=== PATIENT | male | born 1950 | race Caucasian/White ===

== ENCOUNTER 2018-09-15 08:40 | Inpatient (IN) | payer OTHER ==
--- OUTSIDE RECORDS SUMMARY | 2018-09-15 08:45 | XMS REPORT | Clinical Summary ---
:1950 Author Organization [facility] Address [address] [place] [address] Care Team Providers Name Role Phone John Dunbar MD Primary Care Provider Allergies Active Allergy Reactions Severity Noted Date Comments Naproxen Sodium Shortness Of Breath High 03/06/2017 Hives, palpitations Hydrocodone-Acetaminophen Shortness Of Breath High 03/06/2017 Hives, palpitations Medications Medication Sig Dispensed Refills Start End Status Date Date diazePAM (VALIUM) 5 MG Take 5 mg by 0 Active tablet mouth as needed for anxiety. aspirin (ECOTRIN) 81 MG Take 81 mg by 0 Active enteric coated tablet mouth every morning. phenazopyridine Take 1 tablet 50 tablet 0 12/07/19 Active (PYRIDIUM) 100 MG (100 mg total) 18 tablet by mouth 3 (three) times a day as needed for bladder spasms. tamsulosin (FLOMAX) 0.4 Take 2 180 capsule 3 02/12/20 Active mg capsuleIndications: capsules (0.8 18 BPH with mg total) by obstruction/lower mouth daily. urinary tract symptoms amLODIPine (NORVASC) 10 Take 1 tablet 90 tablet 3 06/24/19 Active mg tablet (10 mg total) 19 by mouth daily. atorvastatin (LIPITOR) Take 1 tablet 90 tablet 4 08/06/19 Active 80 MG tablet (80 mg total) 19 by mouth daily. Patient taking half tablet(40mg) daily hydroCHLOROthiazide TAKE 1 TABLET 90 tablet 3 09/02/19 Active (HYDRODIURIL) 25 MG BY MOUTH ONCE 19 tablet DAILY metoprolol tartrate Take 1 tablet 180 tablet 3 04/16/20 (LOPRESSOR) 100 mg (100 mg total) 17 018 tablet by mouth 2 (two) times a day. atorvastatin (LIPITOR) Take 0.5 90 tablet 3 04/26/20 Discontinued 80 MG tablet tablets (40 mg 17 019 total) by mouth daily. gabapentin (NEURONTIN) Take 1 tablet 30 tablet 0 09/06/19 600 mg tablet (600 mg total) 18 018 by mouth daily for 30 days. hydroCHLOROthiazide Take 1 tablet 90 tablet 3 09/05/19 Discontinued (HYDRODIURIL) 25 MG (25 mg total) 18 019 tablet by mouth daily. amLODIPine (NORVASC) 5 Take 5 mg by 0 Discontinued mg tablet mouth every 018 morning. GABAPENTIN ORAL Take 600 mg by 0 Discontinued mouth every 018 morning. tamsulosin (FLOMAX) 0.4 Take 1 capsule 90 capsule 3 10/08/19 Discontinued mg capsule,extended (0.4 mg total) 18 018 release by mouth 24hrIndications: BPH daily. with obstruction/lower urinary tract symptoms docusate sodium Take 1 capsule 60 capsule 0 10/16/19 (COLACE) 100 MG capsule (100 mg total) 18 018 by mouth 2 (two) times a day for 30 days. phenazopyridine Take 1 tablet 30 tablet 0 10/16/19 (PYRIDIUM) 100 MG (100 mg total) 18 018 tablet by mouth 3 (three) times a day for 10 days. amoxicillin-pot Take 1 tablet 1 tablet 0 11/16/19 clavulanate (AUGMENTIN) by mouth once 18 018 875-125 mg per for 1 dose. tabletIndications: Prophylaxis Hydronephrosis of left for kidney cystoscopy. ciprofloxacin (CIPRO) Take 500 mg by 0 Discontinued 500 MG tablet mouth once. 018 sulfamethoxazole-trimet Take 1 tablet 10 tablet 0 11/19/19 hoprim (BACTRIM DS) by mouth 2 18 018 800-160 mg per tablet (two) times a day for 5 days. docusate sodium Take 1 capsule 60 capsule 0 11/19/19 (COLACE) 100 MG capsule (100 mg total) 18 018 by mouth 2 (two) times a day for 30 days. oxybutynin XL (DITROPAN Take 1 tablet 15 tablet 0 11/18/ XL) 5 MG 24 hr tablet (5 mg total) 18 018 by mouth daily for 15 days. sulfamethoxazole-trimet Take 1 tablet 14 tablet 0 12/06/ hoprim (BACTRIM DS) by mouth 2 18 018 800-160 mg per tablet (two) times a day for 7 days. ciprofloxacin (CIPRO) Take 1 tablet 14 tablet 0 12/17/ 500 MG tablet (500 mg total) 18 018 by mouth 2 (two) times a day for 7 days. amLODIPine (NORVASC) 5 Take 1 tablet 90 tablet 0 05/14/20 Discontinued mg tablet (5 mg total) 18 019 by mouth every morning. atorvastatin (LIPITOR) Take 80 mg by 0 Discontinued 80 MG tablet mouth daily. 019 Patient taking half tablet(40mg) daily atorvastatin (LIPITOR) TAKE /2 90 tablet 0 08/04/ Discontinued 80 MG tablet TABLET BY 19 019 MOUTH EVERY DAY Active Problems Problem Noted Date Cervical spondylosis with myelopathy and radiculopathy 09/18/2017 Hydronephrosis 08/29/2017 Simple chronic bronchitis 04/22/2017 Overview: Patient with long standing smoking history. Current smoker with 1/2 PPD. totoal smoking history of more than 30 years with 1.5 PPD. Trying to stop smoking and currently doing on 1/2 PPD and using nicotine patches. He comes here for preop clearance for laminectomy surgery He otherwise denies any worsening sob. Never been admitted with copd exacerbation Started inhalers little while ago and is feeling better on those. He is not immunized and doesn't want to take flu and PNA shots. Exam is bland, PFT shows normal FEV1, GOLD stage A COPD Last Assessment & Plan: I would recommend to continue symbicort and spiriva as started previously Needs to take them in perioperative period as well He needs to stop smoking completely now, as stopping smoking around a month of surgery has been shown to minimize complications in perioperative period Perioperative steroids may help too. His PFT shows preserved FEV1, Will do CT chest for emphysema and also echo I want him to stop smoking, did extensive counseling, spent over 40 minutes Did counseling for vaccination as well. He is moderate risk for perioperative complications due to his age and COPD Essential hypertension 04/22/2017 Overview: His BP still high today Has been started on metoprolol 100 mg daily and also on HCTZ Last Assessment & Plan: Hypertension is unchanged. Continue current treatment regimen. Dietary sodium restriction. Weight loss. Regular aerobic exercise. Stop smoking. Continue current medications. I would suggest to change her to an alternative agent. BB has been shown to make COPD worse. I would suggest to use amlodipin or BROOKE-I Cervical spondylosis with myelopathy 03/11/2017 Tobacco abuse disorder 03/11/2017 Overview: Still smoking 1/2 PPD On nicotine patch 21 mg daily Last Assessment & Plan: He needs to be completely off smoking around the surgery time He should stop smoking now Spondylolisthesis of cervicothoracic region 03/11/2017 Spondylolisthesis of cervical region 03/11/2017 Cervical radiculopathy at C6 03/11/2017 Encounters Date Type Specialty Care Team Description 09/13/2018 Refill Cardiology Slade June MD 09/12/2018 Telephone Cardiology colleen Gilmore Lipangie Negrete RN dose 09/12/2018 Refill Cardiology Napoleon Gilmore Refusama Negrete RN 08/30/2018 Refill Cardiology Slade June MD 08/06/2018 Refill Cardiology Napoleon Gilmore RN 07/30/2018 Refill Slade Rosenthal MD 06/27/2018 Telephone Cardiology Sarabjit Result - Labs JOSEP Cordero 06/24/2018 Lab Lab Slade June HyperlipidemiaShay MD unspecified hyperlipidemia type 06/24/2018 Office Visit Cardiology Slade June Essential hypertension ( Primary Dx); MD Shay Hyperlipidemia, unspecified hyperlipidemia type 05/14/2018 Refill Cardiology Napoleon Gilmore RN 03/27/2018 Hospital Encounter Radiology 02/19/2018 Telephone Urology Deborah Jones MD 02/08/2018 Telephone Urology Robert BPH with MD Deborah obstruction/lower urinary tract symptoms 01/28/2018 Telephone Urology Jackeline Julian MA 01/15/2018 Telephone Urology Deborah Jones MD 01/03/2018 Office Visit Urology Robert, Elevated PSA (Primary Dx); MD Deborah Hydronephrosis of left kidney 12/24/2017 Hospital Encounter Radiology Robert, Other hydronephrosis MD Deborah 12/24/2017 Hospital Encounter Radiology Robert, Other hydronephrosis MD Deborah 12/17/2017 Telephone Urology Jackeline Julian MA 12/16/2017 Orders Only Urology Ginette Pathak MD 12/06/2017 Telephone Urology Eliel, Dysuria (Primary Dx) JOSEP Viveros 11/27/2017 Telephone Urology Eliel, Other hydronephrosis JOSEP Viveros (Primary Dx) 11/22/2017 Office Visit Urology Robert, Hydronephrosis, unspecified hydronephrosis type (Primary Dx); MD Deborah Elevated PSA 11/19/2017 Telephone Urology Deborah Jones MD 11/18/2017 Surgery Urology YAHAIRA Jones, LEFT MD Deborah RETROGRADE PYELOGRAM, LEFT URETEROSCOPY, LEFT STENT EXCHANGE 11/18/2017 Anesthesia Event Urology Hedy Richard MD 11/18/2017 Hospital Encounter Urology Deborah Jones MD 11/15/2017 Hospital Encounter Radiology Deborah Jones MD 11/15/2017 Hospital Encounter Radiology Robert, Hydronephrosis of MD Deobrah left kidney 11/15/2017 Pre-Admit Testing Pre-Admission Lucy Jonesnephrosis, Appointment Testing MD Deborah unspecified hydronephrosis type 11/15/2017 Procedure visit Urology Robert, Hydronephrosis of left kidney ( Primary Dx); MD Deborah Retained ureteral stent 11/15/2017 Orders Only Urology Ovidio, Hydronephrosis, Latasha, MA unspecified hydronephrosis type (Primary Dx) 10/29/2017 Telephone Urology Robert, BPH with MD Deborah obstruction/lower urinary tract symptoms (Primary Dx) 10/16/2017 Telephone Urology Deborah Jones MD 10/15/2017 Surgery Urology SHAY JonesO, LEFT MD Deborah RETROGRADE PYELOGRAM 10/15/2017 Anesthesia Event Urology Gogo Giang APRN 10/15/2017 Hospital Encounter Urology Deborah Jones MD 10/14/2017 Telephone Cardiology Mando, cardiac clearance HAY Negrete 10/09/2017 Telephone Urology Deborah Jones MD 10/08/2017 Documentation Pulmonology Caden, Faxed surgical HAY Shukla clearance 10/07/2017 Pre-Admit Testing Pre-Admission Robert, Preoperative testing Appointment Testing MD Deborah (Primary Dx) 10/07/2017 Office Visit Urology Robert, Hydronephrosis, unspecified hydronephrosis type (Primary Dx); MD Deborah BPH with obstruction/lower urinary tract symptoms 10/04/2017 Hospital Encounter Radiology Robert, Hydronephrosis, MD Deborah unspecified hydronephrosis type 10/02/2017 Telephone Urology Deborah Jones MD 10/01/2017 Telephone Urology Eliel, Lucynephrosis, JOSEP Viveros unspecified hydronephrosis type (Primary Dx) 09/19/2017 Telephone Neurosurgery Jossy Jimenez LVN 09/18/2017 Hospital Encounter General Surgery Danilo Garsia MD after 09/14/2017 Family History Medical History Relation Name Comments Arthritis Father Nick Baires Clotting disorder Father Nick Baires Heart attack Father Nick Baires Heart disease Father Nick Baires Heart failure Father Nick Baires Hypertension Father Nick Baires Arthritis Mother Diabetes Mother Relation Name Status Comments Father Nick Baires Mother Social History Tobacco Use Types Packs/Day Years Used Date Current Every Day Smoker Cigarettes 0.75 30 Started: 11/15/1985 Smokeless Tobacco: Never Used Tobacco Cessation: Ready to Quit: Yes Comments: pt trying to quit, has decreased from 2 packs to 1.5 packs now to 0.75 pack per day, using nicotine patch Alcohol Use Drinks/Week oz/Week Comments Yes 0-2 Glasses of wine 0.0 - 1.2 Sex Assigned at Date Recorded Not on file Job Start Date Occupation Industry Not on file Not on file Not on file Travel History Travel Start Travel End No recent travel history available. Last Filed Vital Signs Vital Sign Reading Time Taken Blood Pressure 167/77 06/24/2018 1:39 PM [employer] WORK[employer] Pulse 83 06/24/2018 1:39 PM [employer] Temperature 36.3 C (97.3 F) 11/18/2017 4:24 PM CDT Respiratory Rate 15 11/18/2017 4:24 PM CDT Oxygen Saturation 94% 11/18/2017 4:24 PM CDT Inhaled Oxygen Concentration - - Weight 78 kg (172 lb) 06/24/2018 1:39 PM [employer] WORK[employer] Height 172.7 cm (5' 8") 06/24/2018 1:39 PM [employer] Body Mass Index 26.15 06/24/2018 1:39 PM [employer] WORKER Plan of Treatment Date Type Specialty Care Team Description 09/23/2018 Office Visit Cardiology Slade June MD [address] [facility] [address] [place] [address] Health Maintenance Due Date Last Done Comments COLON CANCER SCREENING 1999 SHINGLES VACCINES (#1) 1999 65+ PNEUMOCOCCAL VACCINE (1 of 2 - PCV13) 2014 PNEUMOCOCCAL POLYSACCHARIDE VACCINE AGE 65 AND OVER 2014 INFLUENZA VACCINE 01/15/2019 Implants Implanted Type Area Ad Trafficker Device Shelf Model / Identifier Expiration Serial / Date Lot Stent Uretl Unvrsa 7fr 26cm Hydrphlc W/ Gw - [id number] Urological Left: [employer] UROLOGICAL 08/25/2019 [id number] / Implanted: Qty: 1 on 10/15/2017 by Deborah Jones MD Implants or Ureter, / Sets [place] [id number] Stent Uretl Unvrsa 6fr 28cm Hydrphlc W/ Gw - [id number] Urological Left: [employer] UROLOGICAL 08/06/2020 [id number] / Implanted: Qty: 1 on 11/18/2017 by Deborah Jones MD Implants or Ureter, / Sets [place] [id number] Procedures Procedure Name Priority Date/Time Associated Diagnosis Comments COPY RECEIVED FROM: Routine 06/24/2018 2:00 Results for this PM [employer] WORK[employer] procedure are in the results section. NON HDL CHOLESTEROL Routine 06/24/2018 2:00 Results for this (REFLEX [facility]) PM [employer] WORKER procedure are in the results section. CHOL/HDLC RATIO Routine 06/24/2018 2:00 Results for this (REFLEX [facility]) PM [employer] WORKER procedure are in the results section. LDL-CHOLESTEROL Routine 06/24/2018 2:00 Results for this (REFLEX [facility]) PM [employer] WORKER procedure are in the results section. TRIGLYCERIDES Routine 06/24/2018 2:00 Results for this PM [employer] WORKER procedure are in the results section. HDL CHOLESTEROL Routine 06/24/2018 2:00 Results for this PM [employer] WORKER procedure are in the results section. CHOLESTEROL Routine 06/24/2018 2:00 Results for this PM [employer] WORKER procedure are in the results section. COPY(IES) SENT TO: Routine 06/24/2018 2:00 Results for this PM [employer] WORK[employer] procedure are in the results section. LIPID PANEL Routine 06/24/2018 2:00 Hyperlipidemia, Results for this PM [employer] WORKER unspecified procedure are in hyperlipidemia type the results section. PROSTATE SPECIFIC Routine 01/03/2018 11:37 Elevated PSA Results for this ANTIGEN AM CDT procedure are in the results section. NM RENAL SCAN WFLOW Routine 12/24/2017 1:24 Other hydronephrosis Results for this FUNCT SGL INT W/MAG 3 PM CDT procedure are in the results section. US RENAL Routine 12/24/2017 12:05 Other hydronephrosis Results for this PM CDT procedure are in the results section. URINALYSIS, AUTOMATED Routine 12/11/2017 12:18 Dysuria Results for this WITH MICROSCOPY PM CDT procedure are in the results section. URINE CULTURE Routine 12/11/2017 12:18 Dysuria Results for this PM CDT procedure are in the results section. PROSTATE SPECIFIC Routine 11/22/2017 10:28 Hydronephrosis, Results for this ANTIGEN AM CDT unspecified procedure are in hydronephrosis type the results section. POC URINALYSIS Routine 11/22/2017 10:11 Hydronephrosis, Results for this DIPSTICK AM CDT unspecified procedure are in hydronephrosis type the results section. FL PYELOGRAM Routine 11/18/2017 3:00 Results for this RETROGRADE PM CDT procedure are in the results section. CYSTOSCOPY, WITH 11/18/2017 2:00 Hydronephrosis URETERAL STENT PM CDT REPLACEMENT Special Needs REQ 1400 START ANESTHESIA INTUBATION Routine 11/18/2017 1:52 PM CDT Procedure Note - Veronique Hayes - 11/18/2017 1:52 PM CDT Airway Performed by: VERONIQUE HAYES Authorized by: JAVI SEQUEIRA Location: [place] Difficult Airway: No Resident/DRUM DRIER/AA: VERONIQUE HAYES Performed by: resident/DRUM DRIER/AA Preoxygenated with 100% O2: Yes Mask Ventilation: Easy mask Final Airway Type: Supraglottic airway Final LMA: I-Gel LMA Size: 5 Number of Attempts at Approach: 1 URINALYSIS, AUTOMATED Routine 11/15/2017 3:23 Hydronephrosis of left Results for this WITH MICROSCOPY PM CDT kidney procedure are in Retained ureteral stent the results section. URINE CULTURE Routine 11/15/2017 3:23 Hydronephrosis of left Results for this PM CDT kidney procedure are in Retained ureteral stent the results section. XR KUB KIDNEY URETER Routine 11/15/2017 2:19 Hydronephrosis of left Results for this BLADDER PM CDT kidney procedure are in the results section. XR CHEST 2 VW Routine 11/15/2017 2:19 Hydronephrosis, Results for this PM CDT unspecified procedure are in hydronephrosis type the results section. PROTHROMBIN TIME WITH STAT 11/15/2017 1:40 Results for this INR PM CDT procedure are in the results section. PARTIAL STAT 11/15/2017 1:40 Results for this THROMBOPLASTIN TIME PM CDT procedure are in (PTT) the results section. ECG PRE/POST OP Routine 11/15/2017 1:30 Hydronephrosis, Results for this PM CDT unspecified procedure are in hydronephrosis type the results section. ZZESTIMATED GFR STAT 11/15/2017 1:20 Results for this PM CDT procedure are in the results section. COMPREHENSIVE STAT 11/15/2017 1:20 Hydronephrosis, Results for this METABOLIC PANEL PM CDT unspecified procedure are in hydronephrosis type the results section. HC COMPLETE BLD COUNT STAT 11/15/2017 1:20 Hydronephrosis, Results for this W/AUTO DIFF PM CDT unspecified procedure are in hydronephrosis type the results section. PROSTATE SPECIFIC Routine 10/30/2017 10:15 BPH with Results for this ANTIGEN AM CDT obstruction/lower procedure are in urinary tract symptoms the results section. FL PYELOGRAM Routine 10/15/2017 10:28 Results for this RETROGRADE AM CDT procedure are in the results section. CYSTO STENT INSERTION 10/15/2017 10:00 Hydronephrosis, left AM CDT CYSTO RETROGRADE 10/15/2017 10:00 Hydronephrosis, left AM CDT ND AN ELECTIVE Routine 10/15/2017 9:42 SUPRAGLOTTIC AIRWAY AM CDT Procedure Note - Atif Shields CRNA - 10/15/2017 9:42 AM CDT Airway Date/Time: 10/15/2017 9:42 AM Performed by: ATIF SHIELDS Authorized by: PADMA PIERCE Location: OR Urgency: Elective Difficult Airway: No Resident/DRUM DRIER/AA: ATIF SHIELDS Performed by: resident/DRUM DRIER/AA Preoxygenated with 100% O2: Yes C-spine Precautions Maintained Throughout: Yes Mask Ventilation: Not attempted Final Airway Type: Supraglottic airway Final LMA: Classic LMA Size: 5 Number of Attempts at Approach: 1 ECG 12-LEAD Routine 10/07/2017 4:08 Preoperative testing Results for this PM CDT procedure are in the results section. MICROSCOPIC Routine 10/07/2017 3:45 Results for this EXAMINATION PM CDT procedure are in the results section. URINALYSIS, AUTOMATED Routine 10/07/2017 3:45 Results for this WITH MICROSCOPY PM CDT procedure are in the results section. URINE CULTURE Routine 10/07/2017 3:45 Hydronephrosis, Results for this PM CDT unspecified procedure are in hydronephrosis type the results section. ZZESTIMATED GFR Routine 10/07/2017 3:40 Results for this PM CDT procedure are in the results section. COMPREHENSIVE Routine 10/07/2017 3:40 Preoperative testing Results for this METABOLIC PANEL PM CDT procedure are in the results section. HC COMPLETE BLD COUNT Routine 10/07/2017 3:40 Preoperative testing Results for this W/AUTO DIFF PM CDT procedure are in the results section. PARTIAL THROMBOPLASTIN Routine 10/07/2017 3:40 Preoperative testing Results for this TIME (PTT) PM CDT procedure are in the results section. PROTHROMBIN TIME WITH Routine 10/07/2017 3:40 Preoperative testing Results for this INR PM CDT procedure are in the results section. POC UROFLOWMETRY Routine 10/07/2017 12:12 Hydronephrosis, Results for this PM CDT unspecified procedure are in hydronephrosis type the results section. [id number] Routine 10/07/2017 12:12 Hydronephrosis, Results for this PM CDT unspecified procedure are in hydronephrosis type the results section. NM RENAL SCAN WFLOW Routine 10/04/2017 12:33 Hydronephrosis, Results for this FUNCT SGL INT W/MAG 3 PM CDT unspecified procedure are in hydronephrosis type the results section. after 09/14/2017 Results NON HDL CHOLESTEROL (REFLEX [facility]) (06/24/2018 2:00 PM METAL BONDING WORKER) Non-HDL cholesterol 98 <130 mg/dL (calc) [facility] Comment: [place] For patients with diabetes plus 1 major ASCVD risk factor, treating to a non-HDL-C goal of <100 mg/dL (LDL-C of <70 mg/dL) is considered a therapeutic option. Resulting Agency Comment Performing Organization Information: Site ID: [id number] Name: [facility] Address: [address] [place], [place] [id number] Director: Mel Espinal Performing Organization Address City/[facility] [place] [address] CHOL/HDLC RATIO (REFLEX [facility]) (06/24/2018 2:00 PM METAL BONDING WORKER) Cholesterol/HDL ratio 4.1 <5.0 (calc) [facility] [place] Resulting Agency Comment Performing Organization Information: Site ID: [id number] Name: [facility] Address: [address] [place] [address] Director: Mel Espinal Performing Organization Address City/[facility] [place] [place] [address] COPY RECEIVED FROM: (06/24/2018 2:00 PM METAL BONDING WORKER) Copy received from: [facility] Comment: MARY JOSUE CARDIO [address] [facility] [address] [place] [address] Performing Organization Address City/[facility] Phone Number [facility] LDL-CHOLESTEROL (REFLEX [facility]) (06/24/2018 2:00 PM METAL BONDING WORKER) LDL cholesterol 70 mg/dL (calc) [facility] calculated Comment: HARVARD Reference range: <100 Desirable range <100 mg/dL for primary prevention; <70 mg/dL for patients with CHD or diabetic patients with > or=2 CHD risk factors. LDL-C is now calculated using the Emilee calculation, which is a validated novel method providing better accuracy than the Friedewald equation in the estimation of LDL-C. Jeramy CRAIG et al. KASSIE. 2013;310(19): 0679-7593 (http://education.Gobbler.GHash.IO/faq/KGN715) Resulting Agency Comment Performing Organization Information: Site ID: [id number] Name: [facility] Address: [address] [place] [phone] Director: Mel Espinal Performing Organization Address [facility] Phone Number [facility] [place] [address] [place] [phone] COPY(IES) SENT TO: (06/24/2018 2:00 PM METAL BONDING WORKER) Copies/mL [facility] Comment: DEBAKEY CARDIO [address] [place] [address] Performing Organization Address City/State/Zipcode Phone Number [facility] Triglycerides (06/24/2018 2:00 PM METAL BONDING WORKER) Triglycerides 226 (H) <150 mg/dL [facility] [place] Resulting Agency Comment Performing Organization Information: Site ID: [id number] Name: [facility] Address: [address] [place] [phone] Director: Mel Espinal Performing Organization Address [facility] Phone Number [employer] [place] [phone] HDL cholesterol (06/24/2018 2:00 PM METAL BONDING WORKER) HDL cholesterol 32 (L) >40 mg/dL Sr[facility] [place] Resulting Agency Comment Performing Organization Information: Site ID: [id number] Name: [facility] Address: [address] [place] [phone] Director: Mel Espinal Performing Organization Address [facility] Phone Number [employer] [place] [address] [place] [phone] Cholesterol (06/24/2018 2:00 PM METAL BONDING WORKER) Cholesterol, total 130 <200 mg/dL [facility] [place] Resulting Agency Comment Performing Organization Information: Site ID: RGA Name: [facility] Address: [address] [place] [phone] Director: Mel Espinal Performing Organization Address [facility] Phone Number [employer] [place] [address] [place] [phone] Lipid panel (06/24/2018 2:00 PM METAL BONDING WORKER) Cholesterol, total 130 <200 mg/dL Sr[facility] [place] HDL cholesterol 32 (L) >40 mg/dL Sr[facility] [place] Triglycerides 226 (H) <150 mg/dL Sr.[facility] [place] LDL cholesterol 70 mg/dL (calc) [facility] [employer] [facility] calculated Comment: [place] Reference range: <100 Desirable range <100 mg/dL for primary prevention; <70 mg/dL for patients with CHD or diabetic patients with > or=2 CHD risk factors. LDL-C is now calculated using the Emilee calculation, which is a validated novel method providing better accuracy than the Friedewald equation in the estimation of LDL-C. Jeramy CRAIG et al. KASSIE. 2013;310(19): 9953-6310 (http://education.Happy Metrix/faq/ZVS810) Cholesterol/HDL ratio 4.1 <5.0 (calc) [facility] [place] Non-HDL cholesterol 98 <130 mg/dL [facility] Comment: (calc) AREVALO For patients with diabetes plus 1 major ASCVD risk factor, treating to a non-HDL-C goal of <100 mg/dL (LDL-C of <70 mg/dL) is considered a therapeutic option. Specimen Blood Resulting Agency Comment Performing Organization Information: Site ID: [id number] Name: [facility] Address: [address] [place] [phone] Director: Mel Espinal Performing Organization Address City/State/[place]code [place] [address] Prostate specific antigen (01/03/2018 11:37 AM CDT)Only the most recent of3 resultswithin the time period is included. PSA 4.9 (H) < OR=4.0 ng/mL [facility] Comment: The total PSA value from this assay system is standardized against the WHO standard. The test result will be approximately 20% lower when compared to the equimolar-standardized total PSA (Rubi Ayana). Comparison of serial PSA results should be interpreted with this fact in mind. This test was performed using the Siemens chemiluminescent method. Values obtained from different assay methods cannot be used interchangeably. PSA levels, regardless of value, should not be interpreted as absolute evidence of the presence or absence of disease. Specimen Blood Resulting Agency Comment Performing Organization Information: Site ID: [id number] Name: [facility] Address: [address] [place] [address] Director: Mel Espinal Performing Organization Address City/State/Zipcode Phone Number [facility] [place] [address] [place], [place] [phone] NM Renal Scan Wflow Funct Sgl Int W/Mag 3 (12/24/2017 1:24 PM CDT)Only the most recent of2 resultswithin the time period is included. Narrative Performed At PROCEDURE:NM RENAL SCAN WFLOW FUNCT SGL INT W MAG 3 [facility]IANT INDICATION:Hydronephrosis. TECHNIQUE: The patient was injected with 10 mCi of Tc-99m MAG-3, IV. Dynamic images of the abdomen were acquired for 40 minutes. At 20 minutes, a standard dose of IV lasix was administered. FINDINGS:Perfusion to both kidneys appears normal.Cortical transit time through both kidneys is less than 5 minutes.Urine flows freely from the right kidney into the bladder.There is stasis in the left renal pelvis at 20 minutes, with a relatively poor response to Lasix.The half-time of emptying is greater than 20 minutes, but a complete obstruction is not seen.Scan findings appear similar to 10/04/2017. Normal washout is less than 10 minutes. High grade obstruction is suggested if greater than 20 minutes. Between 10 and 20 minutes is indeterminate. Split function:Left kidney 29%, right kidney 71%. IMPRESSION: 1.Probable significant partial obstruction of the left kidney, similar to 10/04/2017. 2.Split function, above. 3.No evidence for obstruction of the right kidney. [facility]-[id number] Procedure Note Interface, Radiology Results Incoming - 12/24/2017 2:10 PM CDT PROCEDURE: NM RENAL SCAN WFLOW FUNCT SGL INT W MAG 3 INDICATION: Hydronephrosis. TECHNIQUE: The patient was injected with 10 mCi of Tc-99m MAG-3, IV. Dynamic images of the abdomen were acquired for 40 minutes. At 20 minutes, a standard dose of IV lasix was administered. FINDINGS: Perfusion to both kidneys appears normal. Cortical transit time through both kidneys is less than 5 minutes. Urine flows freely from the right kidney into the bladder. There is stasis in the left renal pelvis at 20 minutes , with a relatively poor response to Lasix. The half-time of emptying is greater than 20 minutes, but a complete obstruction is not seen. Scan findings appear similar to 10/04/2017. Normal washout is less than 10 minutes. High grade obstruction is suggested if greater than 20 minutes. Between 10 and 20 minutes is indeterminate. Split function: Left kidney 29%, right kidney 71%. IMPRESSION: 1. Probable significant partial obstruction of the left kidney, similar to . 2. Split function, above. 3. No evidence for obstruction of the right kidney. [facility]-[id number] Performing Organization Address [facility] Phone Number [facility] [address] [place] [address] US Renal (12/24/2017 12:05 PM CDT) Narrative Performed At EXAMINATION:US RENAL [facility] CLINICAL HISTORY:N13.39 Other hydronephrosis, hydronephrosis COMPARISON:None. FINDINGS: The kidneys are normal in size and echogenicity. There is no evidence of renal mass or calculus. Marked hydronephrosis is noted involving the left kidney. The right kidney measures 12.5 x 5.7 x 5.6 cm. The left kidney measures 12.3 x 4 x 5.8 cm. Some possible mucosal thickening posteriorly as well as a questionable trabeculation. Further evaluation with cystoscopy is recommended. IMPRESSION: Marked hydronephrosis involving the left kidney. [facility]-[id number] Procedure Note [facility], Radiology Results Incoming - 12/24/2017 12:52 PM CDT EXAMINATION: US RENAL CLINICAL HISTORY: N13.39 Other hydronephrosis, hydronephrosis COMPARISON: None. FINDINGS: The kidneys are normal in size and echogenicity. There is no evidence of renal mass or calculus. Marked hydronephrosis is noted involving the left kidney. The right kidney measures 12.5 x 5.7 x 5.6 cm. The left kidney measures 12.3 x 4 x 5.8 cm. Some possible mucosal thickening posteriorly as well as a questionable trabeculation. Further evaluation with cystoscopy is recommended. IMPRESSION: Marked hydronephrosis involving the left kidney. [facility]-[id number] Performing Organization Address [facility] Phone Number [facility] [address] [place] [address] Urinalysis, automated with microscopy (12/11/2017 12:18 PM CDT)Only the most recent of3 resultswithin the time period is included. Color, UA YELLOW YELLOW [facility] Appearance CLOUDY (A) CLEAR [facility] Specific gravity, urine 1.015 1.001 - 1.035 [facility] [place] pH, urine 6.0 5.0 - 8.0 [facility] [place] Glucose, urine NEGATIVE NEGATIVE [facility] Bilirubin, UA NEGATIVE NEGATIVE [facility] [place] Ketones, UA NEGATIVE NEGATIVE [facility] [place] Occult blood, urine TRACE (A) NEGATIVE [facility] [place] Protein, UA NEGATIVE NEGATIVE [facility] [place] Nitrite, UA NEGATIVE NEGATIVE [facility] [place] Leukocyte esterase, UA 3+ (A) NEGATIVE [facility] [place] WBC, UA > OR=60 (A) < OR=5 /HPF [facility] [place] RBC, UA 0-2 < OR=2 /HPF [facility] [place] Squamous epithelial cells, UA NONE SEEN < OR=5 /HPF [facility] [place] Bacteria, UA NONE SEEN NONE SEEN /HPF [facility] [place] Hyaline casts, UA NONE SEEN NONE SEEN /LPF [facility] Specimen Urine Resulting Agency Comment Performing Organization Information: Site ID: [facility] Name: [facility] Address: [address] [place] [phone] Director: Mel Espinal Performing Organization Address City/[facility] Phone Number [employer] [place] [phone] Urine culture (12/11/2017 12:18 PM CDT)Only the most recent of3 resultswithin the time period is included. Urine culture SEE NOTE (A) [facility] Comment: CULTURE, URINE, ROUTINE MICRO NUMBER:[id number] TEST STATUS: FINAL SPECIMEN SOURCE: URINE, CLEAN CATCH SPECIMEN QUALITY:ADEQUATE RESULT:Greater than 100,000 CFU/mL of Enterococcus species Enterococcus sp. INT DARRYL AMPICILLIN S <=2 CIPROFLOXACINS <=0.5 LEVOFLOXACIN S 1 NITROFURANTOIN S <=16 TETRACYCLINE R >=16 VANCOMYCIN S 2 S=SusceptibleI=IntermediateR=Resistant*=Not Tested NR=Not ReportedNN=See Therapy Comments Specimen Urine Resulting Agency Comment Performing Organization Information: Site ID: [facility] Name: [facility] Address: [address] [place] [phone] Director: Mel Espinal Performing Organization Address [facility]/Zipcode Phone Number [facility] [place] [address] [place], [place] [phone] POC urinalysis dipstick (11/22/2017 10:11 AM CDT) Color urine, POC Yellow Clarity urine, POC Clear Glucose urine, POC Negative Negative Bilirubin urine, POC Negative Negative Ketones urine, POC Negative Negative Specific gravity urine, POC 1.020 1.005 - 1.030 Blood urine, POC Small (A) Negative pH urine, POC 7.0 5.0, 5.5, 6.0, 6.5, 7.0, 7.5, 8.0, 8.5 Protein urine, POC Negative Negative Urobilinogen urine, POC <2.0 <2.0 Nitrite urine, POC Negative Negative Leukocyte esterase urine, POC Trace (A) Negative Specimen Urine [place] Pyelogram Retrograde (11/18/2017 3:00 PM CDT)Only the most recent of2 resultswithin the time period is included. Narrative Performed At Technique: Multiple images from a left retrograde pyelogram are RADIANT provided. COMPARISON: None IMPRESSION: There is irregularity of the lower one third of the left ureter. The ureter is slightly dilated proximally. Significant hydronephrosis of the left kidney. A stent was subsequently placed. Correlation is recommended. Procedure Note Interface, Radiology Results Incoming - 11/18/2017 5:56 PM CDT Technique: Multiple images from a left retrograde pyelogram are provided. COMPARISON: None IMPRESSION: There is irregularity of the lower one third of the left ureter. The ureter is slightly dilated proximally. Significant hydronephrosis of the left kidney. A stent was subsequently placed. Correlation is recommended. Performing Organization Address [facility] Cent[facility] Phone Number [facility] [address] [place] [address] XR Kub Kidney Ureter Bladder (11/15/2017 2:19 PM CDT) Narrative Performed At EXAMINATION:XR KUB KIDNEY URETER BLADDER [facility] CLINICAL HISTORY:N13.30 Unspecified hydronephrosis, kidney stone COMPARISON:15 Oct 2017 IMPRESSION: There is a double pigtail ureteral stent on the left.No definite renal calculi are identified. There is a nonspecific bowel gas pattern. [facility]-[id number] Procedure Note Interface, Radiology Results Incoming - 11/15/2017 2:26 PM CDT EXAMINATION: XR KUB KIDNEY URETER BLADDER CLINICAL HISTORY: N13.30 Unspecified hydronephrosis, kidney stone COMPARISON: 15 Oct 2017 IMPRESSION: There is a double pigtail ureteral stent on the left. No definite renal calculi are identified. There is a nonspecific bowel gas pattern. [facility]-[id number] Performing Organization Address [facility] Phone Number [facility] [address] [place] [address] XR Chest 2 Vw (11/15/2017 2:19 PM CDT) Narrative Performed At EXAMINATION:XR [facility] 2 [facility] CLINICAL H[facility]:N13.30 Unspecified hydronephrosis, Pre-Op surgery schedule 11 18 2017 IMPRESSION: Normal chest. PA and lateral views were obtained. Heart and mediastinum are within normal limits. Lungs are clear. Regional skeleton is intact. [facility]-[id number] Procedure Note Interface, Radiology Results Incoming - 11/15/2017 2:24 PM CDT EXAMINATION: XR CHEST 2 VW CLINICAL HISTORY: N13.30 Unspecified hydronephrosis, Pre-Op surgery schedule 11 18 2017 IMPRESSION: Normal chest. PA and lateral views were obtained. Heart and mediastinum are within normal limits. Lungs are clear. Regional skeleton is intact. [facility]-[id number] Performing Organization Address [facility] Phone Number [facility] [address] [place] [address] Partial thromboplastin time, activated (11/15/2017 1:40 PM CDT)Only the most recent of2 resultswithin the time period is included. PTT 30.9 23.0 - 36.0 sec [facility] DEPARTMENT OF PATHOLOGY Comment: AND GENOMIC MEDICINE PTT therapeutic range for unfractionated heparin is 61.0-112.0 seconds which corresponds to Anti-Xa 0.3-0.7 U/ml. Specimen Blood Performing Organization Address [facility] Phone Number [facility] DEPARTMENT OF PATHOLOGY AND [address] [place] [phone] [employer] Prothrombin time with INR (11/15/2017 1:40 PM CDT)Only the most recent of2 resultswithin the time period is included. Prothrombin time 13.2 12.0 - 15.0 sec [facility] DEPARTMENT OF PATHOLOGY AND GENOMIC MEDICINE INR 1.0 [facility] DEPARTMENT OF Comment: PATHOLOGY AND GENOMIC The International Normalized Ratio (INR) is a therapeutic MEDICINE monitoring tool for patients who are stable on oral anticoagulant therapy. An INR of 2.0-3.0 is suggested for deep vein thrombosis/pulmonary embolism. Specimen Blood Performing Organization Address City/State/Zipcode Phone Number [facility] DEPARTMENT OF PATHOLOGY AND [address] [place] [phone] [facility] MEDICINE ECG Pre/Post Op (11/15/2017 1:30 PM CDT) Ventricular rate 69 [facility] MUSE Atrial rate 69 [facility] MUSE ND interval 190 [facility] MUSE QRSD interval 98 [facility] MUSE QT interval 392 [facility] MUSE QTC interval 420 [facility] MUSE P axis 1 70 [facility] MUSE QRS axis 1 54 [facility] MUSE T wave axis 62 [facility] MUSE EKG impression Normal sinus rhythm-Normal ECG-In automated [facility] MUSE comparison with ECG of 07-OCT-2017 16:08,-No significant change was found- Performing Organization Address [facility] Phone Number [facility] MUSE [address] [place] [phone] Estimated GFR (11/15/2017 1:20 PM CDT)Only the most recent of2 resultswithin the time period is included. GFR Non Af Amer 67 mL/min/1.73 m2 [facility] DEPARTMENT OF PATHOLOGY AND GENOMIC MEDICINE GFR Af Amer 81 mL/min/1.73 m2 [facility] DEPARTMENT OF Comment: PATHOLOGY AND GENOMIC Chronic kidney disease: <60 mL/min/1.73m2 MEDICINE Kidney failure: <15 mL/min/1.73m2 The estimated GFR is calculated from the IDMS-traceable Modification of Diet in Renal Disease Equation. The accuracy of the calculation is poor when the creatinine is normal. Calculated values >90 mL/min/1.73m2 are not reported. This equation has not been validated in children (<18 years), women, the elderly (>70 years), or ethnic groups other than Caucasians and Americans. Specimen Plasma specimen Performing Organization Address City/[facility]/Zipcode Phone Number [facility] DEPARTMENT OF PATHOLOGY AND [address] [place] [phone] [facility] CBC with platelet and differential (11/15/2017 1:20 PM CDT)Only the most recent of2 resultswithin the time period is included. WBC 11.82 (H) 4.50 - 11.00 k/uL [facility] DEPARTMENT OF PATHOLOGY AND GENOMIC MEDICINE RBC 5.52 4.40 - 6.00 m/uL [facility] DEPARTMENT OF PATHOLOGY AND GENOMIC MEDICINE HGB 17.0 14.0 - 18.0 g/dL [facility] DEPARTMENT OF PATHOLOGY AND GENOMIC MEDICINE HCT 51.0 41.0 - 51.0 % [facility] DEPARTMENT OF PATHOLOGY AND GENOMIC MEDICINE MCV 92.4 82.0 - 100.0 fL [facility] DEPARTMENT OF PATHOLOGY AND GENOMIC MEDICINE MCH 30.8 27.0 - 34.0 pg [facility] DEPARTMENT OF PATHOLOGY AND GENOMIC MEDICINE MCHC 33.3 31.0 - 37.0 g/dL [facility] DEPARTMENT OF PATHOLOGY AND GENOMIC MEDICINE RDW - SD 42.6 37.0 - 55.0 fL [facility] DEPARTMENT OF PATHOLOGY AND GENOMIC MEDICINE MPV 9.9 8.8 - 13.2 fL [facility] DEPARTMENT OF PATHOLOGY AND GENOMIC MEDICINE Platelet count 291 150 - 400 k/uL [facility] DEPARTMENT OF PATHOLOGY AND GENOMIC MEDICINE Nucleated RBC 0.00 /100 WBC [facility] DEPARTMENT OF PATHOLOGY AND GENOMIC MEDICINE Neutrophils 56.7 39.0 - 69.0 % [facility] DEPARTMENT OF PATHOLOGY AND GENOMIC MEDICINE Lymphocytes 28.6 25.0 - 45.0 % [facility] DEPARTMENT OF PATHOLOGY AND GENOMIC MEDICINE Monocytes 11.3 (H) 0.0 - 10.0 % [facility] DEPARTMENT OF PATHOLOGY AND GENOMIC MEDICINE Eosinophils 2.8 0.0 - 5.0 % [facility] DEPARTMENT OF PATHOLOGY AND GENOMIC MEDICINE Basophils 0.3 0.0 - 1.0 % [facility] DEPARTMENT OF PATHOLOGY AND GENOMIC MEDICINE Immature granulocytes 0.3Comment: 0.0 - 1.0 % [facility] DEPARTMENT OF "Immature PATHOLOGY AND GENOMIC granulocytes" MEDICINE (promyelocytes, myelocytes, metamyelocytes) Specimen Blood Performing Organization Address City/State/Zipcode Phone Number [facility] DEPARTMENT OF PATHOLOGY AND [address] [place] [address] [employer] MEDICINE Comprehensive metabolic panel (11/15/2017 1:20 PM CDT)Only the most recent of2 resultswithin the time period is included. Sodium 141 135 - 148 mEq/L [facility] DEPARTMENT OF PATHOLOGY AND GENOMIC MEDICINE Potassium 3.7 3.5 - 5.0 mEq/L [facility] DEPARTMENT OF PATHOLOGY AND GENOMIC MEDICINE Chloride 99 98 - 112 mEq/L [facility] DEPARTMENT OF PATHOLOGY AND GENOMIC MEDICINE CO2 27 24 - 31 mEq/L [facility] DEPARTMENT OF PATHOLOGY AND GENOMIC MEDICINE Anion gap 15@ANIO 7 - 15 mEq/L [facility] DEPARTMENT OF PATHOLOGY AND GENOMIC MEDICINE BUN 16 8 - 23 mg/dL [facility] DEPARTMENT OF PATHOLOGY AND GENOMIC MEDICINE Creatinine 1.1 0.7 - 1.2 mg/dL [facility] DEPARTMENT OF PATHOLOGY AND GENOMIC MEDICINE Glucose 93 65 - 99 mg/dL [facility] DEPARTMENT OF PATHOLOGY AND GENOMIC MEDICINE Calcium 9.3 8.8 - 10.2 mg/dL [facility] DEPARTMENT OF PATHOLOGY AND GENOMIC MEDICINE Protein 7.6 6.3 - 8.3 g/dL [facility] DEPARTMENT OF Comment: PATHOLOGY AND GENOMIC 4.6-7.0 g/dL MEDICINE 1 week 4.4-7.6 g/dL 7 months-1year5.1-7.3 g/dL 1-2 years5.6-7.5 g/dL >3 years6.0-8.0 g/dL 18-150 6.3-8.3 g/dL Albumin 3.6 3.5 - 5.0 g/dL [facility] DEPARTMENT OF PATHOLOGY AND GENOMIC MEDICINE A/G ratio 0.9 0.7 - 3.8 [facility] DEPARTMENT OF PATHOLOGY AND GENOMIC MEDICINE Alkaline phosphatase 110 40 - 129 U/L [facility] DEPARTMENT OF PATHOLOGY AND GENOMIC MEDICINE AST 21 10 - 50 U/L [facility] DEPARTMENT OF PATHOLOGY AND GENOMIC MEDICINE ALT 25 5 - 50 U/L [facility] DEPARTMENT OF PATHOLOGY AND GENOMIC MEDICINE Total bilirubin 0.3 0.0 - 1.2 mg/dL [facility] DEPARTMENT OF PATHOLOGY AND GENOMIC MEDICINE Specimen Plasma specimen Performing Organization Address City/State/[facility] Phone Number [facility] DEPARTMENT OF PATHOLOGY AND [address] [place] [address] [facility] ECG 12 lead (10/07/2017 4:08 PM CDT) Ventricular rate 70 [facility] MUSE Atrial rate 70 [facility] MUSE ND interval 178 [facility] MUSE QRSD interval 92 [facility] MUSE QT interval 400 [facility] MUSE QTC interval 432 [facility] MUSE P axis 1 63 [facility] MUSE QRS axis 1 61 [facility] MUSE T wave axis 67 [facility] MUSE EKG impression Normal sinus rhythm-Normal ECG-In automated [facility] MUSE comparison with ECG of 16-APR-2017 11:46,-No significant change was found- Performing Organization Address City/[facility] Phone Number [facility] [address] [place] [address] Microscopic Examination (10/07/2017 3:45 PM CDT) WBC, UA 0-5 0 - 5 /hpf [facility] RBC, UA 0-2 0 - 2 /hpf [facility] Epithelial cells (non renal) None seen 0 - 10 /hpf [facility] Mucus, UA Present Not Estab. [facility] Bacteria, UA None seen None seen/Few [facility] Narrative Performed At Performed at:01 - [facility] [place] [facility] [address] [place], [id number] Venue Manager: Lamonte Hamilton MD, Phone:[phone] Performing Organization Address [facility] Phone Number [facility] POC BLADDER SCAN/PVR (10/07/2017 12:12 PM CDT) Volume >200 ml Specimen Urine POC uroflowmetry (10/07/2017 12:12 PM CDT) Flow rate 24 ml/sec Volume 224 ml Specimen Urine after 09/14/2017 Insurance Payer Benefit Plan / Group Subscriber ID Type Phone Address [facility] xxxxxxxxx HMO Advance Directives Patient has advance care planning documents on file. For more information, please contact:[place] [id number] [place] [address]
[2018-09-15] MEDS ORDERED: CLOPIDOGREL 75 MG TABLET ONE (08:59)
[2018-09-15] MEDS ORDERED: HEPARIN 5000 UNIT/ML 1 ML VIAL ONE (09:00)
[2018-09-15] MEDS ORDERED: HEPARIN/D5W 0 UNIT/0 ML BAG IV ONE (09:00)
[2018-09-15] MEDS ORDERED: MORPHINE 4 MG/ML SYR ONE (09:00)
[2018-09-15] MEDS ORDERED: NA CHLORIDE 0.9% 1,000 ML ONE (09:00)
--- NOTE | 2018-09-15 09:04 | ER ---
Nurse's Notes [facility] Name: Guzman Baires Age: 68 yrs Sex: Male : 1950 Arrival Date: 09/15/2018 Time: 08:42 Bed 4 Private MD: John Dunbar E Diagnosis: ST elevation (STEMI) myocardial infarction of inferior wall;Essential (primary) hypertension;Tobacco use Presentation: 09/15 08:46 Presenting complaint: Patient states: Severe CP that radiates down to L arm and upper ss back , dizziness and nausea that began this morning. Transition of care: patient was not received from another setting of care. Onset of symptoms was September 15, 2018. Risk Assessment: Do you want to hurt yourself or someone else? Patient reports no desire to harm self or others. Initial Sepsis Screen: Does the patient meet any 2 criteria? No. Patient's initial sepsis screen is negative. Does the patient have a suspected source of infection? No. Patient's initial sepsis screen is negative. Care prior to arrival: None. 08:46 Method Of Arrival: Wheelchair ss 08:46 Acuity: ARIN 1 ss Triage Assessment: 08:40 General: Appears distressed, uncomfortable, well developed, Behavior is cooperative, sv appropriate for age, anxious. Pain: Complains of pain in chest Pain radiates to back Pain currently is 8 out of 10 on a pain scale. Quality of pain is described as pressure, Pain began 3 days ago but it got worse this morning Is continuous, Noted to be grimacing, guarding, moaning. Neuro: Level of Consciousness is awake, alert, obeys commands, Oriented to person, place, time, situation, Weakness in bilateral leg(s). Cardiovascular: Patient's skin is warm and dry. Pulses are palpable in right radial artery and left radial artery Rhythm is sinus tachycardia. Respiratory: Airway is patent Respiratory effort is even, unlabored, shallow, Respiratory pattern is symmetrical, tachypnea. Derm: Skin is pink, warm \T\ dry. Historical: - Allergies: 08:57 Aleve; sv 08:57 Vicodin; sv - PMHx: 08:57 BPH; chronic neck and back pain; Hypertension; Kidney stones; sv - PSHx: 08:57 Lithotripsy; Green light procedure; sv - Immunization history:: Adult Immunizations unknown. - Social history:: Smoking status: Patient uses tobacco products, smokes one pack cigarettes per day. - Family history:: not pertinent. - Ebola Screening: : Unable to complete screening because pt to cathode builder. Screenin:55 Abuse screen: Denies threats or abuse. Denies injuries from another. Nutritional sv screening: No deficits noted. Tuberculosis screening: No symptoms or risk factors identified. Fall Risk None identified. Assessment: 09:00 Reassessment: No changes from previously documented assessment. Patient and/or family sv updated on plan of care and expected duration. Pain level reassessed. Patient is alert, oriented x 3, equal unlabored respirations, skin warm/dry/pink. Spouse at the bedside. 09:05 Reassessment: brine room laborer nurses at the bedside. sv Vital Signs: 08:39 BP 176 / 91; Pulse 114; Resp 26; Pulse Ox 99% ; Weight 74.8 kg (M); Pain 8/10; sv 09:00 BP 176 / 88; Pulse 99; Resp 24; Pulse Ox 100% on 2 lpm NC; sv 09:03 Temp 98.0; ss ED Course: 08:40 Initial lab(s) drawn, by fl, sent to lab. Inserted saline lock: 18 gauge in right sv antecubital area, using aseptic technique. Blood collected. Flushed right antecubital with 5 ml normal saline. 08:40 Oxygen administration via nasal cannula \T\ 2L/min. sv 08:40 Patient has correct armband on for positive identification. Placed in gown. Bed in low sv position. Call light in reach. monitoring coordinator on. Pulse ox on. NIBP on. Head of bed elevated. 08:40 Arm band placed on Patient placed in an exam room. sv 08:42 Patient arrived in ED. mr 08:42 John Dunbar MD is Private Physician. mr 08:45 Inserted saline lock: 18 gauge in left antecubital area, using aseptic technique. sv Flushed left antecubital with 5 ml normal saline. 08:47 Eric Menon MD is Attending Physician. sammy 08:49 Triage completed. ss 08:54 Saba Sanchez RN is Primary Nurse. sv 09:02 Anamaria Aranda MD is Hospitalizing Provider. sammy 09:14 No provider procedures requiring assistance completed. Patient admitted, IV remains in sv place. intact. Administered Medications: 09:03 Drug: Aspirin 81 mg Route: PO; sv 09:16 Follow up: Response: No adverse reaction sv 09:03 Drug: morphine 4 mg Route: IVP; Site: right antecubital; sv 09:16 Follow up: Response: No adverse reaction sv 09:03 Drug: Zofran 4 mg Route: IVP; Site: right antecubital; sv 09:16 Follow up: Response: No adverse reaction sv 09:03 Drug: Lopressor 5 mg Route: IVP; Site: right antecubital; sv 09:15 Follow up: Response: No adverse reaction sv 09:04 Drug: NS 0.9% 500 ml Route: IV; Rate: bolus; Site: right antecubital; sv 09:15 Follow up: Response: No adverse reaction; IV Status: Infusion continued upon admission sv 09:06 Not Given (Duplicate Order): NS 0.9% 500 ml IV at bolus once ss 09:09 Drug: Pepcid 20 mg Route: IVP; Site: right antecubital; sv 09:15 Follow up: Response: No adverse reaction sv 09:17 Not Given (informed cathode builder nurse pharmacy is bringing it and hasn't been given): sv Effient 60 mg PO once; (loading dose) 09:17 Not Given (given to cathode builder nurse): NS 0.9% 1000 ml IV at 125 ml/hr continuous sv Outcome: 09:03 Decision to Hospitalize by Provider. [facility] 09:13 Admitted to [facility] accompanied by nurse, family with patient, via stretcher, with sv oxygen, on monitor, with chart, Other Bedside report given to cathode builder nurse 09:13 Condition: stable 09:13 Instructed on the need for admit. 09:17 Patient left the ED. sv Signatures: Saba Sanchez, RN RN Eric Segovia MD MD cha Rivera, Mary mr Jihan Mason RN RN ss Corrections: (The following items were deleted from the chart) 09:06 08:55 NS 0.9% 500 ml IV at bolus in right antecubital ss ss 09:15 08:40 Pain: Complains of pain in chest Pain currently is 8 out of 10 on a pain scale. sv Quality of pain is described as pressure, Pain began 3 days ago but it got worse this morning Is continuous, Noted to be grimacing, guarding, moaning, sv
--- NOTE | 2018-09-15 09:04 | EDPHYS ---
Physician Documentation [facility] Name: Guzman Baires Age: 68 yrs Sex: Male : 1950 Arrival Date: 09/15/2018 Time: 08:42 Bed 4 Private MD: John Dunbar E ED Physician Eric Menon HPI: 09/15 08:59 This 68 yrs old Male presents to ER via Wheelchair with complaints of Chest sammy Pain. 08:59 The patient or guardian reports chest pain that is located primarily in the substernal sammy area. Onset: 25 day(s) ago. The pain radiates to the left shoulder. Associated signs and symptoms: Pertinent positives: diaphoresis, nausea, shortness of breath. The chest pain is described as crushing, a pressure. Duration: The patient or guardian reports a single episode, that is still ongoing, and unchanged. Modifying factors: The symptoms are alleviated by nothing. the symptoms are aggravated by nothing. Severity of pain: At its worst the pain was mild in the emergency department the pain is unchanged. Historical: - Allergies: 08:57 Aleve; sv 08:57 Vicodin; sv - PMHx: 08:57 BPH; chronic neck and back pain; Hypertension; Kidney stones; sv - PSHx: 08:57 Lithotripsy; Green light procedure; sv - Immunization history:: Adult Immunizations unknown. - Social history:: Smoking status: Patient uses tobacco products, smokes one pack cigarettes per day. - Family history:: not pertinent. 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 ROS: 08:59 Constitutional: Negative for fever, chills, and weight loss, Eyes: Negative for injury, sammy pain, redness, and discharge, ENT: Negative for injury, pain, and discharge, Neck: Negative for injury, pain, and swelling, Respiratory: Negative for shortness of breath, cough, wheezing, and pleuritic chest pain, Abdomen/GI: Negative for abdominal pain, nausea, vomiting, diarrhea, and constipation, Back: Negative for injury and pain, : Negative for injury, bleeding, discharge, and swelling, MS/Extremity: Negative for injury and deformity, Skin: Negative for injury, rash, and discoloration, Neuro: Negative for headache, weakness, numbness, tingling, and seizure, Psych: Negative for depression, anxiety, suicide ideation, homicidal ideation, and hallucinations, Allergy/Immunology: Negative for hives, rash, and allergies, Endocrine: Negative for neck swelling, polydipsia, polyuria, polyphagia, and marked weight changes, Hematologic/Lymphatic: Negative for swollen nodes, abnormal bleeding, and unusual bruising. 08:59 Cardiovascular: Positive for chest pain, of the chest. Exam: 08:59 Head/Face: Normocephalic, atraumatic. Eyes: Pupils equal round and reactive to light, sammy extra-ocular motions intact. Lids and lashes normal. Conjunctiva and sclera are non-icteric and not injected. Cornea within normal limits. Periorbital areas with no swelling, redness, or edema. ENT: Nares patent. No nasal discharge, no septal abnormalities noted. Tympanic membranes are normal and external auditory canals are clear. Oropharynx with no redness, swelling, or masses, exudates, or evidence of obstruction, uvula midline. Mucous membranes moist. Neck: Trachea midline, no thyromegaly or masses palpated, and no cervical lymphadenopathy. Supple, full range of motion without nuchal rigidity, or vertebral point tenderness. No Meningismus. 08:59 Chest/axilla: Normal chest wall appearance and motion. Nontender with no deformity. No lesions are appreciated. Respiratory: Lungs have equal breath sounds bilaterally, clear to auscultation and percussion. No rales, rhonchi or wheezes noted. No increased work of breathing, no retractions or nasal flaring. Abdomen/GI: Soft, non-tender, with normal bowel sounds. No distension or tympany. No guarding or rebound. No evidence of tenderness throughout. Back: No spinal tenderness. No costovertebral tenderness. Full range of motion. Male : Normal genitalia with no discharge or lesions. Skin: Warm, dry with normal turgor. Normal color with no rashes, no lesions, and no evidence of cellulitis. MS/ Extremity: Pulses equal, no cyanosis. Neurovascular intact. Full, normal range of motion. Neuro: Awake and alert, GCS 15, oriented to person, place, time, and situation. Cranial nerves II-XII grossly intact. Motor strength 5/5 in all extremities. Sensory grossly intact. Cerebellar exam normal. Normal gait. Psych: Awake, alert, with orientation to person, place and time. Behavior, mood, and affect are within normal limits. 08:59 Constitutional: The patient appears in obvious distress, moderately distressed. 08:59 Cardiovascular: Rate: tachycardic, Rhythm: regular, Pulses: Pulses are 4+ in bilateral radial, brachial, femoral, popliteal, posterior tibial and and dorsalis pedis arteries.. Heart sounds: normal, Edema: is not appreciated, JVD: is not appreciated. Vital Signs: 08:39 BP 176 / 91; Pulse 114; Resp 26; Pulse Ox 99% ; Weight 74.8 kg (M); Pain 8/10; sv 09:00 BP 176 / 88; Pulse 99; Resp 24; Pulse Ox 100% on 2 lpm NC; sv 09:03 Temp 98.0; ss MDM: 08:59 Data reviewed: vital signs, nurses notes, lab test result(s), EKG, radiologic studies, [facility] CT scan, plain films. 09:03 Patient medically screened. [facility] 09/15 08:58 Order name: Basic Metabolic Panel 09/15 08:58 Order name: CBC with Diff 09/15 08:58 Order name: LFT's 09/15 08:58 Order name: Magnesium 09/15 08:58 Order name: NT PRO-BNP 09/15 08:58 Order name: PT-INR 09/15 08:58 Order name: Troponin (emerg Dept Use Only) 09/15 08:58 Order name: Lipase 09/15 08:58 Order name: EKG; Complete Time: 08:59 09/15 08:58 Order name: Cardiac monitoring; Complete Time: 08:59 09/15 08:58 Order name: EKG - Nurse/Tech; Complete Time: 08:59 09/15 08:58 Order name: IV Saline Lock; Complete Time: 08:59 09/15 08:58 Order name: Labs collected and sent; Complete Time: 08:59 09/15 08:58 Order name: O2 Per Protocol; Complete Time: 08:59 09/15 08:58 Order name: O2 Sat Monitoring; Complete Time: 08:59 [facility] Administered Medications: 09:03 Drug: Aspirin 81 mg Route: PO; sv 09:16 Follow up: Response: No adverse reaction sv 09:03 Drug: morphine 4 mg Route: IVP; Site: right antecubital; sv 09:16 Follow up: Response: No adverse reaction sv 09:03 Drug: Zofran 4 mg Route: IVP; Site: right antecubital; sv 09:16 Follow up: Response: No adverse reaction sv 09:03 Drug: Lopressor 5 mg Route: IVP; Site: right antecubital; sv 09:15 Follow up: Response: No adverse reaction sv 09:04 Drug: NS 0.9% 500 ml Route: IV; Rate: bolus; Site: right antecubital; sv 09:15 Follow up: Response: No adverse reaction; IV Status: Infusion continued upon admission sv 09:06 Not Given (Duplicate Order): NS 0.9% 500 ml IV at bolus once ss 09:09 Drug: Pepcid 20 mg Route: IVP; Site: right antecubital; sv 09:15 Follow up: Response: No adverse reaction sv 09:17 Not Given (informed clinical laboratory medical director nurse pharmacy is bringing it and hasn't been given): sv Effient 60 mg PO once; (loading dose) 09:17 Not Given (given to clinical laboratory medical director nurse): NS 0.9% 1000 ml IV at 125 ml/hr continuous sv Disposition: 09/15/18 09:03 Hospitalization ordered by Anamaria Aranda for Inpatient Admission. Preliminary diagnosis are ST elevation (STEMI) myocardial infarction of inferior wall, Essential (primary) hypertension, Tobacco use. 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 - Status is Inpatient Admission. sv - Condition is Critical. - Problem is new. - Symptoms are unchanged. UTI on Admission? No Signatures: Dispatcher [employer] Saba Rodriguez RN RN Eric Segovia MD MD cha Smirch, Shelby, RN RN ss Corrections: (The following items were deleted from the chart) 09:17 09:03 Hospitalization Ordered by Anamaria Aranda MD for Inpatient Admission. Preliminary sv diagnosis is ST elevation (STEMI) myocardial infarction of inferior wall; Essential (primary) hypertension; Tobacco use. 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 Status is Inpatient Admission. Condition is Critical. Problem is new. Symptoms are unchanged. UTI on Admission? No. sammy
[2018-09-15] MEDS ORDERED: LIDOCAINE 1% 20 ML MDV ONE (09:05)
[2018-09-15] MEDS ORDERED: HEPA 1000U/500MLS 2,000 UNIT/1,000 ML BAG IV ONE (09:05)
[2018-09-15] MEDS ORDERED: TENECTEPLASE 50 MG/10 ML VIAL IV ONE (09:06)
[2018-09-15] MEDS ORDERED: PRASUGREL (EFFIENT) 10 MG TAB PO ONE (09:10)
[2018-09-15] MEDS ORDERED: ASPIRIN 81 MG CHEWABLE TABLET ONE (09:11)
[2018-09-15] MEDS ORDERED: METOPROLOL TARTRATE 5 MG/5 ML INJ IV ONE (09:12)
[2018-09-15] MEDS ORDERED: FAMOTIDINE 20 MG/2 ML VIAL IV ONE (09:17)
[2018-09-15 09:20] LABS: Absolute Lymphocytes (CBC) 4.8 K/uL (0.7-4.9); Absolute Neutrophil 5.6 K/uL (1.8-8.0); Basophils % 0.4 % (0-1.3); Eosinophils % 1.1 % (0-4.4); Hematocrit 54.3 % (39.6-49.0); Lymphocytes % 41.1 % (15.3-44.8); MPV 8.2 fL (7.6-11.3); Protime INR 0.99; RBC Red Blood Cell Count 5.95 M/uL (4.33-5.43)
[2018-09-15 09:27] LABS: Albumin 3.9 g/dL (3.4-5.0); Bilirubin Direct 0.2 mg/dL (0-0.2); Bilirubin Total 0.6 mg/dL (0.2-1.0); Potassium 3.3 mmol/L (3.5-5.1); Protein, Total 8.2 g/dL (6.4-8.2); Troponin (Emerg Dept Use Only) 0.06 ng/mL (0.0-0.045)
[2018-09-15] MEDS ORDERED: ATROPINE SULF 1 MG/10 ML SYR IV ONE ×2 (09:31→09:59)
[2018-09-15] MEDS ORDERED: MIDAZOLAM HCL 2 MG/2 ML INJ ONE (09:31)
[2018-09-15] MEDS ORDERED: NA CHLORIDE 0.9% 50 ML ONE (09:31)
[2018-09-15] MEDS ORDERED: FENTANYL CITR 100 MCG/2 ML ONE (09:31)
[2018-09-15] MEDS ORDERED: PRASUGREL (EFFIENT) 10 MG TAB ONE (09:36)
[2018-09-15] MEDS ORDERED: NITROGLYCERIN 100 MCG/ML SYR (for cath lab use only) IV ONE (09:51)
--- NOTE | 2018-09-15 12:11 | CON ---
Chief Complaint: Chest pain. Reason For Consult: Acute inferior CT. History Of Present Illness: Mr. Baires is 68 years old. Enjoys good health. He takes medicines fo r dyslipidemia, hypertension. He never had myocardial infarction or stroke. He uses some tobacco. This morning about 6 a.m., he started having chest pain. He arrived to our emergency room right abou t 7 a.m., and I was called about 8:50 a.m. The patient has no previous history of cardiac cath, no m yocardial infarction, stroke, or stents. Allergies: HE IS ALLERGIC TO ACETAMINOPHEN, HYDROCODONE, AND NAPROXEN. Physical Examination: General: Very nervous, very anxious, quite a bit of distress. Lot of central chest pain. Lungs: Do not reveal wheezes or crackles. Heart: Heart rate of 102, it has come down to mid 90s with 5 mg of Lopressor, very shaky hands. Extremities: Palpable distal pulses. Laboratory Data: EKG; inferior injury pattern, reciprocal ST depression in the anterior precordial l danae. I think it is probably a true posterior CT or RV involvement. Impression: He needs to go emergently to the cardiac laboratory aide. We will give him Lopressor, aspirin, Effient, and take him immediately to the laboratory aide. He and his seem to understand the procedure, potential benefits, indications, ris ks, and agreed to proceed. JUANY Voice ID: [id number] Report ID: [id number]
[2018-09-15 12:32] LABS: Hematocrit 47.6 % (39.6-49.0); MPV 7.9 fL (7.6-11.3); RBC Red Blood Cell Count 5.19 M/uL (4.33-5.43)
[2018-09-15 12:34] VITALS: BMI 26.1
--- NOTE | 2018-09-15 14:11 | ECHO ---
HEIGHT: 5 ft 8 in WEIGHT: 171 lb 11.2 oz DATE OF STUDY: 09/15/[address]: Donny Bolton MD 2-DIMENSIONAL: YES M.MODE: YES DOPPLER: YES COLOR FLOW: YES TDS: NO PORTABLE: YES DEFINITY: NO BUBBLE STUDY: NO DIAGNOSIS: MYOCARDIAL INFARCTION CARDIAC HISTORY: CATHERIZATION: YES SURGERY: NO PROSTHETIC VALVE: NO PACEMAKER: NO MEASUREMENTS (cm) DIASTOLIC (NORMALS) SYSTOLIC (NORMALS) IVSd 1.0 (0.6-1.2) LA Diam 3.3 (1.9-4.0) LVEF 52% LVIDd 3.3 (3.5-5.7) LVIDs 2.5 (2.0-3.5) %FS 26% LVPWd 1.1 (0.6-1.2) Ao Diam 2.7 (2.0-3.7) 2 DIMENSIONAL ASSESSMENT: RIGHT ATRIUM: NORMAL LEFT ATRIUM: NORMAL RIGHT VENTRICLE: NORMAL LEFT VENTRICLE: NORMAL TRICUSPID VALVE: NORMAL MITRAL VALVE: NORMAL PULMONIC VALVE: NORMAL AORTIC VALVE: NORMAL PERICARDIAL EFFUSION: NONE AORTIC ROOT: NORMAL LEFT VENTRICULAR WALL MOTION: NORMAL DOPPLER/COLOR FLOW: NORMAL COMMENTS: NORMAL 2D ECHOCARDIOGRAM WITH DOPPLER. TECHNOLOGIST: Nury DAY
[2018-09-15] MEDS: METOPROLOL XL 50 MG TAB PO SCH (18:53)
[2018-09-15] MEDS: TAMSULOSIN 0.4 MG SR CAP PO SCH ×2 (21:00→21:02)
[2018-09-15] MEDS: ATORVASTATIN 80 MG TAB PO SCH (21:02)
--- NOTE | 2018-09-15 21:31 | OP ---
Surgeon: Donny Bolton MD A 68-year-old man. Procedure: Coronary angiogram, percutaneous coronary intervention, totally occluded right coronary a rtery, ST-elevation myocardial infarction, acute inferior myocardial infarction. Procedure Findings: The patient's right coronary artery was 100% occluded, very little collateral fl ow from distal. No forward flow. His left coronary had moderate plaque, LAD and circumflex; the lef t main was free of any significant disease. Left ventriculogram was not done. After an intervention , the 100% occluded right coronary artery had 0% stenosis MICHELLE-3 antegrade flow. Procedure In Detail: The patient was brought to the cardiac supervisor laboratory animal facility for an acute SC. He was not fa sting. He had been pretreated with intravenous Lopressor, 81 mg of aspirin and 60 mg of Effient. He was prepared and draped in the usual sterile fashion, given Versed and fentanyl for sedation. Right femoral artery was used. Tissues around the right artery were anesthetized with 1% lidocaine, enter ed with an 18-gauge needle, cannulated with a J-wire, 6-[place]i sheath was placed. Angiomax was given . Activated clotting time demonstrated to be over 300. We angiogrammed the left coronary with a 6-F rench JL4, right coronary with a 3DRC. We used a 3DRC 6-[place]i guide, crossed the lesion with a wire loaded into a 2.5 x 20 Emerge balloon. We dilated the lesion 3 times. There was a significant resi dual stenosis. The patient had a reaction of reperfusion bradycardia and hypotension treated with at ropine and a bolus of normal saline. We stented the artery with a 3.0 x 16 Synergy stent, inflated t o 10 atmospheres. Excellent angiographic result. No stenosis. No residual flap. MICHELLE grade 3 flow. There was a complete absence of the so called "no-reflow phenomenon". DIMITRI/AAMIR Voice ID: [id number] Report ID: [id number]
--- NOTE | 2018-09-16 04:33 | HP ---
Date of Admission: 09/15/2018 Chief Complaint: Chest pain started early in the morning. History Of Present Illness: The patient is a 68-year-old man with past medical history of BPH and hy pertension, presented to the emergency room with chest pain that was started earlier in the morning a round 7 a.m. and EKG showed inferior wall CO. Cardiology was called in ER and the patient was taken for cardiac cath. The patient described the pain as pressing pressure-like pain associated with diaphoresis, nausea, an d shortness of breath, but no vomiting. The patient denied headache, change in urinary or bowel habits, dysuria, dizziness, or any other comp laints. Allergies: THE PATIENT IS ALLERGIC TO ALEVE AND VICODIN. Past Medical History: Chronic neck and back pain, hypertension, and kidney stones. Past Surgical History: Lithotripsy. Social History: The patient is an active smoker, he smokes one pack per day. Denied drinking or ill icit drug use. Review of Systems: CONSTITUTIONAL: Negative for fever, chills, or weight loss. EYES: Negative for injury, pain, or redness. ENT: Negative for pain or discharge. RESPIRATORY: Negative for wheezing, cough, or pleuritic chest pain. ABDOMEN/GI: Negative for abdominal pain, nausea, vomiting, diarrhea, or constipation. BACK: Negative for injury or pain. : Negative for injury, bleeding, discharge, or swelling. NEUROLOGICAL: Negative for headache, weakness, numbness, tingling, seizures. PSYCHIATRIC: Negative for hallucination, depression, or suicidal ideation. ENDOCRINE: Negative for leg swelling, polydipsia, polyuria, or polyphagia. HEMATOLOGY: Negative for abnormal bleeding or unusual bruising. CARDIOVASCULAR: Positive for chest pain. Physical Examination: GENERAL: Alert, awake, and oriented x3. HEENT: Atraumatic. PERRLA. Mucous membrane moist. EOMIs. Sclerae nonicteric. NECK: Supple. No bruit. No LAD. Without JVD or thyroid abnormality. RESPIRATORY: Clear to auscultation. No wheezing or crackles. CARDIOVASCULAR: Normal S1 and S2. Nonlabored. GI: Normal bowel sounds. Soft and nontender. MUSCULOSKELETAL: No swelling, tenderness, or edema. SKIN: No rash. NEUROLOGICAL: No focal weakness. Laboratory Data: Reviewed. Diagnostic Data: EKG showed inferior wall CO. Assessment And Plan: Inferior wall myocardial infarction. The patient will have cardiac cath, Cardiology consulted stat. Aspirin. Atorvastatin. Plavix. Metoprolol 50 mg p.o. b.i.d. PPI. Losartan. Continue other home medications for other comorbidities. DVT prophylaxis. The patient will be admitted to ICU after cardiac cath. DONNA Voice ID: [id number]
[2018-09-16 05:22] LABS: Absolute Lymphocytes (CBC) 3.2 K/uL (0.7-4.9); Absolute Monocytes 1.3 K/uL (0.1-1.3); Absolute Neutrophil 7.9 K/uL (1.8-8.0); Basophils % 0.3 % (0-1.3); Hematocrit 47.2 % (39.6-49.0); Lymphocytes % 25.5 % (15.3-44.8); MPV 8.1 fL (7.6-11.3); Monocytes % 10.4 % (3.3-12.3); RBC Red Blood Cell Count 5.18 M/uL (4.33-5.43)
[2018-09-16 05:38] LABS: Albumin 3.2 g/dL (3.4-5.0); Bilirubin Total 0.9 mg/dL (0.2-1.0); Potassium 3.3 mmol/L (3.5-5.1); Protein, Total 6.9 g/dL (6.4-8.2)
[2018-09-16] MEDS: METOPROLOL XL 50 MG TAB PO SCH (06:14)
[2018-09-16] MEDS: PANTOPRAZOLE 40MG TABLET PO SCH (06:14)
[2018-09-16] MEDS: AMLODIPINE 10 MG TAB PO SCH (08:51)
[2018-09-16] MEDS: CLOPIDOGREL 75 MG TABLET PO SCH (08:52)
[2018-09-16] MEDS: ASPIRIN EC 81 MG TAB PO SCH (08:52)
[2018-09-16] MEDS: LOSARTAN POTASSIUM 50 MG TABLET PO SCH (08:52)
[2018-09-16 09:29] LABS: Hematocrit 49.2 % (39.6-49.0); MPV 8.1 fL (7.6-11.3); RBC Red Blood Cell Count 5.42 M/uL (4.33-5.43)
--- NOTE | 2018-09-16 13:48 | PN ---
Mr. Baires's femoral puncture site looks very good. No evidence of hematoma or retroperitoneal hemo rrhage or pseudoaneurysm. He is feeling well. His EKG returned to complete normal. Echocardiogram does not show any wall motion abnormalities, so he probably came in early enough that there was minim al damage. Troponins have not been followed. We should probably get a troponin level, and that we c an get him out of intensive care, let him walk around some, and he can probably be discharged home to [place]. JUANY Voice ID: [id number] Report ID: [id number]
--- NOTE | 2018-09-16 17:26 | P.PN ---
Subjective Date of Service: 09/16/18 no overnight events no CP ,SOB or palpitation no hematoma at the site of the cath pt will be transferred to tthe floor Review of Systems 10-point ROS is otherwise unremarkable Physical Examination - Vital Signs Temperature: 98.6 F Blood Pressure: 131/63 Pulse: 78 Respirations: 22 Pulse Ox (%): 95 - Physical Exam General: Alert, Oriented x3 HEENT: Atraumatic, Normocephalic, PERRLA Neck: JVD not distended Respiratory: Clear to auscultation bilaterally, Normal air movement Cardiovascular: No edema, Regular rate/rhythm, Normal S1 S2 Gastrointestinal: Normal bowel sounds, Soft and benign, Non-distended Musculoskeletal: No clubbing, No swelling Integumentary: No rashes Neurological: Normal speech, Normal strength at 5/5 x4 extr Assessment And Plan - Current Problems (Diagnosis) (1) Acute OH, inferior wall Current Visit: Yes Status: Acute (2) Chest pain Onset Date: 07/27/16 Current Visit: No Status: Acute Qualifiers: (3) BPH (benign prostatic hyperplasia) Current Visit: No Status: Chronic (4) Hypertension Onset Date: 07/27/16 Current Visit: No Status: Chronic Qualifiers: - Plan Inferior wall myocardial infarction. s/p cardiac cath with right coronary artery 100% occlusion ,s/p stent Aspirin. Atorvastatin. Plavix. Metoprolol 50 mg p.o. b.i.d. PPI. Losartan. Continue other home medications for other comorbidities. DVT prophylaxis. Discharge Plan: Home Plan to discharge in: 24 Hours
[2018-09-16] MEDS: METOPROLOL XL 100 MG TAB PO SCH (18:19)
[2018-09-16] MEDS: TAMSULOSIN 0.4 MG SR CAP PO SCH (20:10)
[2018-09-16] MEDS: ATORVASTATIN 80 MG TAB PO SCH (20:10)
[2018-09-17 05:28] LABS: Absolute Lymphocytes (CBC) 2.8 K/uL (0.7-4.9); Absolute Monocytes 1.6 K/uL (0.1-1.3); Absolute Neutrophil 6.4 K/uL (1.8-8.0); Basophils % 0.2 % (0-1.3); Eosinophils % 1.6 % (0-4.4); Hematocrit 45.5 % (39.6-49.0); Lymphocytes % 25.2 % (15.3-44.8); MPV 8.1 fL (7.6-11.3); Monocytes % 14.8 % (3.3-12.3); RBC Red Blood Cell Count 5.04 M/uL (4.33-5.43)
[2018-09-17 05:46] LABS: Bilirubin Total 0.8 mg/dL (0.2-1.0); Potassium 3.4 mmol/L (3.5-5.1); Protein, Total 6.6 g/dL (6.4-8.2); Troponin I 3.27 ng/mL (0.0-0.045)
[2018-09-17] MEDS: PANTOPRAZOLE 40MG TABLET PO SCH (05:53)
[2018-09-17] MEDS: METOPROLOL XL 100 MG TAB PO SCH (05:53)
[2018-09-17 07:02] VITALS: TEMP 98.2
[2018-09-17 07:49] VITALS: O2SAT 95
[2018-09-17] MEDS: CLOPIDOGREL 75 MG TABLET PO SCH (08:42)
[2018-09-17] MEDS: ASPIRIN EC 81 MG TAB PO SCH (08:42)
[2018-09-17] MEDS: AMLODIPINE 10 MG TAB PO SCH (08:43)
[2018-09-17] MEDS: LOSARTAN POTASSIUM 50 MG TABLET PO SCH (08:43)
[2018-09-17 10:13] VITALS: BP 138/61
--- NOTE | 2018-09-17 12:51 | P.DS ---
Admission Date: 09/15/18 Discharge Date: 09/17/18 Primary Care Provider: Dr. Dunbar Disposition: ROUTINE DISCHARGE Discharge Condition: GOOD Reason for Admission: Chest pain Consultations: Cardiology-Dr. Bolton Procedures: Echocardiogram: Ejection fraction 52%. Otherwise unremarkable. Heart Cath: Procedure: Coronary angiogram, percutaneous coronary intervention, totally occluded right coronary artery, ST-elevation myocardial infarction, acute inferior myocardial infarction. Procedure Findings: The patient's right coronary artery was 100% occluded, very little collateral flow from distal. No forward flow. His left coronary had moderate plaque, LAD and circumflex; the left main was free of any significant disease. Left ventriculogram was not done. After an intervention, the 100% occluded right coronary artery had 0% stenosis MICHELLE-3 antegrade flow. Procedure In Detail: The patient was brought to the cardiac gold leaf laborer for an acute FL. Status post right Coronary artery stent placement Medical problem list: Acute ST-elevation FL status post heart catheterization showing 100% occlusion of right RCA status post stent. His left Coronary evaluation showed moderate plaque to the LAD and circumflex. The left main was free of any significant disease. Hypertension Hyperlipidemia Tobacco abuse GERD BPH Brief History of Present Illness: 68 yo CM presented with chest pain. He was found to have an acute FL. He was admitted for treatment. Hospital Course: Patient presented with acute ST-elevation FL. Patient had heart catheterization showing 100% stenosis of the RCA. Moderate plaque noted to the left Coronary artery. Stent placed to the RCA with good outcome. Patient tolerated procedure well. Patient at discharge without any chest pain. Patient cleared by cardiology for discharge. Patient will continue with current medications including aspirin 81 mg daily, Plavix 75 mg daily, Norvasc 10 mg daily, Cozaar 50 mg daily, Toprol-XL 100 mg 1 pill twice daily, and Lipitor 80 mg daily. Recommend to follow up with cardiology in 1-2 weeks to follow up this hospitalization. Patient has hypertension. Medications have been adjusted. Patient will no longer take hydrochlorothiazide. Patient will continue with Norvasc 10 mg daily , Cozaar 50 mg daily, and Toprol-XL 100 mg 1 pill twice daily. Further adjustment in medication can be done by his PCP or cardiology. He is to monitors blood pressures daily. Patient has hyperlipidemia. Patient will continue with Lipitor 80 mg daily. Patient with tobacco abuse. Tobacco cessation addressed in detail. Patient has GERD. Patient will continue with Protonix 40 mg daily. Patient with BPH. Patient will continue Flomax 0.4 Vital Signs/Physical Exam: Temp Pulse Resp BP Pulse Ox 98.2 F 65 24 H 138/61 96 09/17/18 08:00 09/17/18 10:00 09/17/18 10:00 09/17/18 10:00 09/17/18 10:00 General: Alert, In no apparent distress, Oriented x3, Cooperative HEENT: Atraumatic Neck: Supple Respiratory: Clear to auscultation bilaterally, Normal air movement Cardiovascular: Normal pulses, Regular rate/rhythm Gastrointestinal: Normal bowel sounds, Soft and benign, Non-distended, No tenderness, No masses, No rebound, No guarding Musculoskeletal: No erythema, No tenderness, No warmth Integumentary: No tenderness/swelling, No erythema, No warmth, No cyanosis Neurological: Normal speech, Normal strength at 5/5 x4 extr, Normal tone, Normal affect Laboratory Data at Discharge: WBC 10.9 K/uL (4.3-10.9) 09/17/18 04:40 Hgb 15.5 g/dL (13.6-17.9) 09/17/18 04:40 Hct 45.5 % (39.6-49.0) 09/17/18 04:40 Plt Count 257 K/uL (152-406) 09/17/18 04:40 PT 11.7 SECONDS (9.5-12.5) 09/15/18 08:40 INR 0.99 09/15/18 08:40 Sodium 139 mmol/L (136-145) 09/17/18 04:40 Potassium 3.4 mmol/L (3.5-5.1) L 09/17/18 04:40 BUN 18 mg/dL (7-18) 09/17/18 04:40 Creatinine 1.03 mg/dL (0.55-1.3) 09/17/18 04:40 Glucose 100 mg/dL (74-106) 09/17/18 04:40 Magnesium 2.0 mg/dL (1.8-2.4) 09/15/18 08:40 Total Bilirubin 0.8 mg/dL (0.2-1.0) 09/17/18 04:40 AST 26 U/L (15-37) 09/17/18 04:40 ALT 26 U/L (12-78) 09/17/18 04:40 Alkaline Phosphatase 99 U/L (45-117) 09/17/18 04:40 Troponin I 3.27 ng/mL (0.0-0.045) H* 09/17/18 04:40 Triglycerides 123 mg/dL (<150) 09/16/18 04:49 Cholesterol 126 mg/dL (<200) 09/16/18 04:49 HDL Cholesterol 39 mg/dL (40-60) L 09/16/18 04:49 Cholesterol/HDL Ratio 3.23 09/16/18 04:49 Lipase 211 U/L (73-393) 09/15/18 08:40 Home Medications: Amlodipine Besylate [Norvasc] 10 mg PO DAILY 07/27/16 Aspirin [Aspirin EC 81 MG] 81 mg PO DAILY #90 tablet. 07/27/16 Metoprolol Tartrate [Lopressor*] 50 mg PO BID #60 tab 07/27/16 Tamsulosin [Flomax] 2 cap PO DAILY 09/15/18 Amlodipine [Norvasc*] 10 mg PO DAILY #30 tab 09/17/18 Aspirin [Aspirin EC 81 MG] 81 mg PO DAILY #90 tablet. 09/17/18 Atorvastatin Calcium [Lipitor] 80 mg PO BEDTIME #30 tab 09/17/18 Clopidogrel Bisulfate [Plavix*] 75 mg PO DAILY #30 tablet 09/17/18 Losartan Potassium [Cozaar*] 50 mg PO DAILY #30 tablet 09/17/18 Metoprolol Succinate [Toprol Xl*] 100 mg PO BID 6AM 6PM #60 tab 09/17/18 Pantoprazole [Protonix Tab*] 40 mg PO DAILYAC #30 tab 09/17/18 Tamsulosin [Flomax*] 0.4 mg PO BEDTIME #30 cap 09/17/18 New Medications: Amlodipine [Norvasc*] 10 mg PO DAILY #30 tab Aspirin [Aspirin EC 81 MG] 81 mg PO DAILY #90 tablet. Atorvastatin Calcium [Lipitor] 80 mg PO BEDTIME #30 tab Clopidogrel Bisulfate [Plavix*] 75 mg PO DAILY #30 tablet Losartan Potassium [Cozaar*] 50 mg PO DAILY #30 tablet Metoprolol Succinate [Toprol Xl*] 100 mg PO BID 6AM 6PM #60 tab Pantoprazole [Protonix Tab*] 40 mg PO DAILYAC #30 tab Tamsulosin [Flomax*] 0.4 mg PO BEDTIME #30 cap Patient Discharge Instructions: 1. Patient will follow up with his PCP-Dr. Dnubar within 1 week to follow up this hospitalization. 2. Patient presented with acute FL. Patient had heart catheterization with stent placed to the RCA. Patient tolerated procedure well. Patient will continue with current medications including aspirin 81 mg daily, Plavix 75 mg daily, Norvasc 10 mg daily, Cozaar 50 mg daily, Toprol-XL 100 mg 1 pill twice daily, and Lipitor 80 mg daily. Recommend to follow up with cardiology in 1-2 weeks to follow up this hospitalization. 3. Patient has hypertension. Medications have been adjusted. Patient will no longer take hydrochlorothiazide. Patient will continue with Norvasc 10 mg daily, Cozaar 50 mg daily, and Toprol-XL 100 mg 1 pill twice daily. Further adjustment in medication can be done by his PCP or cardiology. He is to monitors blood pressures daily. 4. Patient has hyperlipidemia. Patient will continue with Lipitor 80 mg daily. 5. Patient with tobacco abuse. Tobacco cessation addressed in detail. 6. Patient has BPH. Patient will continue with Flomax 0.4 mg daily. 7. Patient has GERD. Patient will continue with Protonix 40 mg daily. Diet: AHA Activity: Ad marilou Followup: Donny Bolton MD [ACTIVE - CAN ADMIT] - Time spent managing pt's care (in minutes): 55
--- NOTE | 2018-09-23 11:00 | EKG ---
Test Date: 2018-09-15 Test Time: 08:44:08 Linux Solaris Administrator: DIANNA MEASUREMENT RESULTS: Intervals: Rate: 117 KS: 170 QRSD: 82 QT: 304 QTc: 424 [place]: P: 58 KS: 170 QRS: 80 T: 86 INTERPRETIVE STATEMENTS: Sinus tachycardia ST elevation, consider inferior injury or acute infarct ACUTE IN Consider right ventricular involvement in acute inferior infarct Abnormal ECG Compared to ECG 07/27/2016 04:16:39 ST (T wave) deviation now present Myocardial infarct finding now present Myocardial infarct finding now present Sinus rhythm no longer present Electronically Signed On 09-15-18 12:01:03 CDT by Donny Bolton
--- NOTE | 2018-09-23 11:02 | EKG ---
Test Date: 2018-09-15 Test Time: 13:32:16 Manager Database: JANETTE MEASUREMENT RESULTS: Intervals: Rate: 70 AR: 172 QRSD: 84 QT: 392 QTc: 423 [place]: P: 58 AR: 172 QRS: -24 T: 64 INTERPRETIVE STATEMENTS: Normal sinus rhythm Normal ECG Compared to ECG 09/15/2018 08:44:08 Sinus tachycardia no longer present ST (T wave) deviation no longer present Myocardial infarct finding no longer present Myocardial infarct finding no longer present Electronically Signed On 09-15-18 13:48:01 CDT by Donny Bolton
--- NOTE | 2018-09-23 11:05 | EKG ---
Test Date: 2018-09-16 Test Time: 07:23:44 Applications Development Analyst: DESHAWN MEASUREMENT RESULTS: Intervals: Rate: 71 MO: 184 QRSD: 92 QT: 392 QTc: 425 [place]: P: 59 MO: 184 QRS: -19 T: -24 INTERPRETIVE STATEMENTS: Normal sinus rhythm Normal ECG Compared to ECG 09/15/2018 13:32:16 No significant changes Electronically Signed On 09-16-18 09:02:03 CDT by Donny Bolton
--- NOTE | 2018-09-23 11:13 | EKG ---
Test Date: 2018-09-17 Test Time: 07:35:49 Neuropsychology Director: VARUN MEASUREMENT RESULTS: Intervals: Rate: 70 AR: 184 QRSD: 90 QT: 406 QTc: 438 [place]: P: 70 AR: 184 QRS: -40 T: -47 INTERPRETIVE STATEMENTS: Normal sinus rhythm Left axis deviation Nonspecific ST abnormality Abnormal ECG Compared to ECG 09/16/2018 07:23:44 Left-axis deviation now present ST (T wave) deviation now present Electronically Signed On 09-17-18 10:50:34 CDT by Donny Bolton
== END 2018-09-17 10:43 | disposition home or self-care (01) | DRG 247 ==
LOC: ER 08:40 → 3RD-ICU 10:11
PROVIDERS: ADMIT Internal Medicine; ATTEND Family Medicine
PROC: 027034Z Dilation of Coronary Artery, One Artery with Drug-eluting Intraluminal Device, Percutaneous Approach (ICD-10-PCS; principal; 2018-09-15)
PROC: 4A023N7 Measurement of Cardiac Sampling and Pressure, Left Heart, Percutaneous Approach (ICD-10-PCS; 2018-09-15)
PROC: B211YZZ Fluoroscopy of Multiple Coronary Arteries using Other Contrast (ICD-10-PCS; 2018-09-15)
DX: I21.19 ST elevation (STEMI) myocardial infarction involving other coronary artery of inferior wall (principal); I25.10 Atherosclerotic heart disease of native coronary artery without angina pectoris; I25.82 Chronic total occlusion of coronary artery; I11.9 Hypertensive heart disease without heart failure; F17.210 Nicotine dependence, cigarettes, uncomplicated; E78.5 Hyperlipidemia, unspecified; K21.9 Gastro-esophageal reflux disease without esophagitis; N40.0 Benign prostatic hyperplasia without lower urinary tract symptoms
CPT/HCPCS: 36415; 80048; 80053; 80061; 80076; 83690; 83735; 83880; 84484; 85025; 85027; 85347; 85610; 93005; 93306; 93454; 96374; 96375; 99285; C1725; C1760; C1893; C9600; J0583; J1644; J2250; J3010; J3101; J7030

== ENCOUNTER 2019-01-22 10:10 | Emergency (ER) | payer OTHER ==
--- OUTSIDE RECORDS SUMMARY | 2019-01-22 10:13 | XMS REPORT | Clinical Summary ---
:1950 Author Organization [facility] Address [address] [place] [address] Care Team Providers Name Role Phone John Dunbar MD Primary Care Provider Allergies Active Allergy Reactions Severity Noted Date Comments Naproxen Sodium Shortness Of Breath High 03/06/2017 Hives, palpitations Hydrocodone-Acetaminophen Shortness Of Breath High 03/06/2017 Hives, palpitations Medications Medication Sig Dispensed Refills Start End Date Status Date diazePAM (VALIUM) 5 MG Take 5 mg by 0 Active tablet mouth as needed for anxiety. aspirin (ECOTRIN) 81 MG Take 81 mg 0 Active enteric coated tablet by mouth every morning. phenazopyridine Take 1 50 tablet 0 Active (PYRIDIUM) 100 MG tablet (100 8 tablet mg total) by mouth 3 (three) times a day as needed for bladder spasms. tamsulosin (FLOMAX) 0.4 Take 2 180 capsule 3 Active mg capsuleIndications: capsules 8 BPH with (0.8 mg obstruction/lower total) by urinary tract symptoms mouth daily. amLODIPine (NORVASC) 10 Take 1 90 tablet 3 Active mg tablet tablet (10 9 mg total) by mouth daily. hydroCHLOROthiazide TAKE 1 90 tablet 3 Active (HYDRODIURIL) 25 MG TABLET BY 9 tablet MOUTH ONCE DAILY atorvastatin (LIPITOR) Patient 90 tablet 4 Active 80 MG tablet taking half 9 tablet daily metoprolol tartrate Take 1 180 tablet 3 04/16/20 (LOPRESSOR) 100 mg tablet (100 7 18 tablet mg total) by mouth 2 (two) times a day. atorvastatin (LIPITOR) Take 0.5 90 tablet 3 07/30/19 Discontinued 80 MG tablet tablets (40 7 19 mg total) by mouth daily. hydroCHLOROthiazide Take 1 90 tablet 3 08/31/19 Discontinued (HYDRODIURIL) 25 MG tablet (25 8 19 tablet mg total) by mouth daily. amLODIPine (NORVASC) 5 Take 5 mg by 0 05/14/20 Discontinued mg tablet mouth every 18 morning. tamsulosin (FLOMAX) 0.4 Take 1 90 capsule 3 02/12/20 Discontinued mg capsule,extended capsule (0.4 8 18 release mg total) by 24hrIndications: BPH mouth daily. with obstruction/lower urinary tract symptoms amLODIPine (NORVASC) 5 Take 1 90 tablet 0 06/24/19 Discontinued mg tablet tablet (5 mg 8 19 total) by mouth every morning. atorvastatin (LIPITOR) Take 80 mg 0 08/06/19 Discontinued 80 MG tablet by mouth 19 daily. Patient taking half tablet(40mg) daily atorvastatin (LIPITOR) TAKE 1/2 90 tablet 0 08/06/19 Discontinued 80 MG tablet TABLET BY 9 19 MOUTH EVERY DAY atorvastatin (LIPITOR) Take 1 90 tablet 4 09/16/19 Discontinued 80 MG tablet tablet (80 9 19 mg total) by mouth daily. Patient taking half tablet(40mg) daily Active Problems Problem Noted Date Cervical spondylosis [...] Encounters Date Type Specialty Care Team Description 09/15/2018 Refill Cardiology Consuelo Whipple MA Med Refill 09/13/2018 Refill Cardiology Slade June Med Refill 09/12/2018 Telephone Cardiology Penelope Gilmore clarification Lipitor dose RN 09/12/2018 Refill Cardiology Penelope Gilmore Med Refill RN 08/30/2018 Refill Cardiology Slade June, Med Refill 08/06/2018 Refill Cardiology Penelope Gilmore Med Refill RN 07/30/2018 Refill Cardiology Slade June, Med Refill 06/27/2018 Telephone Cardiology Consuelo Whipple MA Result - Labs 06/24/2018 Lab Lab Slade June, Hyperlipidemia, unspecified hyperlipidemia type 06/24/2018 Office Visit Cardiology Slade June, Essential hypertension (Primary Dx); Hyperlipidemia, unspecified hyperlipidemia type 05/14/2018 Refill Cardiology Penelope Gilmore Med Refill RN 03/27/2018 Hospital Encounter Radiology 02/19/2018 Telephone Urology Deborah Jones MD 02/08/2018 Telephone Urology Deborah Jones MD BPH with obstruction/lower urinary tract symptoms 01/28/2018 Telephone Urology Jackeline Julian MA after 01/21/2018 Family History Medical History Relation Name Comments [...] Taken Blood Pressure 167/77 06/24/2018 1:39 PM [employer]BE[employer]ATEMENT WORKER Pulse 83 06/24/2018 1:39 PM [employer]BE[employer]ATEMENT WORKER Temperature - - Respiratory Rate - - Oxygen Saturation - - Inhaled Oxygen Concentration - - Weight 78 kg (172 lb) 06/24/2018 1:39 PM [employer]ATEMENT WORKER Height 172.7 cm (5' 8") 06/24/2018 1:39 PM [employer]ATEMENT WORKER Body Mass Index 26.15 06/24/2018 1:39 PM [employer]ATEMENT WORKER Plan of Treatment Health Maintenance Due Date Last Done Comments COLONOSCOPY SCREENING 1999 SHINGLES VACCINES (#1) 1999 65+ PNEUMOCOCCAL VACCINE (1 of 2 - PCV13) 2014 INFLUENZA VACCINE 01/15/2019 Implants Implanted Type Area [employer] Ranger Device Shelf Model / Identifier Expiration Serial / Date Lot Stent Uretl Unvrsa 7fr 26cm Hydrphlc W/ Gw - [id number] Urological Left: [employer] 08/25/2019 [id number] / Implanted: Qty: 1 on 10/15/2017 by Deborah Jones MD Implants or Ureter, / Sets [employer] [id number] Stent Uretl Unvrsa 6fr 28cm Hydrphlc W/ Gw - [id number] Urological Left: [employer]OOK [employer] 08/06/2020 [id number] / Implanted: Qty: 1 on 11/18/2017 by Deborah Jones MD Implants or Ureter, / Sets [employer] [id number] Procedures Procedure Name Priority Date/Time Associated Diagnosis Comments COPY RECEIVED FROM: Routine 06/24/2018 2:00 Results for this PM [employer]AT[employer] WORK[employer] procedure are in the results section. NON HDL CHOLESTEROL Routine 06/24/2018 2:00 Results for this ([facility]LEX [facility]) PM [employer] WORK[employer] procedure are in the results section. CHOL/HDLC RATIO Routine 06/24/2018 2:00 Results for this (REFLEX [facility]) PM [employer]AT[employer] WORKER procedure are in the results section. LDL-CHOLESTEROL Routine 06/24/2018 2:00 Results for this (REFLEX [facility]) PM [employer]ATEMENT WORKER procedure are in the results section. TRIGLYCERIDES Routine 06/24/2018 2:00 Results for this PM [employer]AT[employer] WORKER procedure are in the results section. HDL CHOLESTEROL Routine 06/24/2018 2:00 Results for this PM [employer]AT[employer] WORKER procedure are in the results section. CHOLESTEROL Routine 06/24/2018 2:00 Results for this PM [employer]AT[employer] WORKER procedure are in the results section. COPY(IES) SENT TO: Routine 06/24/2018 2:00 Results for this PM [employer]AT[employer] WORK[employer] procedure are in the results section. LIPID PANEL Routine 06/24/2018 2:00 Hyperlipidemia, Results for this PM [employer]ATEMENT WORKER unspecified procedure are in hyperlipidemia type the results section. after 01/21/2018 Results NON HDL CHOLESTEROL (REFLEX [facility]) (06/24/2018 2:00 PM [employer]BEST[employer] ABATEMENT WORKER) Non-HDL cholesterol 98 <130 mg/dL [facility] Comment: (calc) AREVALO For patients with diabetes plus 1 major ASCVD risk factor, treating to a non-HDL-C goal of <100 mg/dL (LDL-C of <70 mg/dL) is considered a therapeutic option. Specimen Resulting Agency Comment Performing Organization Information: Site ID: [id number] [facility]: [facility] Address: [address] [place] [phone] Director: Mel Espinal Performing Organization Address City/State/Zipcode Phone Number JENNIFER RODRIGUEZ x.ai [address] [address] CHOL/HDLC RATIO (REFLEX [facility]) (06/24/2018 2:00 PM [employer]BESTOS ABATEMENT WORKER) Cholesterol/HDL ratio 4.1 <5.0 (calc) [facility] [place] Specimen Resulting Agency Comment Performing Organization Information: Site ID: DOLLY Name: [facility] Address: [address] [place] [phone] Director: Mel Espinal Performing Organization Address [facility] Phone Number [facility] [place] [address] [place] [phone] COPY RECEIVED FROM: (06/24/2018 2:00 PM [employer]BESTOS ABATEMENT WORKER) Copy received from: [facility] Comment: [address] [place] [address] Specimen Performing Organization Address City/[facility] Phone Number [facility] LDL-CHOLESTEROL (REFLEX [facility]) (06/24/2018 2:00 PM [employer]BE[employer] ABATEMENT WORKER) LDL cholesterol 70 mg/dL (calc) [facility] calculated Comment: [place] Reference range: <100 Desirable range <100 mg/dL for primary prevention; <70 mg/dL for patients with CHD or diabetic patients with > or=2 CHD risk factors. LDL-C is now calculated using the Emiele calculation, which is a validated novel method providing better accuracy than the Friedewald equation in the estimation of LDL-C. Jeramy SS et al. KASSIE. 2013;310(19): 5555-3803 (http://education.[employer].Understory/faq/IPJ896) Specimen Resulting Agency Comment Performing Organization Information: Site ID: DOLLY Name: [facility] Address: [address] [place] [phone] Director: Mel Espinal Performing Organization Address [facility] Facility[facility] Phone Number [facility] [employer] [facility] [place] [address] [place] [phone] COPY(IES) SENT TO: (06/24/2018 2:00 PM ASBESTOS ABATEMENT WORKER) Copies/mL [facility] Comment: [facility] [address] [facility] [address] [place] [address] Specimen Performing Organization Address City/[facility]/Zipcode Phone Number [facility] Triglycerides (06/24/2018 2:00 PM ASBESTOS ABATEMENT WORKER) Triglycerides 226 (H) <150 mg/dL [facility] Specimen Resulting Agency Comment Performing Organization Information: Site ID: [id number] Name: [facility] Address: [address] [place] [phone] Director: Mel Espinal Performing Organization Address [facility] Phone Number [facility] [employer] [facility] [address] [place] [address] HDL cholesterol (06/24/2018 2:00 PM [employer]BEST[employer] ABATEMENT WORKER) HDL cholesterol 32 (L) >40 mg/dL [facility] Specimen Resulting Agency Comment Performing Organization Information: Site ID: [id number] Name: [facility] Address: [address] [place] [phone] Director: Mel Espinal Performing Organization Address [facility] Facility[facility] [place] [address] Cholesterol (06/24/2018 2:00 PM [employer]BESTOS ABATEMENT WORKER) Cholesterol, total 130 <200 mg/dL [facility] Specimen Resulting Agency Comment Performing Organization Information: Site ID: [facility] Name: [facility] Address: [address] [place] [phone] Director: Mel Espinal Performing Organization Address [facility] Phone Number [facility] [employer] [place] [address] Lipid panel (06/24/2018 2:00 PM ASBESTOS ABATEMENT WORKER) Cholesterol, total 130 <200 mg/dL [facility] HDL cholesterol 32 (L) >40 mg/dL [facility] Triglycerides 226 (H) <150 mg/dL [facility] LDL cholesterol 70 mg/dL (calc) [facility] calculated Comment: [place] Reference range: <100 Desirable range <100 mg/dL for primary prevention; <70 mg/dL for patients with CHD or diabetic patients with > or=2 CHD risk factors. LDL-C is now calculated using the Emilee calculation, which is a validated novel method providing better accuracy than the Friedewald equation in the estimation of LDL-C. Jeramy CRAIG et al. KASSIE. 2013;310(19): 6343-0602 (http://education.[employer].com/faq/VBF814) Cholesterol/HDL 4.1 <5.0 (calc) [facility] Non-HDL cholesterol 98 <130 mg/dL [facility] Comment: (calc) [place] For patients with diabetes plus 1 major ASCVD risk factor, treating to a non-HDL-C goal of <100 mg/dL (LDL-C of <70 mg/dL) is considered a therapeutic option. Specimen Blood Resulting Agency Comment Performing Organization Information: Site ID: [id number] Name: [facility] Address: [address] [place] [phone] Director: Mel Espinal Performing Organization Address City/State/Zipcode Phone Number [employer] [place] [address] [place], [place] [id number] after 01/21/2018 Advance Directives Patient has advance care planning documents on file. For more information, please contact:Abel Patterson[address] [place]ía [place] [address]
[2019-01-22] MEDS ORDERED: BUPIVACAINE 0.5% PF 10 ML VIAL ONE (10:22)
[2019-01-22] MEDS ORDERED: LIDOCAINE 1% 20 ML MDV ONE (10:22)
[2019-01-22] MEDS ORDERED: TETANUS & DIPHTHERIA TOX,ADULT 0.5 ML VIAL ONE (11:22)
--- NOTE | 2019-01-22 11:51 | ER ---
Nurse's Notes [facility] Name: Guzman Baires Age: 68 yrs Sex: Male : 1950 Arrival Date: 01/22/2019 Time: 10:13 Bed 8 Private MD: John Dunbar E Diagnosis: Fish hook - Left 5th Finger Presentation: 01/22 10:20 Presenting complaint: Patient states: I got a fish hook stuck into my finger. sg Transition of care: patient was not received from another setting of care. Onset of symptoms was January 22, 2019. Risk Assessment: Do you want to hurt yourself or someone else? Patient reports no desire to harm self or others. Initial Sepsis Screen: Does the patient meet any 2 criteria? No. Patient's initial sepsis screen is negative. Does the patient have a suspected source of infection? No. Patient's initial sepsis screen is negative. Care prior to arrival: None. 10:20 Method Of Arrival: Ambulatory sg 10:20 Acuity: ARIN 4 sg Historical: - Allergies: 10:20 Aleve; sg 10:20 Vicodin; sg - Home Meds: 10:38 "water pill" [Active]; Lyrica Oral [Active]; unknown blood pressure medication sg [Active]; "Blood Thinner" [Active]; - PMHx: 10:20 BPH; chronic neck and back pain; Hypertension; Kidney stones; sg - PSHx: 10:20 Lithotripsy; Green light procedure; sg - Immunization history:: Adult Immunizations not up to date, Last tetanus immunization: unknown. - Social history:: Smoking status: Patient/guardian denies using tobacco. - Ebola Screening: : Patient negative for fever greater than or equal to 101.5 degrees Fahrenheit, and additional compatible Ebola Virus Disease symptoms Patient denies exposure to infectious person Patient denies travel to an Ebola-affected area in the 21 days before illness onset No symptoms or risks identified at this time. Screenin:22 Abuse screen: Denies threats or abuse. Denies injuries from another. Nutritional sv screening: No deficits noted. Tuberculosis screening: No symptoms or risk factors identified. Fall Risk None identified. Assessment: 10:10 General: Appears in no apparent distress. well groomed, well developed, well nourished, sg Behavior is calm, cooperative, appropriate for age. Pain: Complains of pain in left little finger Pain currently is 3 out of 10 on a pain scale. Quality of pain is described as aching, tender. Neuro: Level of Consciousness is awake, alert, obeys commands, Oriented to person, place, time, Shipfitters Supervisor are equal bilaterally Moves all extremities. Gait is steady, Speech is normal, Facial symmetry appears normal. Cardiovascular: Capillary refill is brisk in bilateral fingers Patient's skin is warm and dry. Chest pain is denied. Respiratory: Airway is patent Respiratory effort is even, unlabored, Respiratory pattern is regular, symmetrical. GI: Abdomen is round non-distended, Reports tolerance of fluids, tolerance of food. : No signs and/or symptoms were reported regarding the genitourinary system. EENT: No signs and/or symptoms were reported regarding the EENT system. Derm: Skin is pink, warm \\T\\ dry. Musculoskeletal: Circulation, motion, and sensation intact. Range of motion: intact in all extremities. Injury Description: Foreign body is located left little finger is fish hook. 10:29 Reassessment: Patient appears in no apparent distress at this time. Patient and/or sg family updated on plan of care and expected duration. Pain level reassessed. Deandra at bedside for extraction of the fish hook from the patients finger. Vital Signs: 10:21 BP 144 / 92; Pulse 79; Resp 18; Temp 98(O); Pulse Ox 97% ; sv 11:31 BP 128 / 89; Pulse 77; Resp 16; Pulse Ox 97% on R/A; Pain 3/10; sg ED Course: 10:13 Patient arrived in ED. mr 10:13 John Dunbar MD is Private Physician. mr 10:18 Arm band placed on. sg 10:20 Triage completed. sg 10:22 Jake Fang PA is PHCP. jmm 10:22 Salvatore Delgado MD is Attending Physician. jmm 10:22 Patient has correct armband on for positive identification. Bed in low position. Call sv light in reach. Door closed. Head of bed elevated. 10:24 Dario Cole, HAY is Primary Nurse. sg 10:32 assist with foreign body removal, set up supplies. sg 11:10 Hand Left 3 View XRAY In Process Unspecified. EDMS 11:50 John Dunbar MD is Referral Physician. jmm 11:55 Patient did not have IV access during this emergency room visit. sg Administered Medications: 10:25 Drug: Marcaine (0.5 %) 10 ml {Note: medication administered by MARIELA Liriano.} Volume: sg 10 ml; Route: Infiltration; 11:25 Drug: Tetanus-Diphtheria Toxoid Adult 0.5 ml {Counting Machine Operator: [email or web address]. Exp: sg 09/06/2020. Lot #: [id number]. } Route: IM; Site: left deltoid; Outcome: 11:50 Discharge ordered by MD. [facility] 11:55 Discharged to home ambulatory, with family. 11:55 Condition: good 11:55 Discharge instructions given to patient, Instructed on discharge instructions, follow up and referral plans. medication usage, safety practices, wound care, Demonstrated understanding of instructions, follow-up care, medications, Prescriptions given X 1. 11:58 Patient left the ED. hb Signatures: Dispatcher [employer] EDSaba Juárez RN RN Dario Cole RN RN Jake Fang PA PA jmm Rivera, Mary mr Baxter, Heather, RN RN Corrections: (The following items were deleted from the chart) 10:22 10:21 BP 144 / 92; Pulse 79bpm; Resp 18bpm; Pulse Ox 97%; sv sv 16:16 10:10 Pain: Complains of pain in left index finger Pain currently is 3 out of 10 on a sg pain scale. Quality of pain is described as aching, tender, sg 16:16 10:10 Injury Description: Foreign body is located left index finger is fish hook sg sg
--- NOTE | 2019-01-22 11:52 | EDPHYS ---
Physician Documentation [facility] Name: Guzman Baires Age: 68 yrs Sex: Male : 1950 Arrival Date: 01/22/2019 Time: 10:13 Bed 8 Private MD: John Dunbar E ED Physician Salvatore Delgado HPI: 01/22 10:22 This 68 yrs old Male presents to ER via Ambulatory with complaints of Fish jmm hook in finger. 10:22 The patient or guardian reports injury. Onset: The symptoms/episode began/occurred jmm acutely, 1 hour(s) ago. Modifying factors: The symptoms are alleviated by nothing, the symptoms are aggravated by nothing. Associated signs and symptoms: Pertinent negatives: decreased sensation distally, numbness distally, tingling distally. This is a 68 year old male with a history of CAD that presents to the ED with complaints of a fish hook to the left 5th finger. Unable to remove. Occurred in salt water. Denies other injury. Tetanus is not UTD. . Historical: - Allergies: 10:20 Aleve; sg 10:20 Vicodin; sg - Home Meds: 10:38 "water pill" [Active]; Lyrica Oral [Active]; unknown blood pressure medication sg [Active]; "Blood Thinner" [Active]; - PMHx: 10:20 BPH; chronic neck and back pain; Hypertension; Kidney stones; sg - PSHx: 10:20 Lithotripsy; Green light procedure; sg - Immunization history:: Adult Immunizations not up to date, Last tetanus immunization: unknown. - Social history:: Smoking status: Patient/guardian denies using tobacco. - Ebola Screening: : Patient negative for fever greater than or equal to 101.5 degrees Fahrenheit, and additional compatible Ebola Virus Disease symptoms Patient denies exposure to infectious person Patient denies travel to an Ebola-affected area in the 21 days before illness onset No symptoms or risks identified at this time. ROS: 10:22 Constitutional: Negative for fever, chills, and weight loss, Cardiovascular: Negative jmm for chest pain, palpitations, and edema, Respiratory: Negative for shortness of breath, cough, wheezing, and pleuritic chest pain. 10:22 MS/extremity: Positive for injury or acute deformity. 10:22 All other systems are negative. Exam: 10:22 Constitutional: This is a well developed, well nourished patient who is awake, alert, jmm and in no acute distress. Head/Face: atraumatic. Eyes: EOMI, no conjunctival erythema appreciated ENT: Moist Mucus Membranes Neck: Trachea midline, Supple Chest/axilla: Normal chest wall appearance and motion. Cardiovascular: Regular rate and rhythm. No edema appreciated Respiratory: Normal respirations, no respiratory distress appreciated Abdomen/GI: Non distended, soft Back: Normal ROM Skin: General appearance color normal 10:22 Musculoskeletal/extremity: ROM: intact in all extremities, FB noted to the proximal left 5th finger, < 2 sec dist cap refill. NVI. 10:22 Skin: Appearance: Color: normal in color. 10:22 Neuro: Orientation: is normal, Mentation: is normal, Memory: is normal. 10:22 Psych: Behavior/mood is pleasant, cooperative. Vital Signs: 10:21 BP 144 / 92; Pulse 79; Resp 18; Temp 98(O); Pulse Ox 97% ; sv 11:31 BP 128 / 89; Pulse 77; Resp 16; Pulse Ox 97% on R/A; Pain 3/10; sg Procedures: 11:53 Foreign Body Removal: a fishhook, from the left hand, by using a hemostat, The patient jmm tolerated the removal well. MDM: 10:35 Patient medically screened. m 11:49 Data reviewed: vital signs, nurses notes. Counseling: I had a detailed discussion with emory the patient and/or guardian regarding: the historical points, exam findings, and any diagnostic results supporting the discharge/admit diagnosis, radiology results, the need for outpatient follow up, to return to the emergency department if symptoms worsen or persist or if there are any questions or concerns that arise at home. ED course: Patient prescribed doxycyline for skin coverage. patient advised to follow up with pcp and given wound infection reture precautions. patient understood and agrees with the plan of care. . 01/22 10:40 Order name: Hand Left 3 View XRAY [facility] Administered Medications: 10:25 Drug: Marcaine (0.5 %) 10 ml {Note: medication administered by PA. 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 Exp: sg 09/06/2020. Lot #: [id number]. } Route: IM; Site: left deltoid; Disposition: 12:32 Co-signature as Attending Physician, Salvatore Delgado MD I agree with the assessment and kdr plan of care. Disposition: 01/22/19 11:50 Discharged to Home. Impression: Fish hook - Left 5th Finger. - Condition is Stable. - Discharge Instructions: Foreign Body. - Prescriptions for Doxycycline Hyclate 100 mg Oral Tablet - take 1 tablet by ORAL route every 12 hours; 20 tablet. - Medication Reconciliation Form, Thank You Letter, Antibiotic Education, Prescription Opioid Use form. - Follow up: John Dunbar MD; When: 2 - 3 days; Reason: Recheck today's complaints, Continuance of care, Re-evaluation by your physician. Signatures: Dispatcher [employer] EDDario Lee, RN RN Salvatore Hollins MD MD kdr Mickail, Joel, PA PA jmm Baxter, Heather, RN RN Corrections: (The following items were deleted from the chart) 11:58 11:50 01/22/2019 11:50 Discharged to Home. Impression: Fish hook - Left 5th Finger. hb Condition is Stable. Forms are Medication Reconciliation Form, Thank You Letter, Antibiotic Education, Prescription Opioid Use. Follow up: John Dunbar; When: 2 - 3 days; Reason: Recheck today's complaints, Continuance of care, Re-evaluation by your physician. emory
[2019-01-22 12:03] VITALS: TEMP 98; O2SAT 97
[2019-01-22 12:04] VITALS: BP 128/89
--- NOTE | 2019-01-22 12:37 | RAD REPORT ---
EXAM DESCRIPTION: RAD - Hand Left 3 View - 01/22/2019 11:05 am CLINICAL HISTORY: Left hand foreign body COMPARISON: None. FINDINGS: A large fish hook is present in the soft tissues ventral margin of the fifth proximal phal anx. No bone involvement. No small foreign body fragments are seen. No fracture or other acute bone f inding. No acute joint process. IMPRESSION: A large fish hook is present in the ventral soft tissues of the fifth proximal phalanx. No bone involvement.
== END 2019-01-22 11:58 | disposition home or self-care (01) ==
LOC: ER 10:10
DX: S60.352A Superficial foreign body of left thumb, initial encounter (principal); I10 Essential (primary) hypertension; Z23 Encounter for immunization; Z88.5 Allergy status to narcotic agent; Z88.6 Allergy status to analgesic agent
CPT/HCPCS: 90471; 90714; 99283

== ENCOUNTER 2020-08-30 06:57 | Day surgery (SDC) | payer OTHER ==
[2020-08-26 10:55] VITALS: BMI 29.0
--- NOTE | 2020-08-26 11:28 | RAD REPORT ---
EXAM DESCRIPTION: RAD - Chest Pa And Lat (2 Views) - 08/26/2020 11:23 am CLINICAL HISTORY: pre-op cath procedure Chest pain. COMPARISON: Chest Single View dated 07/27/2016 FINDINGS: The lungs are clear. The heart is normal in size. No displaced fractures. Small left diaph ragmatic pleural calcifications seen. IMPRESSION: No acute or concerning finding suspected.
[2020-08-26 11:39] LABS: Absolute Lymphocytes (CBC) 3.1 K/uL (0.7-4.9); Basophils % 0.3 % (0-1.3); Lymphocytes % 34.6 % (15.3-44.8); MPV 8.2 fL (7.6-11.3); RBC Red Blood Cell Count 5.86 M/uL (4.33-5.43)
[2020-08-26 11:54] LABS: Protime INR 0.98
[2020-08-26 12:15] LABS: Potassium 4.1 mmol/L (3.5-5.1)
--- NOTE | 2020-08-27 08:31 | EKG ---
Test Date: 2020-08-26 Test Time: 11:10:53 Cane Furniture Maker: VARUN MEASUREMENT RESULTS: Intervals: Rate: 74 IL: 164 QRSD: 94 QT: 370 QTc: 410 [place]: P: IL: 164 QRS: 129 T: 126 INTERPRETIVE STATEMENTS: Normal sinus rhythm Lateral infarct, age undetermined Abnormal ECG Compared to ECG 09/17/2018 07:35:49 Myocardial infarct finding now present Left-axis deviation no longer present ST (T wave) deviation no longer present Electronically Signed On 08-27-20 08:29:13 COMFORT ADVISOR by Dashawn Moss
[2020-08-30] MEDS ORDERED: HEPA 1000U/500MLS 1,000 UNIT/500 ML BAG IV ONE (07:18)
[2020-08-30] MEDS ORDERED: LIDOCAINE 1% 20 ML MDV ONE ×2 (07:18→07:19)
[2020-08-30] MEDS ORDERED: NA CHLORIDE 0.9% 500 ML ONE (07:31)
[2020-08-30] MEDS ORDERED: MIDAZOLAM HCL 2 MG/2 ML INJ ONE ×2 (07:35→07:53)
[2020-08-30] MEDS ORDERED: ATROPINE SULF 1 MG/10 ML SYR IV ONE (07:36)
[2020-08-30] MEDS ORDERED: FENTANYL CITR 100 MCG/2 ML ONE (07:36)
[2020-08-30] MEDS ORDERED: MIDAZOLAM HCL 5 ML ONE (08:02)
--- NOTE | 2020-08-30 08:19 | OP ---
Surgeon: Dashawn Moss MD Calenderer: Huy Francois. Operation Performed: Outpatient bilateral selective carotid angiogram. Indication: Cerebrovascular disease, positive carotid Doppler. Mr. Baires is a 70-year-old, who gunderson s a history of hypertension, dyslipidemia, coronary artery disease, had a routine carotid Doppler in the office showing severe stenosis in the left ICA. Procedure In Detail: The patient was brought to the high density press laborer today as an outpatient, prepped and kaci ped in routine sterile fashion, given Versed for sedation with fentanyl. A 6-Danish sheath introduce d in the right common femoral artery successfully using the Seldinger technique. StarClose was used to close the case. Angiography today shows diffuse disease in the common iliac and common femoral ar mia. A JR4 catheter was used to cannulate the right common carotid artery and then selectively ladonna ulate the left common carotid artery. We found that the common carotid arteries were normal bilatera lly and the external carotids were normal bilaterally. There was a 30% to 40% stenosis in the right ICA. The left ICA had a 90% stenosis with an ulcerated plaque. There were no complications. Total conscious sedation was 45 minutes. Estimated Blood Loss: 5 mL. Final Diagnoses: Severe left ICA stenosis and mild right ICA stenosis. Plan: Plan for a left carotid endarterectomy, which will be done as an outpatient in [place]. The p jaki will remain at bedrest after StarClose for 2 hours and go home with his CD, and I will arrange followup at [facility] for carotid endarterectomy. DILCIA/AAMIR Voice ID: [id number] Report ID: [id number]
[2020-08-30 09:07] VITALS: TEMP 97.5
[2020-08-30 09:47] VITALS: O2SAT 98
[2020-08-30 10:57] VITALS: BP 150/78
== END 2020-08-30 10:46 | disposition home or self-care (01) ==
LOC: CCL 06:57
DX: I65.23 Occlusion and stenosis of bilateral carotid arteries (principal); I25.10 Atherosclerotic heart disease of native coronary artery without angina pectoris; I10 Essential (primary) hypertension; E78.2 Mixed hyperlipidemia; K21.9 Gastro-esophageal reflux disease without esophagitis; N40.0 Benign prostatic hyperplasia without lower urinary tract symptoms; Z95.5 Presence of coronary angioplasty implant and graft; Z87.891 Personal history of nicotine dependence; Z88.6 Allergy status to analgesic agent; Z20.822 Contact with and (suspected) exposure to COVID-19
CPT/HCPCS: 93005; 85025; 80048; 36415; 85610; 71046; 36222; U0003; C1893; J2250 ×2; J3010; J7040; J1644

== ENCOUNTER 2022-07-03 13:41 | Emergency (ER) | payer OTHER ==
--- OUTSIDE RECORDS SUMMARY | 2022-07-03 13:47 | XMS REPORT | Continuity of Care Document ---
:1950 Author Organization [facility] t Address [address] [place] [address] Dr. [address] [place] [address] Care Team Providers Name Role Phone VIK MAGALI Sykes Primary Care Physician Unavailable Cosme Whipple Attending Clinician Unavailable Christopher Coppola Attending Clinician Unavailable PETER MISTRY Attending Clinician Unavailable Hyun West Attending Clinician HYUN ACE Attending Clinician Unavailable GASPER HERNÁNDEZ Attending Clinician Unavailable MD GASPER HERNÁNDEZ Attending Clinician Unavail able Adrienne-Mbayo_A_AH Attending Clinician Unavailable PETER MISTRY Admitting Clinician Unavailable GASPER HERNÁNDEZ Admitting Clinician Unavailable MD GASPER HERNÁNDEZ Admitting Clinician Unavail able Adrienne-Mbayo_A_AH Admitting Clinician Unavailable Payers Payer Name Policy Type Policy Number Effective Date Expiration Date S chuckie [facility] [id number] 2019 PLUS CHOICE 00:00:00 [place] [id number] 2021 Common HEALTHCARE DUAL 00:00:00 [facility] C1 [id number] [facility] C1 [id number] [facility] C1 [id number] Common [facility] Wellcare C1 [id number] [facility] Wellcare C1 [id number] [facility] WELLCARE OF [place] - [id number] 2019 [place] 00:00:00 (MEDICARE REPLACEMENT/ADVA NTAGE - HMO) Problems Condition Condition Condition Status Onset Resolution Last Treating Co mments Source Name Details Category Date Date Treatment Clinician Date Left Left Disease Active Methodi carotid carotid 10-12 st stenosis stenosis 00:00: Hospit a 00 l Internal Internal Disease Active Overview: Me thodi carotid carotid 09-[address] artery artery 00:00: g of this Hospita stenosis, stenosis, 00 note l left left might be different from the original. 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 Patient with long standing smoking history. Current smoker with 1/2 PPD. totoal smoking history of more than 30 years with 1.5 PPD. Trying to stop smoking and currently doing on 1/2 PPD and using nicotine patches. He comes here for preop clearance for laminecto my surgeryHe otherwise denies any worsening sob.Never been admitted with copd exacerbat ionStarte d inhalers little while ago and is feeling better on those.He is not immunized and doesn't want to take flu and PNA shots.Vik sandoval is bland, PFT shows normal FEV1, GOLD stage A COPDLast Assessmen t & Plan: Formattin g of this note might be different from the original. I would recommend to continue symbicort and spiriva as started previousl yNeeds to take them in periopera tive period as wellHe needs to stop smoking completel y now, as stopping smoking around a month of surgery has been shown to minimize complicat ions in periopera tive periodPer ioperativ e steroids may help too.His PFT shows preserved FEV1, Will do CT chest for emphysema and also echoI want him to stop smoking, did extensive counselin g, spent over 40 minutesDi d counselin g for vaccinati on as well. He is moderate risk for periopera tive complicat ions due to his age and COPD Essential Essential Disease Active 2016-06 Overview: Methodi hypertensi hypertensi 06-[address] on on 00:00: g of this Hospita 00 note l might be different from the original. His BP still high todayHas been started on metoprolo l 100 mg daily and also on HCTZLast Assessmen t & Plan: Formattin g of this note might be different from the original. Hypertens ion is unchanged .Continue current treatment regimen.D ietary sodium restricti on.Weight loss.Regu lar aerobic exercise. Stop smoking.C ontinue current medicatio ns.I would suggest to change her to an alternati ve agent. BB has been shown to make COPD worse. 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 Still smoking 1/2 PPDOn nicotine patch 21 mg dailyLast Assessmen t & Plan: Formattin g of this note might be different from the original. 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 long-term current use of insulin [id number] Other Problem Common obstructiv [facility] e and - CHI reflux uropathy [facility] Coronary Coronary Problem Commo n artery artery [facility] disease disease - [facility] COPD - COPD Problem Common Chronic (chronic Spirit obstructiv obstructiv - [facility] e e pulmonary pulmonary [place] [facility] disease disease) [facility] [id number] Hydronephr Problem Co mmon osis due Spirit to - CHI obstructio [facility] ureter [facility] [id number] Stented Problem Commo n coronary Spirit artery - [facility] [id number] Benign Problem Common prostatic Spirit hyperplasi - [facility] a with [facility] urinary Medical tract Center symptoms [id number] S/P Problem Common carotid Spirit endarterec - [facility] abdulkadir [facility] [id number] Hydrourete Problem Com mon r, left Spirit [facility] Allergic Allergic Problem Commo n rhinitis rhinitis Spirit [facility] [id number] Mixed Problem Common hyperlipid Spirit emia - [facility] [id number] Bilateral Problem Com mon carotid [facility] artery - [facility] stenosis [facility] Allergies, Adverse Reactions, Alerts Allergy Allergy Status Severity Reaction(s) Onset Inactive Treating Comm ents Source Name Type Date Date Clinician Naproxen Propensi Active Hives 2018-06 Univer s Sodium ty to 2-30 ity of adverse 00:00: [place] reaction 00 Medical s Branch Hydrocod Propensi Active Palpitations 2018-06 Univers one ty to 2-30 ity of adverse 00:00: [place] reaction 00 Medical s Branch NAPROXEN DRUG Active Hives 2018-06 Univers SODIUM INGREDI 2-30 ity of 00:00: [place] 00 Medical Branch HYDROCOD DRUG Active Palpitations 2018-06 Un darius ONE INGREDI 2-30 ity of 00:00: [place] 00 Medical Branch Hydrocod Propensi Active Shortness of Hives, Univers one-Acet ty to Breath 9-20 palpitati ity o f aminophe adverse 00:00: ons [place] n reaction 00 Medical s Branch HYDROCOD DRUG Active High SOB Univers ONE-ACET 9-20 ity of AMINOPHE 00:00: [place] N 00 Medical Branch Naproxen Propensi Active Shortness Of Hives, Methodi Sodium ty to Breath 9-[address] adverse 00:00: ons Hospita reaction 00 l s to drug Hydrocod Propensi Active Shortness Of Hives, Methodi one-Acet ty to Breath 9-[address] aminophe adverse 00:00: ons Hospita n reaction 00 l s to drug 4614 Drug Active rash Common allergy [facility] - [facility] Family History Family Member Diagnosis Comments Start Date Stop Date Source Natural father Heart disease [facility] Natural father Heart failure [facility] Natural father Hypertension [facility] father Arthritis [facility] Natural father Clotting disorder [facility] Natural father Heart attack [facility] Natural mother Arthritis [facility] mother Diabetes [facility] Social History Social Habit Start Date Stop Date Quantity Comments Source History of Common Spirit - Tobacco Use [facility] Tobacco use and 2020-12-07 2020-12-07 Never used Universit y of exposure 00:00:00 00:00:00 [facility] Alcohol intake 2020-10-14 2020-10-14 Current drinker of [place] [employer] 00:00:00 00:00:00 alcohol (finding) Hospita l Cigarettes smoked 2020-10-07 2020-10-07 [facility] [facility] current (pack per 00:00:00 00:00:00 Hospita l day) - Reported Cigarette 2020-10-07 2020-10-07 [facility] pack-years 00:00:00 00:00:00 Hospital Tobacco Comment 2020-10-07 2020-10-[address] 00:00:00 00:00:00 tobacco use Hospital 09/15/2018 Sex [birth year] At [birth year] [facility] 00:00:00 00:00:00 Hospital Smoking Status Start Date Stop Date Source Former Smoker 2022-05-18 00:00:00 2022-05-18 00:00:00 Common S pirit - CH[facility] Medications Ordered Filled Start Stop Current Ordering Indication Dosage Frequency Signature Comments Components Source Medication Medication Date Date Medication? Clinician (SIG) Name Name Nitrofurant Nitrofurant 2021- No 1{capsu BID Nitrofuran oin oin 02-26 le_with toin Macrocrysta Macrocrysta 00:00: 00:00 _food_o Macrocryst l 100 MG l 100 MG 00 :00 r_milk} al 100 MG Nitrofurant Nitrofurant 2021- No 1{capsu BID Nitrofuran oin oin 02-26 le_with toin Macrocrysta Macrocrysta 00:00: 00:00 _food_o Macrocryst l 100 MG l 100 MG 00 :00 r_milk} al 100 MG Rocephin Rocephin 0 No 250mg Comm on (Ceftriaxon (Ceftriaxon 8-30 S pirit e) e) 00:00: - [facility] Rocephin Rocephin 2021-0 No 250mg Comm on (Ceftriaxon (Ceftriaxon 8-30 S pirit e) e) 00:00: - [facility] Rocephin Rocephin 2-0 No 250mg Comm on (Ceftriaxon (Ceftriaxon 8-30 S pirit e) e) 00:00: - [facility] Rocephin Rocephin 2021-0 No 250mg Comm on (Ceftriaxon (Ceftriaxon 8-30 S pirit e) e) 00:00: - [facility] Rocephin Rocephin 2021-0 No 250mg Comm on (Ceftriaxon (Ceftriaxon 8-30 S pirit e) e) 00:00: - [facility] Rocephin Rocephin 2-0 No 250mg Comm on (Ceftriaxon (Ceftriaxon 8-30 S pirit e) e) 00:00: - CHI 00 [facility] Rocephin Rocephin 2021-0 No 250mg Comm on (Ceftriaxon (Ceftriaxon 8-30 S pirit e) e) 00:00: - CHI 00 [facility] Rocephin Rocephin 2-0 No 250mg Comm on (Ceftriaxon (Ceftriaxon 8-30 S pirit e) e) 00:00: - CHI 00 [facility] Rocephin Rocephin 2-0 No 250mg Comm on (Ceftriaxon (Ceftriaxon 8-30 S pirit e) e) 00:00: - CHI 00 [facility] Amoxicillin Amoxicillin 2021-0 2021- No 1{table BID Amoxicilli -Pot -Pot 02-13 t} n-Pot Clavulanate Clavulanate 00:00: 00:00 Clavulanat 875-125 MG 875-125 MG 00 :00 e 875-125 MG Amoxicillin Amoxicillin 2021-0 2021- No 1{table BID Amoxicilli -Pot -Pot 02-13 t} n-Pot Clavulanate Clavulanate 00:00: 00:00 Clavulanat 875-125 MG 875-125 MG 00 :00 e 875-125 MG Amoxicillin Amoxicillin 2021-0 2021- No 1{table BID Amoxicilli -Pot -Pot 02-13 t} n-Pot Clavulanate Clavulanate 00:00: 00:00 Clavulanat 875-125 MG 875-125 MG 00 :00 e 875-125 MG Metoprolol Metoprolol 2021-0 No 1{table BID Metoprolol Succinate Succinate 5-26 t} Succinate ER 50 MG ER 50 MG 00:00: ER 50 MG 00 Metoprolol Metoprolol 2021-0 No 1{table BID Metoprolol Succinate Succinate 5-26 t} Succinate ER 50 MG ER 50 MG 00:00: ER 50 MG 00 Metoprolol Metoprolol 2021-0 No 1{table BID Metoprolol Succinate Succinate 5-26 t} Succinate ER 50 MG ER 50 MG 00:00: ER 50 MG 00 Metoprolol Metoprolol 2021-0 No 1{table BID Metoprolol Succinate Succinate 5-26 t} Succinate ER 50 MG ER 50 MG 00:00: ER 50 MG 00 Metoprolol Metoprolol No 1{table BID Metoprolol Succinate Succinate - t} Succinate ER 50 MG ER 50 MG 00:00: ER 50 MG 00 Pseudoeph-B Pseudoeph-B 2021- No 5{ml_as QID Pseudoeph- romphen-DM romphen-DM 10-04 _needed Bromphen-D 00:00: 00:00 } M 30-2-10 MG/5ML MG/5ML 00 :00 MG/5ML Pseudoeph-B Pseudoeph-B 2021- No 5{ml_as QID Pseudoeph- romphen-DM romphen-DM 10-04 _needed Bromphen-D 00:00: 00:00 } M 30-2-10 MG/5ML MG/5ML 00 :00 MG/5ML methylPREDN methylPREDN 2021- No QD methylPRED ISolone 4 ISolone 4 10-04 NISolone 4 MG MG 00:00: 00:00 MG 00 :00 methylPREDN methylPREDN 2021- No QD methylPRED ISolone 4 ISolone 4 10-04 NISolone 4 MG MG 00:00: 00:00 MG 00 :00 aspirin Yes 81mg QD Take 81 mg Meth taylor (ECOTRIN) 4-[address] 81 MG 12:00: every Hospita enteric 48 morning. l coated tablet albuterol Yes 1{puff} Q4H Inhale 1 M ethodi (PROAIR 4-[address] HFA) 90 12:00: 4 (four) Hospit a mcg/actuati 48 hours as l on inhaler needed for wheezing. docusate Yes 100mg QD Take 100 Meth taylor sodium 4-[address] (COLACE) 12:00: mouth Hospita 100 MG 48 every l capsule morning. atorvastati Yes 80mg QD Take 80 mg Methodi n (LIPITOR) 4-[address] 80 MG 12:00: daily. Hospita tablet 48 l cephALEXin 2019-06 Yes [id number] 500mg Take 1 Univers (KEFLEX) 2-17 capsule by ity o f 500 mg 00:00: mouth 2 [place] capsule 00 (two) Medical times Branch daily. Fluticasone 2019-06 Yes 1{puff} Inhale 1 Univers -Salmeterol 2-14 Puff every it y of (ADVAIR 20:29: 12 [place] DISKUS) 13 (twelve) Medical 100-50 hours. Branch mcg/dose inhalation disk albuterol 2019-06 Yes 2{puff} Inhale 2 U nivers 90 2-14 Puffs ity of mcg/actuati 20:29: every 6 [place] as on inhaler 13 (six) Medical hours as Branch needed for Wheezing or Shortness of Breath. aspirin 81 2019-06 Yes 81mg Take 81 mg U nivers mg chewable 2-14 by mouth ity of tablet 20:25: daily. [address] Branch umeclidiniu 2019-06 Yes 1{puff} Take 1 M ethodi m-vilantero 1-[address] L (Anoro 00:00: mouth. Hospita Ellipta) 00 l 62.5-25 mcg/actuati on blister with device ANORO 2019-06 Yes 1{puff} Take 1 Univers ELLIPTA 1-20 Puff by ity of 62.5-25 00:00: mouth [place] mcg/actuati 00 daily. Medica l on Branch inhalation disk fluticasone 2019-06 Yes 1{spray Use 1 Un darius propionate 1-20 } [place] in ity o f 50 00:00: each [place] mcg/actuati 00 nostril Medic al on nasal daily. Branch spray metoprolol 2018-06 Yes Univers succinate 0-24 ity of XL 100 mg 00:00: [place] 24 hr 00 Medical tablet Branch pantoprazol 2018-06 Yes Univer s e 40 mg EC 0-24 ity of tablet 00:00: [place] 00 Medical Branch metoprolol Yes 50mg Q.5D Take 50 mg M ethodi succinate 4-[address] XL 00:00: (two) Hospita (TOPROL-XL) 00 times a l 100 mg 24 day. hr tablet pantoprazol Yes Method i e 4-02 st (PROTONIX) 00:00: Hospita 40 MG EC 00 l tablet atorvastati Yes Patient Met hodi n (LIPITOR) 09-[address] 80 MG 00:00: half Hospita tablet 00 tablet l daily atorvastati Yes Patient Uni vers n 80 mg 09-15 taking ity of tablet 00:00: half [place] 00 tablet Medical daily Branch Advair Advair No 1{puff} BID Advair Diskus Diskus Diskus 100-50 100-50 100-50 MCG/DOSE MCG/DOSE MCG/DOSE Albuterol Albuterol No 1{puff_ 6xD Albuterol Sulfate HFA Sulfate HFA as_need Sulfate 108 (90 108 (90 ed} HFA 108 Base) Base) (90 Base) MCG/ACT MCG/ACT MCG/ACT Fluticasone Fluticasone No 1{spray QD Fluticason Propionate Propionate _in_eac e 50 MCG/ACT 50 MCG/ACT h_nostr Propionate il} 50 MCG/ACT Protonix 40 Protonix 40 No 1{table QD Protonix MG MG t} 40 MG Toprol XL Toprol XL No 1{table BID Toprol XL 50 MG 50 MG t} 50 MG Lipitor 80 Lipitor 80 No 1{table QD Lipitor 80 MG MG t} MG Aspirin 81 Aspirin 81 No 1{table QD Aspirin 81 81 MG 81 MG t} 81 MG Anoro Anoro No 1{puff} QD Anoro Ellipta Ellipta Ellipta 62.5mcg/25 62.5mcg/25 62.5mcg/25 mcg mcg mcg Aspirin 81 Aspirin 81 No 1{table QD Aspirin 81 81 MG 81 MG t} 81 MG Albuterol Albuterol No 1{puff_ 6xD Albuterol Sulfate HFA Sulfate HFA as_need Sulfate 108 (90 108 (90 ed} HFA 108 Base) Base) (90 Base) MCG/ACT MCG/ACT MCG/ACT Protonix 40 Protonix 40 No 1{table QD Protonix MG MG t} 40 MG Advair Advair No 1{puff} BID Advair Diskus Diskus Diskus 100-50 100-50 100-50 MCG/DOSE MCG/DOSE MCG/DOSE Lipitor 80 Lipitor 80 No 1{table QD Lipitor 80 MG MG t} MG Toprol XL Toprol XL No 1{table BID Toprol XL 50 MG 50 MG t} 50 MG Fluticasone Fluticasone No 1{spray QD Fluticason Propionate Propionate _in_eac e 50 MCG/ACT 50 MCG/ACT h_nostr Propionate il} 50 MCG/ACT Anoro Anoro No 1{puff} QD Anoro Ellipta Ellipta Ellipta 62.5mcg/25 62.5mcg/25 62.5mcg/25 mcg mcg mcg Advair Advair No 1{puff} BID Advair Diskus Diskus Diskus 100-50 100-50 100-50 MCG/DOSE MCG/DOSE MCG/DOSE Albuterol Albuterol No 1{puff_ 6xD Albuterol Sulfate HFA Sulfate HFA as_need Sulfate 108 (90 108 (90 ed} HFA 108 Base) Base) (90 Base) MCG/ACT MCG/ACT MCG/ACT Anoro Anoro No 1{puff} QD Anoro Ellipta Ellipta Ellipta 62.5mcg/25 62.5mcg/25 62.5mcg/25 mcg mcg mcg Aspirin 81 Aspirin 81 No 1{table QD Aspirin 81 81 MG 81 MG t} 81 MG Toprol XL Toprol XL No 1{table BID Toprol XL 50 MG 50 MG t} 50 MG Protonix 40 Protonix 40 No 1{table QD Protonix MG MG t} 40 MG Lipitor 80 Lipitor 80 No 1{table QD Lipitor 80 MG MG t} MG Fluticasone Fluticasone No 1{spray QD Fluticason Propionate Propionate _in_eac e 50 MCG/ACT 50 MCG/ACT h_nostr Propionate il} 50 MCG/ACT Advair Advair No 1{puff} BID Advair Diskus Diskus Diskus 100-50 100-50 100-50 MCG/DOSE MCG/DOSE MCG/DOSE Albuterol Albuterol No 1{puff_ 6xD Albuterol Sulfate HFA Sulfate HFA as_need Sulfate 108 (90 108 (90 ed} HFA 108 Base) Base) (90 Base) MCG/ACT MCG/ACT MCG/ACT Anoro Anoro No 1{puff} QD Anoro Ellipta Ellipta Ellipta 62.5mcg/25 62.5mcg/25 62.5mcg/25 mcg mcg mcg Aspirin 81 Aspirin 81 No 1{table QD Aspirin 81 81 MG 81 MG t} 81 MG Toprol XL Toprol XL No 1{table BID Toprol XL 50 MG 50 MG t} 50 MG Pantoprazol Pantoprazol No Pantoprazo e Sodium 40 e Sodium 40 le Sodium MG MG 40 MG Atorvastati Atorvastati No Atorvastat n Calcium n Calcium in Calcium 80 MG 80 MG 80 MG Fluticasone Fluticasone No 1{spray QD Fluticason Propionate Propionate _in_eac e 50 MCG/ACT 50 MCG/ACT h_nostr Propionate il} 50 MCG/ACT Advair Advair No 1{puff} BID Advair Diskus Diskus Diskus 100-50 100-50 100-50 MCG/DOSE MCG/DOSE MCG/DOSE Albuterol Albuterol No 1{puff_ 6xD Albuterol Sulfate HFA Sulfate HFA as_need Sulfate 108 (90 108 (90 ed} HFA 108 Base) Base) (90 Base) MCG/ACT MCG/ACT MCG/ACT Anoro Anoro No 1{puff} QD Anoro Ellipta Ellipta Ellipta 62.5mcg/25 62.5mcg/25 62.5mcg/25 mcg mcg mcg Aspirin 81 Aspirin 81 No 1{table QD Aspirin 81 81 MG 81 MG t} 81 MG Toprol XL Toprol XL No 1{table BID Toprol XL 50 MG 50 MG t} 50 MG Pantoprazol Pantoprazol No Pantoprazo e Sodium 40 e Sodium 40 le Sodium MG MG 40 MG Atorvastati Atorvastati No Atorvastat n Calcium n Calcium in Calcium 80 MG 80 MG 80 MG Fluticasone Fluticasone No 1{spray QD Fluticason Propionate Propionate _in_eac e 50 MCG/ACT 50 MCG/ACT h_nostr Propionate il} 50 MCG/ACT Toprol XL Toprol XL No 1{table BID Toprol XL 50 MG 50 MG t} 50 MG Lipitor 80 Lipitor 80 No 1{table QD Lipitor 80 MG MG t} MG Protonix 40 Protonix 40 No 1{table QD Protonix MG MG t} 40 MG Advair Advair No 1{puff} BID Advair Diskus Diskus Diskus 100-50 100-50 100-50 MCG/DOSE MCG/DOSE MCG/DOSE Aspirin 81 Aspirin 81 No 1{table QD Aspirin 81 81 MG 81 MG t} 81 MG Pantoprazol Pantoprazol No Pantoprazo e Sodium 40 e Sodium 40 le Sodium MG MG 40 MG Fluticasone Fluticasone No 1{spray QD Fluticason Propionate Propionate _in_eac e 50 MCG/ACT 50 MCG/ACT h_nostr Propionate il} 50 MCG/ACT Albuterol Albuterol No 1{puff_ 6xD Albuterol Sulfate HFA Sulfate HFA as_need Sulfate 108 (90 108 (90 ed} HFA 108 Base) Base) (90 Base) MCG/ACT MCG/ACT MCG/ACT Anoro Anoro No 1{puff} QD Anoro Ellipta Ellipta Ellipta 62.5mcg/25 62.5mcg/25 62.5mcg/25 mcg mcg mcg Atorvastati Atorvastati No Atorvastat n Calcium n Calcium in Calcium 80 MG 80 MG 80 MG Anoro Anoro No 1{puff} QD Anoro Ellipta Ellipta Ellipta 62.5mcg/25 62.5mcg/25 62.5mcg/25 mcg mcg mcg Aspirin 81 Aspirin 81 No 1{table QD Aspirin 81 81 MG 81 MG t} 81 MG Lipitor 80 Lipitor 80 No 1{table QD Lipitor 80 MG MG t} MG Protonix 40 Protonix 40 No 1{table QD Protonix MG MG t} 40 MG Atorvastati Atorvastati No Atorvastat n Calcium n Calcium in Calcium 80 MG 80 MG 80 MG Pantoprazol Pantoprazol No Pantoprazo e Sodium 40 e Sodium 40 le Sodium MG MG 40 MG Toprol XL Toprol XL No 1{table BID Toprol XL 50 MG 50 MG t} 50 MG Albuterol Albuterol No 1{puff_ 6xD Albuterol Sulfate HFA Sulfate HFA as_need Sulfate 108 (90 108 (90 ed} HFA 108 Base) Base) (90 Base) MCG/ACT MCG/ACT MCG/ACT Fluticasone Fluticasone No 1{spray QD Fluticason Propionate Propionate _in_eac e 50 MCG/ACT 50 MCG/ACT h_nostr Propionate il} 50 MCG/ACT Advair Advair No 1{puff} BID Advair Diskus Diskus Diskus 100-50 100-50 100-50 MCG/DOSE MCG/DOSE MCG/DOSE Anoro Anoro No 1{puff} QD Anoro Ellipta Ellipta Ellipta 62.5mcg/25 62.5mcg/25 62.5mcg/25 mcg mcg mcg Aspirin 81 Aspirin 81 No 1{table QD Aspirin 81 81 MG 81 MG t} 81 MG Lipitor 80 Lipitor 80 No 1{table QD Lipitor 80 MG MG t} MG Protonix 40 Protonix 40 No 1{table QD Protonix MG MG t} 40 MG Atorvastati Atorvastati No Atorvastat n Calcium n Calcium in Calcium 80 MG 80 MG 80 MG Pantoprazol Pantoprazol No Pantoprazo e Sodium 40 e Sodium 40 le Sodium MG MG 40 MG Toprol XL Toprol XL No 1{table BID Toprol XL 50 MG 50 MG t} 50 MG Albuterol Albuterol No 1{puff_ 6xD Albuterol Sulfate HFA Sulfate HFA as_need Sulfate 108 (90 108 (90 ed} HFA 108 Base) Base) (90 Base) MCG/ACT MCG/ACT MCG/ACT Fluticasone Fluticasone No 1{spray QD Fluticason Propionate Propionate _in_eac e 50 MCG/ACT 50 MCG/ACT h_nostr Propionate il} 50 MCG/ACT Advair Advair No 1{puff} BID Advair Diskus Diskus Diskus 100-50 100-50 100-50 MCG/DOSE MCG/DOSE MCG/DOSE Anoro Anoro No 1{puff} QD Anoro Ellipta Ellipta Ellipta 62.5mcg/25 62.5mcg/25 62.5mcg/25 mcg mcg mcg Lipitor 80 Lipitor 80 No 1{table QD Lipitor 80 MG MG t} MG Toprol XL Toprol XL No 1{table BID Toprol XL 50 MG 50 MG t} 50 MG Advair Advair No 1{puff} BID Advair Diskus Diskus Diskus 100-50 100-50 100-50 MCG/DOSE MCG/DOSE MCG/DOSE Atorvastati Atorvastati No Atorvastat n Calcium n Calcium in Calcium 80 MG 80 MG 80 MG Protonix 40 Protonix 40 No 1{table QD Protonix MG MG t} 40 MG Fluticasone Fluticasone No 1{spray QD Fluticason Propionate Propionate _in_eac e 50 MCG/ACT 50 MCG/ACT h_nostr Propionate il} 50 MCG/ACT Albuterol Albuterol No 1{puff_ 6xD Albuterol Sulfate HFA Sulfate HFA as_need Sulfate 108 (90 108 (90 ed} HFA 108 Base) Base) (90 Base) MCG/ACT MCG/ACT MCG/ACT Pantoprazol Pantoprazol No Pantoprazo e Sodium 40 e Sodium 40 le Sodium MG MG 40 MG Aspirin 81 Aspirin 81 No 1{table QD Aspirin 81 81 MG 81 MG t} 81 MG Anoro Anoro No 1{puff} QD Anoro Ellipta Ellipta Ellipta 62.5mcg/25 62.5mcg/25 62.5mcg/25 mcg mcg mcg Lipitor 80 Lipitor 80 No 1{table QD Lipitor 80 MG MG t} MG Toprol XL Toprol XL No 1{table BID Toprol XL 50 MG 50 MG t} 50 MG Advair Advair No 1{puff} BID Advair Diskus Diskus Diskus 100-50 100-50 100-50 MCG/DOSE MCG/DOSE MCG/DOSE Atorvastati Atorvastati No Atorvastat n Calcium n Calcium in Calcium 80 MG 80 MG 80 MG Protonix 40 Protonix 40 No 1{table QD Protonix MG MG t} 40 MG Fluticasone Fluticasone No 1{spray QD Fluticason Propionate Propionate _in_eac e 50 MCG/ACT 50 MCG/ACT h_nostr Propionate il} 50 MCG/ACT Albuterol Albuterol No 1{puff_ 6xD Albuterol Sulfate HFA Sulfate HFA as_need Sulfate 108 (90 108 (90 ed} HFA 108 Base) Base) (90 Base) MCG/ACT MCG/ACT MCG/ACT Pantoprazol Pantoprazol No Pantoprazo e Sodium 40 e Sodium 40 le Sodium MG MG 40 MG Aspirin 81 Aspirin 81 No 1{table QD Aspirin 81 81 MG 81 MG t} 81 MG Atorvastati Atorvastati No Atorvastat n Calcium n Calcium in Calcium 80 MG 80 MG 80 MG Fluticasone Fluticasone No 1{spray QD Fluticason Propionate Propionate _in_eac e 50 MCG/ACT 50 MCG/ACT h_nostr Propionate il} 50 MCG/ACT Anoro Anoro No 1{puff} QD Anoro Ellipta Ellipta Ellipta 62.5mcg/25 62.5mcg/25 62.5mcg/25 mcg mcg mcg Albuterol Albuterol No 1{puff_ 6xD Albuterol Sulfate HFA Sulfate HFA as_need Sulfate 108 (90 108 (90 ed} HFA 108 Base) Base) (90 Base) MCG/ACT MCG/ACT MCG/ACT Lipitor 80 Lipitor 80 No 1{table QD Lipitor 80 MG MG t} MG Protonix 40 Protonix 40 No 1{table QD Protonix MG MG t} 40 MG Pantoprazol Pantoprazol No Pantoprazo e Sodium 40 e Sodium 40 le Sodium MG MG 40 MG Advair Advair No 1{puff} BID Advair Diskus Diskus Diskus 100-50 100-50 100-50 MCG/DOSE MCG/DOSE MCG/DOSE Toprol XL Toprol XL No 1{table BID Toprol XL 50 MG 50 MG t} 50 MG Aspirin 81 Aspirin 81 No 1{table QD Aspirin 81 81 MG 81 MG t} 81 MG Atorvastati Atorvastati No Atorvastat n Calcium n Calcium in Calcium 80 MG 80 MG 80 MG Fluticasone Fluticasone No 1{spray QD Fluticason Propionate Propionate _in_eac e 50 MCG/ACT 50 MCG/ACT h_nostr Propionate il} 50 MCG/ACT Anoro Anoro No 1{puff} QD Anoro Ellipta Ellipta Ellipta 62.5mcg/25 62.5mcg/25 62.5mcg/25 mcg mcg mcg Albuterol Albuterol No 1{puff_ 6xD Albuterol Sulfate HFA Sulfate HFA as_need Sulfate 108 (90 108 (90 ed} HFA 108 Base) Base) (90 Base) MCG/ACT MCG/ACT MCG/ACT Lipitor 80 Lipitor 80 No 1{table QD Lipitor 80 MG MG t} MG Protonix 40 Protonix 40 No 1{table QD Protonix MG MG t} 40 MG Pantoprazol Pantoprazol No Pantoprazo e Sodium 40 e Sodium 40 le Sodium MG MG 40 MG Advair Advair No 1{puff} BID Advair Diskus Diskus Diskus 100-50 100-50 100-50 MCG/DOSE MCG/DOSE MCG/DOSE Toprol XL Toprol XL No 1{table BID Toprol XL 50 MG 50 MG t} 50 MG Aspirin 81 Aspirin 81 No 1{table QD Aspirin 81 81 MG 81 MG t} 81 MG Advair Advair No 1{puff} BID Advair Diskus Diskus Diskus 100-50 100-50 100-50 MCG/DOSE MCG/DOSE MCG/DOSE Atorvastati Atorvastati No Atorvastat n Calcium n Calcium in Calcium 80 MG 80 MG 80 MG Anoro Anoro No 1{puff} QD Anoro Ellipta Ellipta Ellipta 62.5mcg/25 62.5mcg/25 62.5mcg/25 mcg mcg mcg Albuterol Albuterol No 1{puff_ 6xD Albuterol Sulfate HFA Sulfate HFA as_need Sulfate 108 (90 108 (90 ed} HFA 108 Base) Base) (90 Base) MCG/ACT MCG/ACT MCG/ACT Lipitor 80 Lipitor 80 No 1{table QD Lipitor 80 MG MG t} MG Fluticasone Fluticasone No 1{spray QD Fluticason Propionate Propionate _in_eac e 50 MCG/ACT 50 MCG/ACT h_nostr Propionate il} 50 MCG/ACT Aspirin 81 Aspirin 81 No 1{table QD Aspirin 81 81 MG 81 MG t} 81 MG Toprol XL Toprol XL No 1{table BID Toprol XL 50 MG 50 MG t} 50 MG Protonix 40 Protonix 40 No 1{table QD Protonix MG MG t} 40 MG Pantoprazol Pantoprazol No Pantoprazo e Sodium 40 e Sodium 40 le Sodium MG MG 40 MG Advair Advair No 1{puff} BID Advair Diskus Diskus Diskus 100-50 100-50 100-50 MCG/DOSE MCG/DOSE MCG/DOSE Atorvastati Atorvastati No Atorvastat n Calcium n Calcium in Calcium 80 MG 80 MG 80 MG Anoro Anoro No 1{puff} QD Anoro Ellipta Ellipta Ellipta 62.5mcg/25 62.5mcg/25 62.5mcg/25 mcg mcg mcg Albuterol Albuterol No 1{puff_ 6xD Albuterol Sulfate HFA Sulfate HFA as_need Sulfate 108 (90 108 (90 ed} HFA 108 Base) Base) (90 Base) MCG/ACT MCG/ACT MCG/ACT Lipitor 80 Lipitor 80 No 1{table QD Lipitor 80 MG MG t} MG Fluticasone Fluticasone No 1{spray QD Fluticason Propionate Propionate _in_eac e 50 MCG/ACT 50 MCG/ACT h_nostr Propionate il} 50 MCG/ACT Aspirin 81 Aspirin 81 No 1{table QD Aspirin 81 81 MG 81 MG t} 81 MG Toprol XL Toprol XL No 1{table BID Toprol XL 50 MG 50 MG t} 50 MG Protonix 40 Protonix 40 No 1{table QD Protonix MG MG t} 40 MG Pantoprazol Pantoprazol No Pantoprazo e Sodium 40 e Sodium 40 le Sodium MG MG 40 MG Advair Advair No 1{puff} BID Advair Diskus Diskus Diskus 100-50 100-50 100-50 MCG/DOSE MCG/DOSE MCG/DOSE Atorvastati Atorvastati No Atorvastat n Calcium n Calcium in Calcium 80 MG 80 MG 80 MG Anoro Anoro No 1{puff} QD Anoro Ellipta Ellipta Ellipta 62.5mcg/25 62.5mcg/25 62.5mcg/25 mcg mcg mcg Albuterol Albuterol No 1{puff_ 6xD Albuterol Sulfate HFA Sulfate HFA as_need Sulfate 108 (90 108 (90 ed} HFA 108 Base) Base) (90 Base) MCG/ACT MCG/ACT MCG/ACT Lipitor 80 Lipitor 80 No 1{table QD Lipitor 80 MG MG t} MG Fluticasone Fluticasone No 1{spray QD Fluticason Propionate Propionate _in_eac e 50 MCG/ACT 50 MCG/ACT h_nostr Propionate il} 50 MCG/ACT Aspirin 81 Aspirin 81 No 1{table QD Aspirin 81 81 MG 81 MG t} 81 MG Toprol XL Toprol XL No 1{table BID Toprol XL 50 MG 50 MG t} 50 MG Protonix 40 Protonix 40 No 1{table QD Protonix MG MG t} 40 MG Pantoprazol Pantoprazol No Pantoprazo e Sodium 40 e Sodium 40 le Sodium MG MG 40 MG Anoro Anoro No 1{puff} QD Anoro Ellipta Ellipta Ellipta 62.5mcg/25 62.5mcg/25 62.5mcg/25 mcg mcg mcg Toprol XL Toprol XL No 1{table BID Toprol XL 50 MG 50 MG t} 50 MG Protonix 40 Protonix 40 No 1{table QD Protonix MG MG t} 40 MG Pantoprazol Pantoprazol No Pantoprazo e Sodium 40 e Sodium 40 le Sodium MG MG 40 MG Albuterol Albuterol No 1{puff_ 6xD Albuterol Sulfate HFA Sulfate HFA as_need Sulfate 108 (90 108 (90 ed} HFA 108 Base) Base) (90 Base) MCG/ACT MCG/ACT MCG/ACT Atorvastati Atorvastati No Atorvastat n Calcium n Calcium in Calcium 80 MG 80 MG 80 MG Aspirin 81 Aspirin 81 No 1{table QD Aspirin 81 81 MG 81 MG t} 81 MG Lipitor 80 Lipitor 80 No 1{table QD Lipitor 80 MG MG t} MG Advair Advair No 1{puff} BID Advair Diskus Diskus Diskus 100-50 100-50 100-50 MCG/DOSE MCG/DOSE MCG/DOSE Fluticasone Fluticasone No 1{spray QD Fluticason Propionate Propionate _in_eac e 50 MCG/ACT 50 MCG/ACT h_nostr Propionate il} 50 MCG/ACT Metoprolol Metoprolol No Metoprolol Succinate Succinate Succinate ER 50 MG ER 50 MG ER 50 MG Anoro Anoro No 1{puff} QD Anoro Ellipta Ellipta Ellipta 62.5mcg/25 62.5mcg/25 62.5mcg/25 mcg mcg mcg Toprol XL Toprol XL No 1{table BID Toprol XL 50 MG 50 MG t} 50 MG Protonix 40 Protonix 40 No 1{table QD Protonix MG MG t} 40 MG Pantoprazol Pantoprazol No Pantoprazo e Sodium 40 e Sodium 40 le Sodium MG MG 40 MG Albuterol Albuterol No 1{puff_ 6xD Albuterol Sulfate HFA Sulfate HFA as_need Sulfate 108 (90 108 (90 ed} HFA 108 Base) Base) (90 Base) MCG/ACT MCG/ACT MCG/ACT Atorvastati Atorvastati No Atorvastat n Calcium n Calcium in Calcium 80 MG 80 MG 80 MG Aspirin 81 Aspirin 81 No 1{table QD Aspirin 81 81 MG 81 MG t} 81 MG Lipitor 80 Lipitor 80 No 1{table QD Lipitor 80 MG MG t} MG Advair Advair No 1{puff} BID Advair Diskus Diskus Diskus 100-50 100-50 100-50 MCG/DOSE MCG/DOSE MCG/DOSE Fluticasone Fluticasone No 1{spray QD Fluticason Propionate Propionate _in_eac e 50 MCG/ACT 50 MCG/ACT h_nostr Propionate il} 50 MCG/ACT Metoprolol Metoprolol No Metoprolol Succinate Succinate Succinate ER 50 MG ER 50 MG ER 50 MG Anoro Anoro No 1{puff} QD Anoro Ellipta Ellipta Ellipta 62.5mcg/25 62.5mcg/25 62.5mcg/25 mcg mcg mcg Toprol XL Toprol XL No 1{table BID Toprol XL 50 MG 50 MG t} 50 MG Protonix 40 Protonix 40 No 1{table QD Protonix MG MG t} 40 MG Pantoprazol Pantoprazol No Pantoprazo e Sodium 40 e Sodium 40 le Sodium MG MG 40 MG Albuterol Albuterol No 1{puff_ 6xD Albuterol Sulfate HFA Sulfate HFA as_need Sulfate 108 (90 108 (90 ed} HFA 108 Base) Base) (90 Base) MCG/ACT MCG/ACT MCG/ACT Atorvastati Atorvastati No Atorvastat n Calcium n Calcium in Calcium 80 MG 80 MG 80 MG Aspirin 81 Aspirin 81 No 1{table QD Aspirin 81 81 MG 81 MG t} 81 MG Lipitor 80 Lipitor 80 No 1{table QD Lipitor 80 MG MG t} MG Advair Advair No 1{puff} BID Advair Diskus Diskus Diskus 100-50 100-50 100-50 MCG/DOSE MCG/DOSE MCG/DOSE Fluticasone Fluticasone No 1{spray QD Fluticason Propionate Propionate _in_eac e 50 MCG/ACT 50 MCG/ACT h_nostr Propionate il} 50 MCG/ACT Metoprolol Metoprolol No Metoprolol Succinate Succinate Succinate ER 50 MG ER 50 MG ER 50 MG Aspirin 81 Aspirin 81 No 1{table QD Aspirin 81 81 MG 81 MG t} 81 MG Albuterol Albuterol No 1{puff_ 6xD Albuterol Sulfate HFA Sulfate HFA as_need Sulfate 108 (90 108 (90 ed} HFA 108 Base) Base) (90 Base) MCG/ACT MCG/ACT MCG/ACT Pantoprazol Pantoprazol No Pantoprazo e Sodium 40 e Sodium 40 le Sodium MG MG 40 MG Anoro Anoro No 1{puff} QD Anoro Ellipta Ellipta Ellipta 62.5mcg/25 62.5mcg/25 62.5mcg/25 mcg mcg mcg Advair Advair No 1{puff} BID Advair Diskus Diskus Diskus 100-50 100-50 100-50 MCG/DOSE MCG/DOSE MCG/DOSE Metoprolol Metoprolol No Metoprolol Succinate Succinate Succinate ER 50 MG ER 50 MG ER 50 MG Toprol XL Toprol XL No 1{table BID Toprol XL 50 MG 50 MG t} 50 MG Fluticasone Fluticasone No 1{spray QD Fluticason Propionate Propionate _in_eac e 50 MCG/ACT 50 MCG/ACT h_nostr Propionate il} 50 MCG/ACT Atorvastati Atorvastati No Atorvastat n Calcium n Calcium in Calcium 80 MG 80 MG 80 MG Metoprolol Metoprolol No 1{table BID Metoprolol Succinate Succinate t} Succinate ER 50 MG ER 50 MG ER 50 MG Protonix 40 Protonix 40 No 1{table QD Protonix MG MG t} 40 MG Lipitor 80 Lipitor 80 No 1{table QD Lipitor 80 MG MG t} MG Toprol XL Toprol XL No 1{table BID Toprol XL 50 MG 50 MG t} 50 MG Aspirin 81 Aspirin 81 No 1{table QD Aspirin 81 81 MG 81 MG t} 81 MG Pantoprazol Pantoprazol No Pantoprazo e Sodium 40 e Sodium 40 le Sodium MG MG 40 MG Albuterol Albuterol No 1{puff_ 6xD Albuterol Sulfate HFA Sulfate HFA as_need Sulfate 108 (90 108 (90 ed} HFA 108 Base) Base) (90 Base) MCG/ACT MCG/ACT MCG/ACT Anoro Anoro No 1{puff} QD Anoro Ellipta Ellipta Ellipta 62.5mcg/25 62.5mcg/25 62.5mcg/25 mcg mcg mcg Fluticasone Fluticasone No 1{spray QD Fluticason Propionate Propionate _in_eac e 50 MCG/ACT 50 MCG/ACT h_nostr Propionate il} 50 MCG/ACT Atorvastati Atorvastati No Atorvastat n Calcium n Calcium in Calcium 80 MG 80 MG 80 MG Advair Advair No 1{puff} BID Advair Diskus Diskus Diskus 100-50 100-50 100-50 MCG/DOSE MCG/DOSE MCG/DOSE Metoprolol Metoprolol No 1{table BID Metoprolol Succinate Succinate t} Succinate ER 50 MG ER 50 MG ER 50 MG Toprol XL Toprol XL No 1{table BID Toprol XL 50 MG 50 MG t} 50 MG Aspirin 81 Aspirin 81 No 1{table QD Aspirin 81 81 MG 81 MG t} 81 MG Pantoprazol Pantoprazol No Pantoprazo e Sodium 40 e Sodium 40 le Sodium MG MG 40 MG Albuterol Albuterol No 1{puff_ 6xD Albuterol Sulfate HFA Sulfate HFA as_need Sulfate 108 (90 108 (90 ed} HFA 108 Base) Base) (90 Base) MCG/ACT MCG/ACT MCG/ACT Anoro Anoro No 1{puff} QD Anoro Ellipta Ellipta Ellipta 62.5mcg/25 62.5mcg/25 62.5mcg/25 mcg mcg mcg Fluticasone Fluticasone No 1{spray QD Fluticason Propionate Propionate _in_eac e 50 MCG/ACT 50 MCG/ACT h_nostr Propionate il} 50 MCG/ACT Atorvastati Atorvastati No Atorvastat n Calcium n Calcium in Calcium 80 MG 80 MG 80 MG Advair Advair No 1{puff} BID Advair Diskus Diskus Diskus 100-50 100-50 100-50 MCG/DOSE MCG/DOSE MCG/DOSE Metoprolol Metoprolol No 1{table BID Metoprolol Succinate Succinate t} Succinate ER 50 MG ER 50 MG ER 50 MG Metoprolol Metoprolol No 1{table BID Metoprolol Succinate Succinate t} Succinate ER 50 MG ER 50 MG ER 50 MG Aspirin 81 Aspirin 81 No 1{table QD Aspirin 81 81 MG 81 MG t} 81 MG Tamsulosin Tamsulosin No 1{capsu QD Tamsulosin HCl 0.4 MG HCl 0.4 MG le} HCl 0.4 MG Finasteride Finasteride No Finasterid e Toprol XL Toprol XL No 1{table BID Toprol XL 50 MG 50 MG t} 50 MG Albuterol Albuterol No 1{puff_ 6xD Albuterol Sulfate HFA Sulfate HFA as_need Sulfate 108 (90 108 (90 ed} HFA 108 Base) Base) (90 Base) MCG/ACT MCG/ACT MCG/ACT Fluticasone Fluticasone No 1{spray QD Fluticason Propionate Propionate _in_eac e 50 MCG/ACT 50 MCG/ACT h_nostr Propionate il} 50 MCG/ACT Protonix 40 Protonix 40 No 1{table QD Protonix MG MG t} 40 MG Atorvastati Atorvastati No Atorvastat n Calcium n Calcium in Calcium 80 MG 80 MG 80 MG Pantoprazol Pantoprazol No Pantoprazo e Sodium 40 e Sodium 40 le Sodium MG MG 40 MG Anoro Anoro No 1{puff} QD Anoro Ellipta Ellipta Ellipta 62.5mcg/25 62.5mcg/25 62.5mcg/25 mcg mcg mcg Advair Advair No 1{puff} BID Advair Diskus Diskus Diskus 100-50 100-50 100-50 MCG/DOSE MCG/DOSE MCG/DOSE Lipitor 80 Lipitor 80 No 1{table QD Lipitor 80 MG MG t} MG Metoprolol Metoprolol No 1{table BID Metoprolol Succinate Succinate t} Succinate ER 50 MG ER 50 MG ER 50 MG Aspirin 81 Aspirin 81 No 1{table QD Aspirin 81 81 MG 81 MG t} 81 MG Tamsulosin Tamsulosin No 1{capsu QD Tamsulosin HCl 0.4 MG HCl 0.4 MG le} HCl 0.4 MG Finasteride Finasteride No Finasterid e Toprol XL Toprol XL No 1{table BID Toprol XL 50 MG 50 MG t} 50 MG Albuterol Albuterol No 1{puff_ 6xD Albuterol Sulfate HFA Sulfate HFA as_need Sulfate 108 (90 108 (90 ed} HFA 108 Base) Base) (90 Base) MCG/ACT MCG/ACT MCG/ACT Fluticasone Fluticasone No 1{spray QD Fluticason Propionate Propionate _in_eac e 50 MCG/ACT 50 MCG/ACT h_nostr Propionate il} 50 MCG/ACT Protonix 40 Protonix 40 No 1{table QD Protonix MG MG t} 40 MG Atorvastati Atorvastati No Atorvastat n Calcium n Calcium in Calcium 80 MG 80 MG 80 MG Pantoprazol Pantoprazol No Pantoprazo e Sodium 40 e Sodium 40 le Sodium MG MG 40 MG Anoro Anoro No 1{puff} QD Anoro Ellipta Ellipta Ellipta 62.5mcg/25 62.5mcg/25 62.5mcg/25 mcg mcg mcg Advair Advair No 1{puff} BID Advair Diskus Diskus Diskus 100-50 100-50 100-50 MCG/DOSE MCG/DOSE MCG/DOSE Lipitor 80 Lipitor 80 No 1{table QD Lipitor 80 MG MG t} MG Metoprolol Metoprolol No 1{table BID Metoprolol Succinate Succinate t} Succinate ER 50 MG ER 50 MG ER 50 MG Aspirin 81 Aspirin 81 No 1{table QD Aspirin 81 81 MG 81 MG t} 81 MG Tamsulosin Tamsulosin No 1{capsu QD Tamsulosin HCl 0.4 MG HCl 0.4 MG le} HCl 0.4 MG Finasteride Finasteride No Finasterid e Toprol XL Toprol XL No 1{table BID Toprol XL 50 MG 50 MG t} 50 MG Albuterol Albuterol No 1{puff_ 6xD Albuterol Sulfate HFA Sulfate HFA as_need Sulfate 108 (90 108 (90 ed} HFA 108 Base) Base) (90 Base) MCG/ACT MCG/ACT MCG/ACT Fluticasone Fluticasone No 1{spray QD Fluticason Propionate Propionate _in_eac e 50 MCG/ACT 50 MCG/ACT h_nostr Propionate il} 50 MCG/ACT Protonix 40 Protonix 40 No 1{table QD Protonix MG MG t} 40 MG Atorvastati Atorvastati No Atorvastat n Calcium n Calcium in Calcium 80 MG 80 MG 80 MG Pantoprazol Pantoprazol No Pantoprazo e Sodium 40 e Sodium 40 le Sodium MG MG 40 MG Anoro Anoro No 1{puff} QD Anoro Ellipta Ellipta Ellipta 62.5mcg/25 62.5mcg/25 62.5mcg/25 mcg mcg mcg Advair Advair No 1{puff} BID Advair Diskus Diskus Diskus 100-50 100-50 100-50 MCG/DOSE MCG/DOSE MCG/DOSE Lipitor 80 Lipitor 80 No 1{table QD Lipitor 80 MG MG t} MG Albuterol Albuterol No 1{puff_ 6xD Albuterol Sulfate HFA Sulfate HFA as_need Sulfate 108 (90 108 (90 ed} HFA 108 Base) Base) (90 Base) MCG/ACT MCG/ACT MCG/ACT Advair Advair No 1{puff} BID Advair Diskus Diskus Diskus 100-50 100-50 100-50 MCG/DOSE MCG/DOSE MCG/DOSE Toprol XL Toprol XL No 1{table BID Toprol XL 50 MG 50 MG t} 50 MG Protonix 40 Protonix 40 No 1{table QD Protonix MG MG t} 40 MG Anoro Anoro No 1{puff} QD Anoro Ellipta Ellipta Ellipta 62.5mcg/25 62.5mcg/25 62.5mcg/25 mcg mcg mcg Fluticasone Fluticasone No 1{spray QD Fluticason Propionate Propionate _in_eac e 50 MCG/ACT 50 MCG/ACT h_nostr Propionate il} 50 MCG/ACT Lipitor 80 Lipitor 80 No 1{table QD Lipitor 80 MG MG t} MG Aspirin 81 Aspirin 81 No 1{table QD Aspirin 81 81 MG 81 MG t} 81 MG Advair Advair No 1{puff} BID Advair Diskus Diskus Diskus 100-50 100-50 100-50 MCG/DOSE MCG/DOSE MCG/DOSE Albuterol Albuterol No 1{puff_ 6xD Albuterol Sulfate HFA Sulfate HFA as_need Sulfate 108 (90 108 (90 ed} HFA 108 Base) Base) (90 Base) MCG/ACT MCG/ACT MCG/ACT Fluticasone Fluticasone No 1{spray QD Fluticason Propionate Propionate _in_eac e 50 MCG/ACT 50 MCG/ACT h_nostr Propionate il} 50 MCG/ACT Protonix 40 Protonix 40 No 1{table QD Protonix MG MG t} 40 MG Toprol XL Toprol XL No 1{table BID Toprol XL 50 MG 50 MG t} 50 MG Lipitor 80 Lipitor 80 No 1{table QD Lipitor 80 MG MG t} MG Aspirin 81 Aspirin 81 No 1{table QD Aspirin 81 81 MG 81 MG t} 81 MG Anoro Anoro No 1{puff} QD Anoro Ellipta Ellipta Ellipta 62.5mcg/25 62.5mcg/25 62.5mcg/25 mcg mcg mcg Immunizations Ordered Filled Immunization Date Status Comments Sourc e Immunization Name Name [facility]19 Moderna COVID-19 2021-03-03 Completed [facility] Vacc[facility] Vaccine 10:01:00 [facility] Moderna COVID-19 Moderna COVID-19 2021-03-03 Completed [facility] Vaccine Vaccine 10:01:00 [facility] Moderna COVID-19 Moderna COVID-19 2021-03-03 Completed [facility] Vaccine Vaccine 10:01:00 [facility] Moderna COVID-19 Moderna COVID-19 2021-03-03 Completed [facility] - Vaccine Vaccine 10:01:00 [facility] Moderna COVID-19 Moderna COVID-19 2021-03-03 Completed [facility] Vaccine Vaccine 10:01:00 [facility] Moderna COVID-19 Moderna COVID-19 2021-03-03 Completed [facility] - Vaccine Vaccine 10:01:00 [facility] Moderna COVID-19 Moderna COVID-19 2021-03-03 Completed [facility] - Vaccine Vaccine 10:01:00 [facility] Moderna COVID-19 Moderna COVID-19 2021-03-03 Completed [facility] - Vaccine Vaccine 10:01:00 [facility] Moderna COVID-19 Moderna COVID-19 2021-03-03 Completed [facility] - Vaccine Vaccine 10:01:00 [facility] Moderna COVID-19 Moderna COVID-19 2021-03-03 Completed [facility] - Vaccine Vaccine 10:01:00 [facility] Moderna COVID-19 Moderna COVID-19 2021-03-03 Completed [facility] - Vaccine Vaccine 10:01:00 [facility] Moderna COVID-19 Moderna COVID-19 2021-03-03 Completed [facility] - Vaccine Vaccine 10:01:00 [facility] Moderna COVID-19 Moderna COVID-19 2021-03-03 Completed [facility] - Vaccine Vaccine 10:01:00 [facility] Moderna COVID-19 Moderna COVID-19 2021-03-03 Completed [facility] - Vaccine Vaccine 10:01:00 [facility] Moderna COVID-19 Moderna COVID-19 2021-03-03 Completed [facility] - Vaccine Vaccine 10:01:00 [facility] Moderna COVID-19 Moderna COVID-19 2021-03-03 Completed [facility] - Vaccine Vaccine 10:01:00 [facility] Moderna COVID-19 Moderna COVID-19 2021-03-03 Completed [facility] - Vaccine Vaccine 10:01:00 [facility] Moderna COVID-19 Moderna COVID-19 2021-03-03 Completed [facility] - Vaccine Vaccine 10:01:00 [facility] Moderna COVID-19 Moderna COVID-19 2021-03-03 Completed [facility] - Vaccine Vaccine 10:01:00 [facility] Moderna COVID-19 Moderna COVID-19 2021-03-03 Completed [facility] - Vaccine Vaccine 10:01:00 [facility] Moderna COVID-19 Moderna COVID-19 2021-03-03 Completed [facility] - Vaccine Vaccine 10:01:00 [facility] Moderna COVID-19 Moderna COVID-19 2021-03-03 Completed [facility] - Vaccine Vaccine 10:01:00 [facility] Moderna COVID-19 Moderna COVID-19 2021-03-03 Completed [facility] - Vaccine Vaccine 10:01:00 [facility] Moderna COVID-19 Moderna COVID-19 2021-01-27 Completed [facility] - Vaccine Vaccine 11:15:00 [facility] Moderna COVID-19 Moderna COVID-19 2021-01-27 Completed [facility] - Vaccine Vaccine 11:15:00 [facility] Moderna COVID-19 Moderna COVID-19 2021-01-27 Completed [facility] - Vaccine Vaccine 11:15:00 [facility] Moderna COVID-19 Moderna COVID-19 2021-01-27 Completed [facility] Vaccine Vaccine 11:15:00 [facility] Moderna COVID-19 Moderna COVID-19 2021-01-27 Completed [facility] - Vaccine Vaccine 11:15:00 [facility] Moderna COVID-19 Moderna COVID-19 2021-01-27 Completed [facility] - Vaccine Vaccine 11:15:00 [facility] Moderna COVID-19 Moderna COVID-19 2021-01-27 Completed [facility] Vaccine Vaccine 11:15:00 [facility] Moderna COVID-19 Moderna COVID-19 2021-01-27 Completed [facility] - Vaccine Vaccine 11:15:00 [facility] Moderna COVID-19 Moderna COVID-19 2021-01-27 Completed [facility] Vaccine Vaccine 11:15:00 [facility] Moderna COVID-19 Moderna COVID-19 2021-01-27 Completed [facility] - Vaccine Vaccine 11:15:00 [facility] Moderna COVID-19 Moderna COVID-19 2021-01-27 Completed [facility] - Vaccine Vaccine 11:15:00 [facility] Moderna COVID-19 Moderna COVID-19 2021-01-27 Completed [facility] Vaccine Vaccine 11:15:00 [facility] Moderna COVID-19 Moderna COVID-19 2021-01-27 Completed [facility] - Vaccine Vaccine 11:15:00 [facility] Moderna COVID-19 Moderna COVID-19 2021-01-27 Completed [facility] - Vaccine Vaccine 11:15:00 [facility] Moderna COVID-19 Moderna COVID-19 2021-01-27 Completed [facility] - Vaccine Vaccine 11:15:00 [facility] Moderna COVID-19 Moderna COVID-19 2021-01-27 Completed [facility] - Vaccine Vaccine 11:15:00 [facility] Moderna COVID-19 Moderna COVID-19 2021-01-27 Completed [facility] - Vaccine Vaccine 11:15:00 [facility] Moderna COVID-19 Moderna COVID-19 2021-01-27 Completed [facility] - Vaccine Vaccine 11:15:00 [facility] Moderna COVID-19 Moderna COVID-19 2021-01-27 Completed [facility] - Vaccine Vaccine 11:15:00 [facility] Moderna COVID-19 Moderna COVID-19 2021-01-27 Completed [facility] - Vaccine Vaccine 11:15:00 [facility] Moderna COVID-19 Moderna COVID-19 2021-01-27 Completed [facility] - Vaccine Vaccine 11:15:00 [facility] Moderna COVID-19 Moderna COVID-19 2021-01-27 Completed [facility] - Vaccine Vaccine 11:15:00 [facility] Moderna COVID-19 Moderna COVID-19 2021-01-27 Completed [facility] - Vaccine Vaccine 11:15:00 [facility] Moderna COVID-19 Moderna COVID-19 2021-01-27 Completed [facility] - Vaccine Vaccine 11:15:00 [facility] Moderna COVID-19 Moderna COVID-19 2021-01-27 Completed [facility] - Vaccine Vaccine 11:15:00 [facility] Moderna COVID-19 Moderna COVID-19 2021-01-27 Completed [facility] Vacc[facility] Vaccine 11:15:00 [facility] Tetanus/Diptheria 2015-03-17 Completed [facility] Vital Signs Vital Name Observation Time Observation Value Comments Source height 2022-05-23 10:30:00 68 [in_i] [facility] weight 2022-05-23 10:30:00 188.8 [lb_av] [facility] temperature 2022-05-23 10:30:00 97.2 [degF] [facility] bmi 2022-05-23 10:30:00 28.7 kg/m2 [facility] oximetry 2022-05-23 10:30:00 97 % [facility] respiratory rate 2022-05-23 10:30:00 17 /min [facility] blood pressure 2022-05-23 10:30:00 124 mm[Hg] [facility] - systolic [facility] blood pressure 2022-05-23 10:30:00 69 mm[Hg] [facility] - diastolic [facility] height 2022-02-26 13:40:00 68 [in_i] [facility] weight 2022-02-26 13:40:00 188.7 [lb_av] [facility] temperature 2022-02-26 13:40:00 97.9 [degF] [facility] bmi 2022-02-26 13:40:00 28.69 kg/m2 [facility] oximetry 2022-02-26 13:40:00 97 % [facility] respiratory rate 2022-02-26 13:40:00 17 /min [facility] on [facility] blood pressure 2022-02-26 13:40:00 139 mm[Hg] [facility] - systolic [facility] blood pressure 2022-02-26 13:40:00 70 mm[Hg] [facility] - diastolic [facility] height 2022-02-21 15:40:00 68 [in_i] [facility] weight 2022-02-21 15:40:00 191.2 [lb_av] [facility] temperature 2022-02-21 15:40:00 97.8 [degF] [facility] bmi 2022-02-21 15:40:00 29.07 kg/m2 [facility] oximetry 2022-02-21 15:40:00 97 % [facility] respiratory rate 2022-02-21 15:40:00 17 /min [facility] blood pressure 2022-02-21 15:40:00 134 mm[Hg] [facility] - systolic [facility] blood pressure 2022-02-21 15:40:00 82 mm[Hg] [facility] height 2022-02-13 13:00:00 68 [in_i] [facility] weight 2022-02-13 13:00:00 194.6 [lb_av] [facility] temperature 2022-02-13 13:00:00 97.9 [degF] [facility] bmi 2022-02-13 13:00:00 29.59 kg/m2 [facility] oximetry 2022-02-13 13:00:00 97 % [facility] respiratory rate 2022-02-13 13:00:00 17 /min Comm on [facility] blood pressure 2022-02-13 13:00:00 139 mm[Hg] Common [facility] - systolic [facility] blood pressure 2022-02-13 13:00:00 81 mm[Hg] Common [facility] - diastolic [facility] height 2021-11-09 13:30:00 68 [in_i] [facility] weight 2021-11-09 13:30:00 188.3 [lb_av] [facility] temperature 2021-11-09 13:30:00 98.0 [degF] [facility] bmi 2021-11-09 13:30:00 28.63 kg/m2 [facility] oximetry 2021-11-09 13:30:00 94 % [facility] respiratory rate 2021-11-09 13:30:00 16 /min Comm on [facility] blood pressure 2021-11-09 13:30:00 132 mm[Hg] [facility] blood pressure 2021-11-09 13:30:00 75 mm[Hg] Common [facility] - diastolic [facility] height 2021-11-09 13:00:00 68 [in_i] Common [facility] weight 2021-11-09 13:00:00 188.3 [lb_av] Common [facility] temperature 2021-11-09 13:00:00 98.0 [degF] [facility] bmi 2021-11-09 13:00:00 28.63 kg/m2 [facility] oximetry 2021-11-09 13:00:00 94 % [facility] respiratory rate 2021-11-09 13:00:00 16 /min Comm on [facility] blood pressure 2021-11-09 13:00:00 132 mm[Hg] [facility] systolic [facility] blood pressure 2021-11-09 13:00:00 75 mm[Hg] [facility] diastolic [facility] height 2021-10-04 13:40:00 68 [in_i] [facility] weight 2021-10-04 13:40:00 185 [lb_av] [facility] temperature 2021-10-04 13:40:00 97.7 [degF] [facility] bmi 2021-10-04 13:40:00 28.13 kg/m2 [facility] oximetry 2021-10-04 13:40:00 94 % [facility] height 2021-08-04 08:30:00 68 [in_i] [facility] weight 2021-08-04 08:30:00 194.6 [lb_av] [facility] temperature 2021-08-04 08:30:00 97.9 [degF] [facility] bmi 2021-08-04 08:30:00 29.59 kg/m2 [facility] oximetry 2021-08-04 08:30:00 96 % [facility] respiratory rate 2021-08-04 08:30:00 16 /min Comm on [facility] blood pressure 2021-08-04 08:30:00 135 mm[Hg] [facility] - systolic [facility] blood pressure 2021-08-04 08:30:00 76 mm[Hg] [facility] - diastolic [facility] height 2021-04-03 08:30:00 68 [in_i] Common [facility] weight 2021-04-03 08:30:00 186 [lb_av] [facility] temperature 2021-04-03 08:30:00 97 [degF] Common [facility] bmi 2021-04-03 08:30:00 28.28 kg/m2 [facility] blood pressure 2021-04-03 08:30:00 132 mm[Hg] Common [facility] - systolic [facility] blood pressure 2021-04-03 08:30:00 67 mm[Hg] Common [facility] - diastolic [facility] Procedures This patient has no known procedures. Plan of Care Planned Activity Planned Date Details Comments Source Future Scheduled 2022-07-03 COVID-19 VACCINE (#1) [facility] Test 12:55:57 [code = COVID-19 VACCINE (#1)] Future Scheduled 2022-07-03 65+ PNEUMOCOCCAL [facility] Test 12:55:57 VACCINE (1 - PCV) [code = 65+ PNEUMOCOCCAL VACCINE (1 - PCV)] Future Scheduled 2022-07-03 Hepatitis C screening [facility] Test 12:55:57 (procedure) [code = 740553526] Future Scheduled 2022-07-03 COLONOSCOPY SCREENING [facility] Test 12:55:57 [code = COLONOSCOPY SCREENING] Future Scheduled 2022-07-03 SHINGLES VACCINES (1 [facility] Test 12:55:57 of 2) [code = SHINGLES VACCINES (1 of 2)] Future Scheduled 2022-07-03 INFLUENZA VACCINE [facility] Test 12:55:57 [code = INFLUENZA VACCINE] Encounters Start End Encounter Admission Attending Care Care Encounter Source Date/Time Date/Time Type Type Clinicians Facility Department ID 2021-07-12 Outpatient Sarabjit STLMLC STLMLC [id number] Common 14:22:23 Cosme [id number] [facility] 2021-07-12 Outpatient Whipple, STLMLC STLMLC [id number] Common 14:01:04 Cosme [id number] [facility] 2021-07-12 Outpatient Whipple, STLMLC STLMLC [id number] Common 13:37:50 Cosme 91572 [facility] 2021-07-12 Outpatient Whipple, STLMLC STLMLC [id number] Common 13:15:50 Cosme 19585 [facility] 2021-07-12 Outpatient Whipple, STLMLC STLMLC [id number] Common 13:08:54 Cosme 9[address]92 [facility] 2021-07-12 Outpatient Whipple, STLMLC STLMLC [id number] Common 12:36:24 Cosme [id number] [facility] 2021-07-12 Outpatient Whipple, STLMLC STLMLC [id number] Common 12:35:51 Cosme 14888 [facility] 2021-07-12 Outpatient Whipple, STLMLC STLMLC [id number] Common 12:23:58 Cosme [id number] [facility] 2021-07-12 Outpatient Whipple, STLMLC STLMLC [id number] Common 12:22:55 Cosme [id number] [facility] 2021-07-12 Outpatient Coppola, Kin STLMLC STLMLC [id number] Common 12:07:08 [id number] [facility] 2021-04-13 Inpatient ALZWERI, [facility] [id number] Univers 12:06:34 PETER perry [facility] 2022-06-21 2022-06-21 (WEB) STLMLC STLMLC [id number] Co mmon 00:00:00 00:00:00 [facility] 2022-06-21 2022-06-21 (WEB) STLMLC STLMLC [id number] Co mmon 00:00:00 00:00:00 [facility] 2022-05-23 2022-05-23 OFFICE STLMLC STLMLC [id number] Co mmon 00:00:00 00:00:00 VISIT [facility] ESTAB PT - CHI LEVEL 4 [facility] 2022-02-26 2022-02-26 (WEB) STLMLC STLMLC [id number] Co mmon 00:00:00 00:00:00 [facility] 2022-02-26 2022-02-26 OFFICE STLMLC STLMLC [id number] Co mmon 00:00:00 00:00:00 VISIT EST Spir it PT LEVEL 3 - [facility] 2022-02-21 2022-02-21 OFFICE STLMLC STLMLC [id number] Co mmon 00:00:00 00:00:00 VISIT [facility] PT - CHI LEVEL 4 [facility] 2022-02-16 2022-02-16 (WEB) STLMLC STLMLC [id number] Co mmon 00:00:00 00:00:00 [facility] 2022-02-13 2022-02-13 OFFICE STLMLC STLMLC [id number] Co mmon 00:00:00 00:00:00 VISIT EST Spir it PT LEVEL 3 [facility] 2022-02-13 2022-02-13 (TEL) STLMLC STLMLC [id number] Co mmon 00:00:00 00:00:00 [facility] 2022-01-29 2022-01-29 (WEB) STLMLC STLMLC [id number] Co mmon 00:00:00 00:00:00 [facility] 2022-01-29 2022-01-29 (WEB) STLMLC STLMLC [id number] Co mmon 00:00:00 00:00:00 [facility] 2022-01-23 2022-01-23 (TEL) STLMLC STLMLC [id number] Co mmon 00:00:00 00:00:00 [facility] 2021-11-09 2021-11-09 OFFICE STLMLC STLMLC [id number] Co mmon 00:00:00 00:00:00 VISIT [facility] PT - CHI LEVEL 4 [facility] 2021-11-09 2021-11-09 SUB ANNUAL STLMLC STLMLC [id number] Common 00:00:00 00:00:00 MCR Spirit WELLNESS - CHI VISIT [facility] 2021-11-07 2021-11-07 (WEB) STLMLC STLMLC [id number] Co mmon 00:00:00 00:00:00 [facility] 2021-11-07 2021-11-07 (WEB) STLMLC STLMLC [id number] Co mmon 00:00:00 00:00:00 Spirit CHI [facility] 2021-10-04 2021-10-04 (WEB) STLMLC STLMLC [id number] Co mmon 00:00:00 00:00:00 [facility] 2021-10-04 2021-10-04 OFFICE STLMLC STLMLC [id number] Co mmon 00:00:00 00:00:00 VISIT EST Spir it PT LEVEL 3 - CHI [facility] 2021-08-04 2021-08-04 OFFICE STLMLC STLMLC [id number] Co mmon 00:00:00 00:00:00 VISIT [facility] ESTAB PT - CHI LEVEL 4 [facility] 2021-08-03 2021-08-03 (WEB) STLMLC STLMLC [id number] Co mmon 00:00:00 00:00:00 [facility] 2021-07-25 2021-07-25 (WEB) STLMLC STLMLC [id number] Co mmon 00:00:00 00:00:00 [facility] 2021-04-03 2021-04-03 OFFICE STLMLC STLMLC [id number] Co mmon 00:00:00 00:00:00 VISIT Spirit ESTAB PT - CHI LEVEL 4 [facility] 2021-03-03 2021-03-03 (COVID STLMLC STLMLC [id number] Co mmon 00:00:00 00:00:00 Inj) COVID Spi rit Injection - CHI [facility] 2021-02-24 2021-02-24 (TEL) STLMLC STLMLC [id number] Co mmon 00:00:00 00:00:00 [facility] 2021-02-24 2021-02-24 (WEB) STLMLC STLMLC [id number] Co mmon 00:00:00 00:00:00 [facility] 2021-02-23 2021-02-23 [facility] [id number] Univers 00:00:00 00:00:00 [place] [id number] [place] [id number] Shell Boyce [id number] [address] 2021-02-23 2021-02-23 (TEL) STLMLC STLMLC [id number] Co mmon 00:00:00 00:00:00 [facility] 2021-01-27 2021-01-27 Outpatient STLMLC STLMLC [id number] Common 00:00:00 00:00:00 [facility] 2021-01-18 2021-01-18 Outpatient STLMLC STLMLC [id number] Common 00:00:00 00:00:00 [facility] 2021-01-03 2021-01-03 Outpatient R GRAMM, [facility] [id number] Univers 00:00:00 00:00:00 [facility] 2020-12-07 2020-12-07 Outpatient R GRAMM, [facility] [id number] Univers 13:00:00 13:00:00 [facility] 2020-12-02 2020-12-02 Outpatient R GRAMM, [facility] [id number] Univers 12:45:00 12:45:00 [facility] 2020-12-02 2020-12-02 Outpatient STLMLC STLMLC [id number] Common 00:00:00 00:00:00 [facility] 2020-12-02 2020-12-02 Outpatient STLMLC STLMLC [id number] Common 00:00:00 00:00:00 [facility] 2020-10-12 2020-10-13 [id number] [place] 00:00:00 00:00:00 , GASPER [address] 2020-10-10 2020-10-10 Outpatient [facility]AR [facility] [id number] [place] 00:00:00 00:00:00 , GASPER [address] 2020-10-10 2020-10-10 Outpatient [facility]GAR [facility] [id number] [place] 00:00:00 00:00:00 , GASPER [address] 2020-10-10 2020-10-10 Outpatient [facility] [id number] [place] 00:00:00 00:00:00 , GASPER [address] 2020-10-10 2020-10-10 Outpatient [facility] [id number] [place] 00:00:00 00:00:00 , GASPER [address] 2020-10-10 2020-10-10 Outpatient [facility]AR [facility] [id number] [place] 00:00:00 00:00:00 , GASPER [address] 2020-09-20 2020-09-20 Outpatient [facility] [id number] [place] 00:00:00 00:00:00 , GASPER [address] 2020-09-05 2020-09-05 Outpatient R MALKA, [facility] [id number] Univers 13:00:00 13:00:00 [facility] 2020-08-29 2020-08-29 [facility] [id number] Univers 13:30:00 13:30:00 [facility] 2020-08-18 2020-08-18 Outpatient STLMLC STLMLC [id number] Common 00:00:00 00:00:00 [facility] 2020-05-30 2020-05-30 [facility] [id number] Univers 13:30:00 13:30:00 [facility] 2020-05-10 2020-05-10 Outpatient STLMLC STLMLC [id number] Common 00:00:00 00:00:00 [facility] 2020-05-06 2020-05-06 Outpatient STLMLC STLMLC [id number] Common 00:00:00 00:00:00 [facility] 2020-03-10 2020-03-10 Outpatient R FIDELIA [facility] [id number] Univers 16:00:00 16:00:00 PETER [facility] 2020-02-24 2020-02-24 Outpatient R [facility] [id number] Univers 10:00:00 10:00:00 [facility] 2020-01-11 2020-01-11 Outpatient R FIDELIA [facility] [id number] Univers 16:00:00 16:00:00 PETER [facility] 2020-01-11 2020-01-11 Outpatient R FIDELIA [facility] [id number] Univers 14:30:00 14:30:00 PETER ity [facility] 2019-12-07 2019-12-07 Outpatient R LESLIEDARNELL [facility] [id number] Univers 09:30:00 09:30:00 PETER ity [facility] 2019-11-19 2019-11-19 Outpatient R FIDELIA [facility] [id number] Univers 16:00:00 16:00:00 PETER ity [facility] 2019-10-29 2019-10-29 Outpatient R FIDELIA [facility] [id number] Univers 15:30:00 15:30:00 PETER ity [facility] 2019-10-26 2019-10-26 Outpatient R FIDELIA [facility] [id number] Univers 13:30:00 13:30:00 PETER ity [facility] 2019-10-15 2019-10-16 Outpatient R FIDELIA [facility] [id number] Univers 08:26:22 16:40:00 PETER ity of [facility] 2019-10-14 2019-10-14 Outpatient R [facility] [id number] Univers 10:00:00 10:00:00 [facility] 2019-10-14 2019-10-14 Outpatient R [facility] [id number] Univers 09:00:00 09:00:00 [facility] 2019-10-09 2019-10-09 Outpatient R FIDELIA [facility] [id number] Univers 11:15:00 11:15:00 [facility] 2019-09-28 Outpatient Tonja MISTRY [facility] [id number] Univers 09:45:00 09:45:00 [facility] 2019-09-16 2019-09-16 Outpatient R [facility] [id number] Univers 10:00:00 10:00:[facility] 2019-09-02 2019-09-02 Outpatient Adrienne-Mbayo VFP VFP [id number] [place] 04:03:00 04:03:00 _A_ [id number] [facility] 2019-08-26 2019-08-26 Outpatient FIDELIA [facility] [id number] Univers 00:00:00 00:00:00 [facility] 2019-08-17 2019-08-17 [facility] [id number] Univers 10:15:00 10:15:00 [facility] 2019-07-20 2019-07-20 Outpatient R FIDELIA [facility] [id number] Univers 09:00:00 10:32:29 [facility] 2019-06-22 2019-06-22 Outpatient Tonja MISTRY [facility] [id number] Univers 09:00:00 10:09:56 [facility] Results Test Description Test Time Test Comments Results Result Comments Source SARS-CoV-2 (COVID-19) RNA [Presence] in Respiratory sp ecimen by 2020-10-10 18:49:03 JOSSUE with probe detection Test Item Value Reference Range Interpretation Comme nts SARS-CoV-2 (COVID-19) RNA [Presence] in Respiratory Not detected No t-Detected specimen by JOSSUE with probe detection (test code = 22771-5) Whether patient is employed in a healthcare setting (test code = 30507-3) Whether the patient has symptoms related to condition of interest (test code = 29894-6) Patient was hospitalized because of this condition (test code = 94633-4) Whether the patient was admitted to intensive care unit (ICU) for condition of interest (test code = 84022-8) Whether patient resides in a congregate care setting (test code = 28051-8) IRINA QUINTANILLA
[2022-07-03 14:44] LABS: Absolute Lymphocytes (CBC) 2.2 K/uL (0.7-4.9); Hematocrit 51.1 % (39.6-49.0); Lymphocytes % 12.2 % (15.3-44.8); MPV 7.7 fL (7.6-11.3); RBC Red Blood Cell Count 5.74 M/uL (4.33-5.43)
[2022-07-03 15:03] LABS: Bilirubin Total 1.1 mg/dL (0.2-1.0); Potassium 3.9 mmol/L (3.5-5.1); Protein, Total 7.2 g/dL (6.4-8.2)
[2022-07-03] MEDS ORDERED: TRAMADOL HCL 50 MG TAB ONE (15:17)
[2022-07-03 15:31] LABS: Urine Bacteria 20-50 /HPF (<20); Urine RBC 21-50 /HPF (None Seen); Urine WBC Clump Many /HPF (None Seen)
[2022-07-03] MEDS ORDERED: CEFTRIAXONE 2000 MG/VIAL ONE (16:02)
--- NOTE | 2022-07-03 16:06 | ER ---
Nurse's Notes [facility] Name: Leslie Baires Age: 71 yrs Sex: Male : 1950 Arrival Date: 07/03/2022 Time: 13:44 Bed 16 Private MD: Diagnosis: UTI/ Urinary tract infection, site not specified Presentation: 07/03 13:47 Chief complaint: Patient states: "my pee campuzano when it comes out, I just had a UTI and aa5 finished my antibiotics and 3 days after I finished them I have the same symptoms". Pt also c/o bladder spasms. Coronavirus screen: At this time, the client does not indicate any symptoms associated with coronavirus-19. Ebola Screen: Patient denies travel to an Ebola-affected area in the 21 days before illness onset. Initial Sepsis Screen: Does the patient meet any 2 criteria? HR > 90 bpm. Does the patient have a suspected source of infection? Yes: Dysuria/Frequency/Urgency/UTI. Risk Assessment: Do you want to hurt yourself or someone else? Patient reports no desire to harm self or others. Onset of symptoms was June 2022. 13:47 Method Of Arrival: Ambulatory aa5 13:47 Acuity: ARIN 3 aa5 Historical: - Allergies: 13:48 Aleve; aa5 13:48 Vicodin; aa5 15:08 Hydrocodone-Acetaminophen; kc6 - PMHx: 13:48 BPH; chronic neck and back pain; Hypertension; Kidney stones; aa5 13:48 Myocardial infarction; Kidney problems; aa5 - PSHx: 13:48 heart stent (Right Coronary Artery); aa5 13:49 Skin cancer removed; TURP; aa5 - Immunization history:: Adult Immunizations unknown. - Social history:: Smoking status: Patient/guardian denies using tobacco. Screenin:20 [facility] ED Fall Risk Assessment (Adult) History of falling in the last 3 months, kc6 including since admission No falls in past 3 months (0 pts) Confusion or Disorientation No (0 pts) Intoxicated or Sedated No (0 pts) Impaired Gait No (0 pts) Mobility Assist Device Used No (0 pt) Altered Elimination No (0 pt) Score/Fall Risk Level 0 - 2 = Low Risk Oriented to surroundings, Maintained a safe environment, Educated pt \\T\\ family on fall prevention, incl call for assistance when getting out of bed, Assessed \\T\\ reinforced patient's understanding of fall precautions, Hourly rounding (assess needs \\T\\ fall precautionary measures) done. Abuse screen: Denies threats or abuse. Denies injuries from another. Nutritional screening: No deficits noted. Tuberculosis screening: No symptoms or risk factors identified. Assessment: 14:38 General: Appears in no apparent distress. comfortable, Behavior is calm, cooperative, kc6 appropriate for age. Pain: Complains of pain in left lower quadrant Pain does not radiate. Pain currently is 9 out of 10 on a pain scale. Quality of pain is described as burning, Is intermittent, Alleviated by nothing. Also complains of no other associated symptoms. Neuro: Peralta Agitation-Sedation Scale (RASS): 0 - Alert and Calm Level of Consciousness is awake, alert, obeys commands, Oriented to person, place, time, situation, Appropriate for age. Cardiovascular: Heart tones S1 S2 present Capillary refill < 3 seconds. Respiratory: Airway is patent Trachea midline Respiratory effort is even, unlabored, Respiratory pattern is regular, symmetrical, Breath sounds are clear bilaterally. GI: No signs and/or symptoms were reported involving the gastrointestinal system. : Reports burning with urination, urgency, urinary frequency. EENT: No signs and/or symptoms were reported regarding the EENT system. Derm: No signs and/or symptoms reported regarding the dermatologic system. Skin is intact, Skin is pink, warm \\T\\ dry. Musculoskeletal: No signs and/or symptoms reported regarding the musculoskeletal system. Circulation, motion, and sensation intact. Capillary refill < 3 seconds, Range of motion: intact in all extremities. 15:37 Reassessment: Patient appears in no apparent distress at this time. No changes from kc6 previously documented assessment. Patient and/or family updated on plan of care and expected duration. Pain level reassessed. Patient is alert, oriented x 3, equal unlabored respirations, skin warm/dry/pink. Vital Signs: 13:47 BP 177 / 71; Pulse 118; Resp 20 S; Temp 98.0(TE); Pulse Ox 96% on R/A; Weight 85.28 kg aa5 (R); Height 5 ft. 8 in. (172.72 cm) (R); 15:37 BP 156 / 72; Pulse 92; Resp 18 S; Pulse Ox 97% on R/A; kc6 13:47 Body Mass Index 28.59 (85.28 kg, 172.72 cm) aa5 ED Course: 13:44 Patient arrived in ED. rg4 13:45 Jake Fang PA is PHCP. emory 13:45 Mohsen Romero MD is Attending Physician. emory 13:47 Arm band placed on. aa5 13:48 Triage completed. aa5 14:01 Carol Ann Jacques, RN is Primary Nurse. kc6 14:37 CBC with Diff Sent. kc6 14:37 CMP Sent. kc6 14:37 Lipase Sent. kc6 14:37 Inserted saline lock: 20 gauge in left antecubital area, using aseptic technique. Blood kc6 collected. 16:20 Patient has correct armband on for positive identification. Bed in low position. Call kc6 light in reach. Side rails up X 1. Adult w/ patient. 16:20 No provider procedures requiring assistance completed. IV discontinued, intact, kc6 bleeding controlled, No redness/swelling at site. Pressure dressing applied. Administered Medications: 15:16 Drug: traMADol 50 mg Route: PO; kc6 16:20 Follow up: Response: No adverse reaction; Pain is decreased kc6 16:06 Drug: Rocephin (cefTRIAXone) 2 grams Route: IV; Rate: calculated rate; Site: left kc6 antecubital; 16:21 Follow up: Response: No adverse reaction; IV Status: Completed infusion; IV Intake: [id number] Medication: 16:20 VIS not applicable for this client. kc6 Intake: 16:21 IV: 10ml; Total: 10ml. kc6 Outcome: 16:05 Discharge ordered by . emory 16:20 Discharged to home via wheelchair, with significant other. kc6 16:20 Condition: stable 16:20 Discharge instructions given to patient, significant other, Instructed on discharge instructions, follow up and referral plans. medication usage, Demonstrated understanding of instructions, follow-up care, medications, Prescriptions given X 1. 16:21 Patient left the ED. kc6 Signatures: Jake Fang PA PA jmm Calderon, Audri RN RN [email or web address] Thais Siegel rg4 Carol Ann Jacques, RN RN kc6 Corrections: (The following items were deleted from the chart) 13:50 13:47 Initial Sepsis Screen: Does the patient meet any 2 criteria? No. Patient's aa5 initial sepsis screen is negative. Does the patient have a suspected source of infection? No. Patient's initial sepsis screen is negative. aa5 13:50 13:48 Social history: Smoking status: Patient/guardian denies using tobacco, aa5 aa5
--- NOTE | 2022-07-03 16:06 | EDPHYS ---
Physician Documentation [facility] Name: Leslie Baires Age: 71 yrs Sex: Male : 1950 Arrival Date: 07/03/2022 Time: 13:44 Bed 16 Private MD: ED Physician Mohsen Romero HPI: 07/03 14:01 This 71 yrs old Male presents to ER via Ambulatory with complaints of Urinary Problem. jmm 14:01 The patient presents with urinary symptoms. Onset: The symptoms/episode began/occurred jmm gradually, 2 week(s) ago. Modifying factors: The symptoms are alleviated by nothing, the symptoms are aggravated by nothing. This is a 71-year-old male with history of BPH, hypertension. Presents to the ED with complaints of painful urination and fatigue. Denies fever or vomiting. Patient states he was recently diagnosed with a UTI at the beginning of this month which resolved for about 3 days after finishing his antibiotics. Patient does self cath. Historical: - Allergies: 13:48 Aleve; aa5 13:48 Vicodin; aa5 15:08 Hydrocodone-Acetaminophen; kc6 - PMHx: 13:48 BPH; chronic neck and back pain; Hypertension; Kidney stones; aa5 13:48 Myocardial infarction; Kidney problems; aa5 - PSHx: 13:48 heart stent (Right Coronary Artery); aa5 13:49 Skin cancer removed; TURP; aa5 - Immunization history:: Adult Immunizations unknown. - Social history:: Smoking status: Patient/guardian denies using tobacco. ROS: 14:01 Constitutional: Negative for fever, chills, and weight loss, Cardiovascular: Negative jm for chest pain, palpitations, and edema, Respiratory: Negative for shortness of breath, cough, wheezing, and pleuritic chest pain. 14:01 : Positive for urinary symptoms. 14:01 All other systems are negative. Exam: 14:01 Constitutional: This is a well developed, well nourished patient who is awake, alert, jmm and in no acute distress. Head/Face: atraumatic. Eyes: EOMI, no conjunctival erythema appreciated ENT: Moist Mucus Membranes Neck: Trachea midline, Supple Chest/axilla: Normal chest wall appearance and motion. Cardiovascular: Regular rate and rhythm. No edema appreciated Respiratory: Normal respirations, no respiratory distress appreciated Abdomen/GI: Non distended Back: Normal ROM Skin: General appearance color normal MS/ Extremity: Moves all extremities, no obvious deformities appreciated, no edema noted to the lower extremities Neuro: Awake and alert Psych: Behavior is normal, Mood is normal, Patient is cooperative and pleasant Vital Signs: 13:47 BP 177 / 71; Pulse 118; Resp 20 S; Temp 98.0(TE); Pulse Ox 96% on R/A; Weight 85.28 kg aa5 (R); Height 5 ft. 8 in. (172.72 cm) (R); 15:37 BP 156 / 72; Pulse 92; Resp 18 S; Pulse Ox 97% on R/A; kc6 13:47 Body Mass Index 28.59 (85.28 kg, 172.72 cm) aa5 MDM: 14:01 Patient medically screened. [facility] 16:01 Data reviewed: vital signs, nurses notes. Test considered but Not performed: Other [facility] Details CAT scan. Counseling: I had a detailed discussion with the patient and/or guardian regarding: the historical points, exam findings, and any diagnostic results supporting the discharge/admit diagnosis, lab results, the need for outpatient follow up, to return to the emergency department if symptoms worsen or persist or if there are any questions or concerns that arise at home. Response to treatment: the patient's symptoms have mildly improved after treatment, and as a result, I will discharge patient. 07/03 14:01 Order name: CBC with Diff; Complete Time: 14:52 [facility] 07/03 14:01 Order name: CMP; Complete Time: 15:05 [facility] 07/03 14:01 Order name: Lipase; Complete Time: 15:05 [facility] 07/03 14:01 Order name: Urine Culture [facility] 07/03 14:01 Order name: Urine Microscopic Only; Complete Time: 15:33 [facility] 07/03 14:01 Order name: IV Saline Lock; Complete Time: 14:37 [facility] 07/03 14:01 Order name: Labs collected and sent; Complete Time: 14:37 [facility] 07/03 14:01 Order name: Urine Dipstick-Ancillary (obtain specimen); Complete Time: 15:03 [facility] Administered Medications: 15:16 Drug: traMADol 50 mg Route: PO; 6 16:20 Follow up: Response: No adverse reaction; Pain is decreased [facility] 16:06 Drug: Rocephin (cefTRIAXone) 2 grams Route: IV; Rate: calculated rate; Site: left kc6 antecubital; 16:21 Follow up: Response: No adverse reaction; IV Status: Completed infusion; IV Intake: [id number] Disposition: 17:00 Co-signature as Attending Physician, Mohsen Romero MD I reviewed the patient's care rt provided by the Advanced Practice Provider and agree with the diagnosis and treatment plan. Disposition Summary: 07/03/22 16:05 Discharge Ordered Location: Home [facility] Condition: Stable [facility] Diagnosis - UTI/ Urinary tract infection, site not specified [facility] Followup: [facility] - With: Private Physician - When: 2 - 3 days - Reason: Recheck today's complaints, Continuance of care, Re-evaluation by your physician Discharge Instructions: - Discharge Summary Sheet [facility] - Urinary Tract Infection, Adult [facility] Forms: - Medication Reconciliation Form [facility] - Thank You Letter [facility] - Antibiotic Education [facility] - Prescription Opioid Use [facility] Prescriptions: - cefpodoxime 200 mg Oral Tablet - take 1 tablet by ORAL route every 12 hours for 10 days with food; 20 tablet; [facility] Refills: 0, Product Selection Permitted Signatures: Dispatcher [employer] EDJake Linder PA PA Yenifer Diehl RN RN aa5 Carol Ann Jacques RN RN kc6 Mohsen Romero MD MD rt Corrections: (The following items were deleted from the chart) 13:50 13:48 Social history: Smoking status: Patient/guardian denies using tobacco, yany slade
[2022-07-03 16:44] VITALS: TEMP 98
[2022-07-03 16:45] VITALS: BP 156/72; O2SAT 97
== END 2022-07-03 16:21 | disposition home or self-care (01) ==
LOC: ER 13:41
DX: N39.0 Urinary tract infection, site not specified (principal); I10 Essential (primary) hypertension; I25.2 Old myocardial infarction; Z95.818 Presence of other cardiac implants and grafts; Z88.5 Allergy status to narcotic agent; Z88.6 Allergy status to analgesic agent
CPT/HCPCS: 87088; 85025; 87086; 36415; 81015; 83690; 80053; J0696